=== PATIENT | female | born 1970 | race Caucasian/White ===

== ENCOUNTER 2020-09-21 10:44 | Outpatient (REF) | payer OTHER, SELFPAY ==
[2020-09-21 11:28] LABS: COVID-19 Test Negative (Negative)
== END 2020-09-21 10:45 | disposition home or self-care (01) ==
LOC: HO.LAB 10:44
PROVIDERS: PCP Internal Medicine; Visit Provider Internal Medicine
DX: Z20.828 Contact with and (suspected) exposure to other viral communicable diseases (principal)
CPT/HCPCS: 87635

== ENCOUNTER 2020-09-25 07:37 | Outpatient (REF) | payer OTHER, SELFPAY ==
[2020-09-25 08:00] LABS: COVID-19 Test Negative (Negative)
== END 2020-09-25 07:38 | disposition home or self-care (01) ==
LOC: HO.LAB 07:37
PROVIDERS: Visit Provider Internal Medicine
DX: Z20.828 Contact with and (suspected) exposure to other viral communicable diseases (principal)
CPT/HCPCS: 87635

== ENCOUNTER 2020-10-18 07:27 | Outpatient (REF) | payer OTHER, SELFPAY ==
[2020-10-18 08:14] LABS: COVID-19 Test Positive (Negative); IDNOW Serial# 55D5AD1C
== END 2020-10-18 07:28 | disposition home or self-care (01) ==
LOC: HO.EMPCOV 07:27
PROVIDERS: Visit Provider Internal Medicine
DX: Z20.828 Contact with and (suspected) exposure to other viral communicable diseases (principal)
CPT/HCPCS: 87635; C9803

== ENCOUNTER 2020-12-05 12:27 | Outpatient (REF) | payer OTHER, SELFPAY ==
--- NOTE | 2020-12-05 12:32 | XR_ITS ---
EXAMINATION: XR RIBS, RIGHT CLINICAL INFORMATION: Pleurodynia. COMPARISON: Rib radiographs dated 09/01/2018 TECHNIQUE: PA view of the chest as well as 3 views of the right ribs. FINDINGS: Lungs are clear. No consolidation, pneumothorax, or pleural effusion. The cardiomediastinal silhouette and pulmonary vasculature are normal. Osseous structures are unremarkable. Ribs are intact. No fractures are identified. XR/XR ribs RT min 3V w CXR1V IMPRESSION: No displaced fracture.
== END 2020-12-05 12:28 | disposition home or self-care (01) ==
LOC: HO.XRAY 12:27
PROVIDERS: PCP Internal Medicine; Visit Provider Family Medicine
DX: R07.81 Pleurodynia (principal)
CPT/HCPCS: 71101

== ENCOUNTER 2020-12-29 12:04 | Outpatient (REF) | payer OTHER, SELFPAY ==
--- NOTE | ~2020-12-29 | CT_ITS ---
EXAMINATION: CT ABDOMEN AND PELVIS WITH CONTRAST CLINICAL INFORMATION: Unspecified abdominal pain. COMPARISON: CT scan of the abdomen and pelvis February 2015. TECHNIQUE: Multidetector volumetric images were obtained from the superior aspect of the liver through the pubic symphysis following administration 85 mL of Omnipaque 350 intravenous contrast. Sagittal and coronal reformatted images were obtained on the technologist's workstation. Oral contrast: No This CT examination was performed using dose optimization techniques as appropriate, variously including the following: *Automated exposure control *Adjustment of mA and/or kV according to patient size (this includes techniques or standardized protocols for targeted exams where dose is matched to indication/reason for exam; i.e. extremities or head) *Use of iterative reconstruction technique DLP: 550 mGy-cm FINDINGS: LUNG BASES: The visualized lung bases are unremarkable. LIVER, GALLBLADDER, AND BILIARY TREE: Unchanged scattered low-density lesions throughout the liver some too small to clearly characterize with the largest ones clearly reflecting simple cysts. Smaller lesions less than 1 cm also likely reflect simple cysts and appear unchanged compared to prior. The gallbladder is unremarkable with no evidence of radiopaque gallstones, gallbladder wall thickening, or obvious pericholecystic inflammatory changes. PANCREAS: Unremarkable. SPLEEN: Unremarkable. ADRENAL GLANDS: Unremarkable. KIDNEYS AND URETERS: There are 2 tiny low-density lesions in the cortex of the lower pole of the left kidney too small to clearly characterize but likely reflect simple cysts measuring approximately 3 mm. No stones or solid masses. No urinary tract dilatation. BLADDER: Unremarkable. GASTROINTESTINAL TRACT: There is scattered diverticulosis throughout the descending and sigmoid colon. There is also wall thickening and pericolonic stranding in the proximal sigmoid colon not seen previously. The appearance is characteristic for diverticulitis. The segment of bowel measures approximately 5.6 cm. There is no pericolonic abscess. There is no free air in the abdomen. Appendix normal. Small bowel and stomach normal. ABDOMINAL WALL: No significant hernia is appreciated. LYMPH NODES: Normal. VASCULAR: Mild arterial calcification. PELVIC VISCERA: There is a 2.7 cm simple cyst in the left ovary not seen previously. Trace free fluid in the pelvis likely physiologic. OSSEOUS STRUCTURES: Mild arthrosis of the right hip manifested by small subchondral cysts in the acetabulum unchanged. CT/CT abdomen pelvis w con IMPRESSION: Findings characteristic for acute diverticulitis in the proximal sigmoid colon. Additional findings including stable multiple liver lesions unchanged compatible with simple cysts. Some too small to clearly characterize by CT but likely reflect cysts. Tiny low-density lesions in the left kidney likely small cysts. Simple cyst left ovary. Mild arthrosis of the right hip.
[2020-12-29 14:12] LABS: MANUAL DIFF FLAG NO
[2020-12-29 14:15] LABS: Basophils Percent Auto 0.3 % (0-2); Eosinophils Absolute Auto 0.1 X10*3/uL (0.0-0.4); Eosinophils Percent Auto 0.9 % (0-4); Hematocrit 38.7 % (37-47); Hemoglobin 12.9 g/dl (12.0-16.0); Imm Gran Abs Auto 0.03 X10*3/uL (0.00-0.03); Imm Gran Pct Auto 0.2 % (0.0-0.4); Lymphocytes Absolute Auto 2.4 X10*3/uL (1.2-4.9); Mean Corpuscular HGB Conc 33.3 g/dl (31.0-35.0); Mean Corpuscular Hemoglobin 29.9 pg (27.0-33.0); Mean Corpuscular Volume 89.6 fL (80-98); Mean Platelet Volume 10.8 fL (9.4-12.3); Monocytes Percent Auto 8.1 % (2-11); Neutrophils Absolute Auto 9.2 X10*3/uL (2.0-8.3); Neutrophils Percent Auto 71.5 % (45-73); Platelet Count 197 X10*3/uL (160-400); Red Blood Count 4.32 X10*6/uL (4.20-5.50); Red Cell Distribution Width 12.8 % (11.0-16.0); White Blood Count 12.8 X10*3/uL (4.8-10.8)
[2020-12-29 14:50] LABS: Alanine Aminotransferase 13 U/L (0-31); Albumin Level 4.1 g/dL (3.5-5.0); Alkaline Phosphatase 57 U/L (39-117); Anion Gap 13 (12-20); Aspartate Amino Transferase 14 U/L (5-31); Bilirubin Total 0.9 mg/dL (0.0-1.0); Blood Urea Nitrogen 10 mg/dL (9-16); Calcium 9.2 mg/dL (8.4-10.2); Carbon Dioxide 27 mmol/L (22-29); Chloride 101 mmol/L (96-108); Estimated Glomerular Filt Rate > 60; Glucose Random 88 mg/dL (60-115); Potassium 4.2 mmol/L (3.3-5.1); Sodium 137 mmol/L (135-145); Total Protein 6.9 g/dL (6.5-8.0)
[2020-12-29] MEDS: iohexoL 350 MG/ML 100 ML INFUS..BTL IV (16:53)
[2020-12-29] MEDS: Barium Sulfate Oral (Berry) 450 ML ORAL.SUSP 900 ML PO (16:54)
== END 2020-12-29 12:05 | disposition home or self-care (01) ==
LOC: HO.WFDLDS 12:04
PROVIDERS: Visit Provider Family Medicine
DX: R10.9 Unspecified abdominal pain (principal); R10.829 Rebound abdominal tenderness, unspecified site; N83.292 Other ovarian cyst, left side
CPT/HCPCS: 36415; 74177; 80053; 85025; Q9967

== ENCOUNTER 2020-12-29 18:48 | Emergency (ER) | payer OTHER, SELFPAY ==
[2020-12-29 19:09] VITALS: BP 102/65; PULSE 91; RESP 16; TEMP 37; O2SAT 97; BMI 25.2
== END 2020-12-30 09:39 | disposition left against medical advice (07) ==
PROVIDERS: Emergency Provider Emergency Medicine; PCP Internal Medicine
DX: R10.9 Unspecified abdominal pain (principal)
CPT/HCPCS: 36415; 74177; 80053; 85025; 99283; 99284; Q9967

== ENCOUNTER 2021-01-17 07:44 | Outpatient (REF) | payer OTHER, SELFPAY ==
[2021-01-17 08:05] LABS: COVID-19 Test Negative (Negative)
== END 2021-01-17 07:45 | disposition home or self-care (01) ==
LOC: HO.EMPCOV 07:44
PROVIDERS: Visit Provider Internal Medicine
DX: Z20.822 Contact with and (suspected) exposure to COVID-19 (principal)
CPT/HCPCS: 36415; 87635; C9803

== ENCOUNTER 2021-01-30 11:05 | Outpatient (REF) | payer OTHER, SELFPAY ==
[2021-01-30 11:21] LABS: COVID-19 Test Negative (Negative)
== END 2021-01-30 11:06 | disposition home or self-care (01) ==
LOC: HO.LAB 11:05
PROVIDERS: Visit Provider Internal Medicine
DX: Z11.52 Encounter for screening for COVID-19 (principal)
CPT/HCPCS: 36415; 87635; C9803

== ENCOUNTER 2021-05-03 14:06 | Outpatient (REF) | payer OTHER, SELFPAY ==
--- NOTE | ~2021-05-03 | CT_ITS ---
EXAMINATION: CT ABDOMEN AND PELVIS WITH CONTRAST CLINICAL INFORMATION: R10.9 - Unspecified abdominal pain. Prior history diverticulitis. COMPARISON: CT abdomen and pelvis with IV contrast 12/29/2020 TECHNIQUE: Multidetector volumetric images were obtained from the superior aspect of the liver through the pubic symphysis following administration 85 mL of Omnipaque 350 intravenous contrast. Sagittal and coronal reformatted images were obtained on the technologist's workstation. Oral contrast: No This CT examination was performed using dose optimization techniques as appropriate, variously including the following: *Automated exposure control *Adjustment of mA and/or kV according to patient size (this includes techniques or standardized protocols for targeted exams where dose is matched to indication/reason for exam; i.e. extremities or head) *Use of iterative reconstruction technique DLP: 354 mGy-cm FINDINGS: LUNG BASES: The visualized lung bases are unremarkable. LIVER, GALLBLADDER, AND BILIARY TREE: Liver is normal in size and smooth in contour. There are scattered cysts again seen similar in size and number to prior CT 12/29/2020, largest subcapsular segment 2 left lobe measuring 3.4 cm. There is no intrahepatic ductal dilatation. There is punctate calculus dependent gallbladder on the coronal and sagittal reformatted images, not previously demonstrated. There is no gallbladder wall thickening or pericholecystic inflammatory changes. Common duct is unremarkable. PANCREAS: Unremarkable. SPLEEN: Unremarkable. ADRENAL GLANDS: Unremarkable. KIDNEYS AND URETERS: The kidneys are normal in size, shape, and attenuation. No hydronephrosis, hydroureter, or calculi seen. No perinephric stranding. BLADDER: Unremarkable. GASTROINTESTINAL TRACT: There is subtle long segment wall thickening distal ileum approximately 15 cm in length with mild hyperenhancement of the wall. Semisolid contents are scattered in the lumen without proximal obstruction. No mesenteric stranding. The remainder of the small and large bowel are unremarkable. The appendix is normal. There is no ascites or fluid collection. ABDOMINAL WALL: No significant hernia is appreciated. LYMPH NODES: No retroperitoneal or pelvic lymphadenopathy. There is a 6 mm mesenteric node right lower quadrant within limits of normal. No inguinal lymphadenopathy. VASCULAR: Unremarkable. PELVIC VISCERA: Unremarkable. OSSEOUS STRUCTURES: Unremarkable. No sacroiliitis. CT/CT abdomen pelvis w con IMPRESSION: 1. Suspect mild ileitis, approximately 15 cm in length. No proximal obstruction. 2. Normal appendix. No diverticulitis. No ascites or fluid collection. 3. Scattered hepatic cysts again noted. 4. Probable punctate gallstone. No gallbladder wall thickening or ductal dilatation.
[2021-05-03 14:52] LABS: MANUAL DIFF FLAG NO
[2021-05-03 14:53] LABS: Glucose Urine UA NEG (NEG); Leukocyte Esterase Urine NEG (NEG); Nitrite Urine NEG (NEG); Specific Gravity - Urine 1.025 (1.005-1.025); Urine Blood 1+ (NEG); Urine Ketones >=80 MG/DL (NEG); Urine Protein NEG (NEG-TRACE)
[2021-05-03 14:55] LABS: Basophils Percent Auto 0.1 % (0-2); Eosinophils Percent Auto 0.1 % (0-4); Hematocrit 39.9 % (37-47); Hemoglobin 13.2 g/dl (12.0-16.0); Imm Gran Abs Auto 0.02 X10*3/uL (0.00-0.03); Imm Gran Pct Auto 0.2 % (0.0-0.4); Lymphocytes Absolute Auto 2.5 X10*3/uL (1.2-4.9); Lymphocytes Percent Auto 30.4 % (20-40); Mean Corpuscular HGB Conc 33.1 g/dl (31.0-35.0); Mean Corpuscular Hemoglobin 29.5 pg (27.0-33.0); Mean Corpuscular Volume 89.1 fL (80-98); Mean Platelet Volume 10.7 fL (9.4-12.3); Monocytes Absolute Auto 0.5 X10*3/uL (0.1-1.2); Monocytes Percent Auto 5.8 % (2-11); Neutrophils Absolute Auto 5.1 X10*3/uL (2.0-8.3); Neutrophils Percent Auto 63.4 % (45-73); Platelet Count 223 X10*3/uL (160-400); Red Blood Count 4.48 X10*6/uL (4.20-5.50); Red Cell Distribution Width 12.4 % (11.0-16.0); White Blood Count 8.1 X10*3/uL (4.8-10.8)
[2021-05-03 14:55] LABS: Appearance Urine CLEAR; Color Urine YELLOW
[2021-05-03 15:07] LABS: Squamous Epithelial Cell Urine 1+ /LPF; WBC Urine 0-2 /HPF (0-4)
[2021-05-03 15:08] LABS: Mucus Urine TRACE /LPF
[2021-05-03 15:27] LABS: Alanine Aminotransferase 21 U/L (0-31); Albumin Level 4.5 g/dL (3.5-5.0); Alkaline Phosphatase 56 U/L (39-117); Anion Gap 12 (12-20); Aspartate Amino Transferase 21 U/L (5-31); Bilirubin Total 0.9 mg/dL (0.0-1.0); Blood Urea Nitrogen 14 mg/dL (9-16); Calcium 9.9 mg/dL (8.4-10.2); Carbon Dioxide 25 mmol/L (22-29); Chloride 105 mmol/L (96-108); Estimated Glomerular Filt Rate > 60; Glucose Random 83 mg/dL (60-115); Lipase 12 U/L (8-78); Potassium 3.8 mmol/L (3.3-5.1); Sodium 138 mmol/L (135-145); Total Protein 7.3 g/dL (6.5-8.0)
[2021-05-03 15:39] LABS: Erythrocyte Sedimentation Rate 7 MM/HR (0-20)
== END 2021-05-03 14:07 | disposition home or self-care (01) ==
LOC: HO.CT 14:06
PROVIDERS: PCP Internal Medicine; Visit Provider Internal Medicine
DX: R10.84 Generalized abdominal pain (principal)
CPT/HCPCS: 36415; 74177; 80053; 81001; 83690; 85025; 85652

== ENCOUNTER → 2021-05-08 15:22 | Outpatient (BNVA) | payer OTHER, SELFPAY | PROVIDERS: PCP Internal Medicine; Visit Provider Internal Medicine Gastroenterology ==

== ENCOUNTER 2021-05-09 08:00 | Outpatient (REF) | payer OTHER, SELFPAY ==
[2021-05-09 10:07] LABS: MANUAL DIFF FLAG NO
[2021-05-09 10:15] LABS: Basophils Percent Auto 0.6 % (0-2); Eosinophils Absolute Auto 0.2 X10*3/uL (0.0-0.4); Hematocrit 38.7 % (37-47); Hemoglobin 12.6 g/dl (12.0-16.0); Imm Gran Abs Auto 0.01 X10*3/uL (0.00-0.03); Imm Gran Pct Auto 0.2 % (0.0-0.4); Lymphocytes Absolute Auto 2.2 X10*3/uL (1.2-4.9); Lymphocytes Percent Auto 43.5 % (20-40); Mean Corpuscular HGB Conc 32.6 g/dl (31.0-35.0); Mean Corpuscular Hemoglobin 29.4 pg (27.0-33.0); Mean Corpuscular Volume 90.2 fL (80-98); Monocytes Absolute Auto 0.5 X10*3/uL (0.1-1.2); Monocytes Percent Auto 8.9 % (2-11); Neutrophils Absolute Auto 2.2 X10*3/uL (2.0-8.3); Neutrophils Percent Auto 43.8 % (45-73); Platelet Count 208 X10*3/uL (160-400); Red Blood Count 4.29 X10*6/uL (4.20-5.50); Red Cell Distribution Width 12.7 % (11.0-16.0); White Blood Count 5.1 X10*3/uL (4.8-10.8)
[2021-05-09 10:54] LABS: C Reactive Protein 0.26 mg/dL (< or = 0.50)
[2021-05-09 10:57] LABS: Erythrocyte Sedimentation Rate 5 MM/HR (0-20)
[2021-05-09 12:12] LABS: Vitamin B12 347 pg/mL (200-900)
== END 2021-05-09 08:01 | disposition home or self-care (01) ==
LOC: HO.LAB 08:00
PROVIDERS: PCP Internal Medicine; Visit Provider Internal Medicine Gastroenterology
DX: R10.84 Generalized abdominal pain (principal); R93.5 Abnormal findings on diagnostic imaging of other abdominal regions, including retroperitoneum
CPT/HCPCS: 36415; 81479; 82397; 82607; 82746; 83520; 85025; 85652; 86140; 88346; 88350

== ENCOUNTER 2021-05-14 09:42 | Outpatient (REF) | payer OTHER, SELFPAY ==
[2021-05-18 22:23] LABS: Calprotectin, Fecal 148 mcg/g
== END 2021-05-14 09:43 | disposition home or self-care (01) ==
LOC: HO.LNP 09:42
PROVIDERS: Visit Provider Internal Medicine Gastroenterology
DX: R10.84 Generalized abdominal pain (principal)
CPT/HCPCS: 83993

== ENCOUNTER 2021-05-22 07:04 | Day surgery (SDC) | payer OTHER, SELFPAY ==
--- NOTE | 2021-05-21 10:41 | P.CONAN_ITS ---
Documented by User: Margaret Zuniga 05/21/21 10:42 HPI - Anesthesia Eval Consult details Narrative: 50yo F for Colonoscopy PMFSH Active Problems Active Problems: All Active Problems (Updated 05/15/21 @ 15:33 by Merari Harrison) Rib pain on right side (Acute) Abdominal pain (Acute) Rebound abdominal tenderness (Acute) Abnormal CT of the abdomen (Acute) Ileitis (Acute) Right flank pain (Acute) Diffuse abdominal pain (Acute) Past Medical History Medical History (Updated 05/15/21 @ 15:33 by Merari Harrison) Adopted Diffuse abdominal pain Hx of deep venous thrombosis Ileitis Kidney stone Right flank pain Family History Family History (Updated 05/06/21 @ 21:45 by Faheem Troy MD) Other Unknown family medical history Surgical History Surgical History (Updated 05/15/21 @ 15:33 by Merari Harrison) H/O colonoscopy H/O esophagogastroduodenoscopy History of cystoscopy History of laparoscopy (~2009) History of lithotripsy History of removal of calculus of renal pelvis through percutaneous nephrostomy (~2013) Social History Social History Household Members: Spouse Housing: House Alcohol intake: current Alcohol intake frequency: holidays/special occasions only Patient Tobacco Use Status: Former Tobacco user Quit Date: 1999 Years Smoked: 10 Use of substances other than those prescribed or required for medical reasons: No Are you DNR?: No Advance Directives: No Advance Directives Information Provided: Yes service: No Current occupational status: employed 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 Meds Allergies Allergy/AdvReac Type Severity Reaction Status Date / Time Sulfa (Sulfonamide Allergy Intermediate ITCHING, Verified 05/22/21 07:37 Antibiotics) pruritus [SULFA (SULFONAMIDE ANTIBIOTICS)] Home Medications Medication Instructions Recorded Confirmed Last Taken Type norethindrone (contraceptive) 0.35 0.35 mg PO DAILY 12/04/20 05/08/21 Unknown History mg tablet Exam Exam Date and Time: May 21, 2021 1041 Assessment and Plan Assessment Anesthesia Assessment: Chart Reviewed Documented by User: Amelia Anti 05/22/21 07:55 PMFSH Past Medical History Medical History (Updated 05/15/21 @ 15:33 by Merari Harrison) Adopted Diffuse abdominal pain Hx of deep venous thrombosis Ileitis Kidney stone Right flank pain Family History Family History (Updated 05/06/21 @ 21:45 by Faheem Troy MD) Other Unknown family medical history Surgical History Surgical History (Updated 05/15/21 @ 15:33 by Merari Harrison) H/O colonoscopy H/O esophagogastroduodenoscopy History of cystoscopy History of laparoscopy (~2009) History of lithotripsy History of removal of calculus of renal pelvis through percutaneous nephrostomy (~2013) Social History Social History Household Members: Spouse Housing: House Alcohol intake: current Alcohol intake frequency: holidays/special occasions only Patient Tobacco Use Status: Former Tobacco user Quit Date: 1999 Smoked: 10 Use of substances other than those prescribed or required for medical reasons: No Are you DNR?: No Advance Directives: No Advance Directives Information Provided: Yes service: No Current occupational status: employed 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 Meds Allergies Allergy/AdvReac Type Severity Reaction Status Date / Time Sulfa (Sulfonamide Allergy Intermediate ITCHING, Verified 05/22/21 07:37 Antibiotics) pruritus [SULFA (SULFONAMIDE ANTIBIOTICS)] Home Medications Medication Instructions Recorded Confirmed Last Taken Type norethindrone (contraceptive) 0.35 0.35 mg PO DAILY 12/04/20 05/08/21 Unknown History mg tablet Exam Airway Mallampati Class: I TM Dist: >3cm Neck ROM: Full Loose/Missing/Broken Teeth: Yes (Slightly loose from invisalign) Heart: RRR Lungs: CTA Assessment and Plan Assessment Anesthesia Assessment: Anesthesia Plan Discussed and Chart Reviewed Final Anesthetic Review NPO: Yes ASA Class: II Final Preanesthetic Review: Meds/Allgs Chart Reviewed, Consent Obtained/Reviewed and Anes Risks/Benef Reviewed Patient Risk: Low Procedure Risk: Low Anesthetic Plan Anesthetic Plan: MAC: Disposition: Standard PACU
[2021-05-22 07:16] VITALS: BMI 25.0
[2021-05-22 07:22] VITALS: BP 137/77; PULSE 80; RESP 16; TEMP 36.5; O2SAT 98
[2021-05-22 07:24] LABS: UPreg QC Valid YES; Urine Pregnancy NEGATIVE (NEGATIVE)
--- NOTE | 2021-05-22 07:32 | W.PM.OPN ---
Operative Note Operative Note Date of Service: 05/22/21 Narrative: Pre-op diagnosis: Abdominal pain, abnormal CT scan of the small intestine Post-op diagnosis: other ( ileitis, diverticulosis, hemorrhoids) Procedure: COLONOSCOPY TILL CECUM WITH BIOPSIES Consent: Indications for the procedure and potential complications of bleeding, perforation, reaction to medications and missed diagnosis were discussed with the patient and informed consent was obtained. Instrument: Olympus PCF H 190 L variable stiffness pediatric colonoscope Monitoring: Vital signs and clinical assessment, intermittent blood pressure monitoring, continuous EKG monitoring, Pulse oximetry and Carbon Dioxide monitoring were done throughout the procedure. Colon withdrawl time was 23 minutes. Procedure: The patient was placed in the left lateral decubitis position and pre-procedure medications were administered. After a digital rectal examination of the ano-rectum, the video colonoscope was inserted into the rectum and advanced through the colon to the cecum. The colonoscope was slowly withdrawn in a retrograde panoramic fashion and the colon mucosa was carefully examined including a retroflexed view of the rectum. Findings and interventions are described below. Procedure Difficulty: Without difficulty Findings: Terminal Ileum: Distal 15 cms was examined and showed edema, erythema with luminal narrowing and scattered 4-5 mm ulcers - biopsies were obtained Cecum: Normal Ascending Colon: Normal Transverse Colon: Normal Descending Colon: Moderate diverticulosis Sigmoid Colon: Moderate diverticulosis Rectum: Normal Ano-rectum: Small internal hemorrhoids Colon preparation: Good Impression and Post Procedure Diagnosis: Colonoscopy Findings: No polyps were detected Random biopsies were obtained pelvic TI, right and left colon to check for IBD Moderate diverticulosis seen in the left colon Small hemorrhoids on retroflexed exam. Plan: Await pathology results Patient has an appointment on 06/07/21 in the [facility] with Trudy Baltazar M.D.. Repeat Colonoscopy in 5 years if biopsies are normal. Above findings were reviewed with the patient and diverticulosis handouts were given in the discharge area Surgeon: Trudy Baltazar MD Anesthesia: MAC (Shabnam Cooper CRNA) Was an Envelope Stamping Machine Operator used for this Procedure?: Yes Envelope Stamping Machine Operator: Patrizia Faith Estimated blood loss (mL): 0 Pathology: other (A. TERMINAL ILEUM BX'S R/O CROHNS DISEASE B. RIGHT COLON BX'S R/O IBD C. LEFT COLON BX'S R/O IBD) Condition: stable Disposition: PACU
--- NOTE | 2021-05-22 07:32 | MHC.SHP ---
Pre-Procedural Eval Section A Date of Service: 05/22/21 The patient is an INPATIENT: No Changes since office visit: Yes Patient answered all questions; No Cold of Flu in the past 2 weeks, No New Medical Problems and No Changes in Medication The History & Physical has been completed within 30 days and I have reviewed it.: Yes Section B Chief Complaint: Generalized abdominal pain Allergies: Allergies Allergy/AdvReac Type Severity Reaction Status Date / Time Sulfa (Sulfonamide Allergy Intermediate ITCHING, Verified 05/08/21 15:32 Antibiotics) pruritus [SULFA (SULFONAMIDE ANTIBIOTICS)] Plan I have reviewed the history and physical and performed a pertinent physical examination on my patient. No changes have occurred unless specified.
[2021-05-22] MEDS: Lactated Ringers 1,000 ML 100 ML IVCONT (07:36)
[2021-05-22 08:41] VITALS: BP 105/63; PULSE 73; RESP 14; TEMP 36.3; O2SAT 100
[2021-05-22 08:56] VITALS: BP 108/71; PULSE 83; RESP 16; TEMP 36.3; O2SAT 99
== END 2021-05-22 09:46 | disposition home or self-care (01) ==
PROVIDERS: Nurse Practitioner; PCP Internal Medicine; Visit Provider Internal Medicine Gastroenterology
PROC: 0DJD8ZZ Inspection of Lower Intestinal Tract, Via Natural or Artificial Opening Endoscopic (ICD-10-PCS; CPT 45378; principal; 2021-05-22 08:10)
DX: R10.84 Generalized abdominal pain (principal); K57.30 Diverticulosis of large intestine without perforation or abscess without bleeding; K64.8 Other hemorrhoids; K52.9 Noninfective gastroenteritis and colitis, unspecified; Z79.899 Other long term (current) drug therapy; Z88.2 Allergy status to sulfonamides; Z86.718 Personal history of other venous thrombosis and embolism; Z87.442 Personal history of urinary calculi; Z87.891 Personal history of nicotine dependence
CPT/HCPCS: 45380; 81025; 88305

== ENCOUNTER → 2021-06-07 09:22 | Outpatient (BNVA) | payer OTHER, SELFPAY | PROVIDERS: PCP Internal Medicine; Visit Provider Internal Medicine Gastroenterology ==

== ENCOUNTER 2021-08-01 16:27 | Outpatient (REF) | payer OTHER, SELFPAY ==
[2021-08-01 17:11] LABS: MANUAL DIFF FLAG NO
[2021-08-01 17:18] LABS: Appearance Urine HAZY; Color Urine YELLOW; Glucose Urine UA NEG (NEG); Leukocyte Esterase Urine NEG (NEG); Nitrite Urine NEG (NEG); UACC Culture Trigger NO; Urine Blood 2+ (NEG); Urine Ketones NEG (NEG); Urine Protein NEG (NEG-TRACE)
[2021-08-01 17:20] LABS: Basophils Percent Auto 0.7 % (0-2); Eosinophils Absolute Auto 0.2 X10*3/uL (0.0-0.4); Eosinophils Percent Auto 3.2 % (0-4); Hematocrit 37.7 % (37-47); Hemoglobin 12.7 g/dl (12.0-16.0); Imm Gran Abs Auto 0.01 X10*3/uL (0.00-0.03); Imm Gran Pct Auto 0.2 % (0.0-0.4); Lymphocytes Absolute Auto 2.3 X10*3/uL (1.2-4.9); Lymphocytes Percent Auto 40.9 % (20-40); Mean Corpuscular HGB Conc 33.7 g/dl (31.0-35.0); Mean Corpuscular Hemoglobin 30.2 pg (27.0-33.0); Mean Corpuscular Volume 89.8 fL (80-98); Monocytes Absolute Auto 0.4 X10*3/uL (0.1-1.2); Monocytes Percent Auto 7.7 % (2-11); Neutrophils Absolute Auto 2.6 X10*3/uL (2.0-8.3); Neutrophils Percent Auto 47.3 % (45-73); Platelet Count 184 X10*3/uL (160-400); Red Cell Distribution Width 12.6 % (11.0-16.0); White Blood Count 5.6 X10*3/uL (4.8-10.8)
[2021-08-01 17:27] LABS: Bacteria Urine TRACE /LPF; Mucus Urine 2+ /LPF; Renal Epithelial Cells Urine TRACE /LPF; Squamous Epithelial Cell Urine 3+ /LPF; WBC Urine 0 /HPF (0-4)
[2021-08-01 17:43] LABS: Lipase 16 U/L (8-78)
[2021-08-01 18:35] LABS: Erythrocyte Sedimentation Rate 4 MM/HR (0-20)
== END 2021-08-01 16:28 | disposition home or self-care (01) ==
LOC: HO.LAB 16:27
PROVIDERS: PCP Internal Medicine; Visit Provider Internal Medicine Gastroenterology
DX: K57.92 Diverticulitis of intestine, part unspecified, without perforation or abscess without bleeding (principal); R10.84 Generalized abdominal pain
CPT/HCPCS: 36415; 81001; 83690; 85025; 85652; 86140

== ENCOUNTER → 2021-08-02 14:45 | Outpatient (BNVA) | payer OTHER, SELFPAY | PROVIDERS: PCP Internal Medicine; Visit Provider Internal Medicine Gastroenterology ==

== ENCOUNTER → 2021-09-19 11:22 | Outpatient (BNVA) | payer SELFPAY | PROVIDERS: PCP Internal Medicine; Visit Provider Physician Assistant | DX: Z02.79 Encounter for issue of other medical certificate (principal) ==

== ENCOUNTER 2021-10-23 08:02 | Outpatient (REF) | payer OTHER, SELFPAY ==
[2021-10-23 08:29] LABS: Binax Internal Control QC Valid; Binax Lot number: 1911; Binax Now Covid-19 Ag Negative (Negative)
== END 2021-10-23 08:03 | disposition home or self-care (01) ==
LOC: HO.LAB 08:02
PROVIDERS: PCP Internal Medicine; Visit Provider Internal Medicine
DX: Z20.822 Contact with and (suspected) exposure to COVID-19 (principal)
CPT/HCPCS: C9803

== ENCOUNTER → 2022-01-31 11:07 | Outpatient (BNVA) | payer OTHER, SELFPAY | PROVIDERS: Referring Provider Internal Medicine; Visit Provider Internal Medicine Gastroenterology ==

== ENCOUNTER 2022-02-01 08:11 | Outpatient (REF) | payer OTHER, SELFPAY ==
[2022-02-01 08:43] LABS: MANUAL DIFF FLAG NO
[2022-02-01 09:12] LABS: Basophils Absolute Auto 0.1 X10*3/uL (0.0-0.2); Basophils Percent Auto 0.9 % (0-2); Eosinophils Absolute Auto 0.2 X10*3/uL (0.0-0.4); Eosinophils Percent Auto 2.9 % (0-4); Hematocrit 40.1 % (37.0-47.0); Hemoglobin 12.9 g/dl (12.0-16.0); Imm Gran Abs Auto 0.01 X10*3/uL (0.00-0.03); Imm Gran Pct Auto 0.2 % (0.0-0.4); Lymphocytes Absolute Auto 2.6 X10*3/uL (1.2-4.9); Lymphocytes Percent Auto 44.7 % (20-40); Mean Corpuscular HGB Conc 32.2 g/dl (31.0-35.0); Mean Corpuscular Hemoglobin 29.3 pg (27.0-33.0); Mean Corpuscular Volume 90.9 fL (80.0-98.0); Mean Platelet Volume 10.7 fL (9.4-12.3); Monocytes Absolute Auto 0.5 X10*3/uL (0.1-1.2); Monocytes Percent Auto 7.9 % (2-11); Neutrophils Absolute Auto 2.5 x10*3/uL (2.0-8.3); Neutrophils Percent Auto 43.4 % (45-73); Platelet Count 199 X10*3/uL (160-400); Red Blood Count 4.41 X10*6/uL (4.20-5.50); Red Cell Distribution Width 12.7 % (11.0-16.0); White Blood Count 5.8 X10*3/uL (4.8-10.8)
[2022-02-01 09:36] LABS: Alanine Aminotransferase 16 U/L (0-31); Albumin Level 4.2 g/dL (3.5-5.0); Alkaline Phosphatase 44 U/L (39-117); Aspartate Amino Transferase 17 U/L (5-31); Bilirubin Direct 0.2 mg/dL (0.0-0.5); Bilirubin Total 0.6 mg/dL (0.0-1.0); Blood Urea Nitrogen 12 mg/dL (9-16); C Reactive Protein 0.23 mg/dL (< or = 0.50); Estimated Glomerular Filt Rate > 60; Total Protein 6.9 g/dL (6.5-8.0)
== END 2022-02-01 08:12 | disposition home or self-care (01) ==
LOC: HO.LAB 08:11
PROVIDERS: PCP Internal Medicine; Visit Provider Internal Medicine Gastroenterology
DX: K52.9 Noninfective gastroenteritis and colitis, unspecified (principal)
CPT/HCPCS: 36415; 80076; 82565; 84520; 85025; 86140

== ENCOUNTER 2022-07-24 06:23 | Outpatient (REF) | payer OTHER, SELFPAY ==
--- NOTE | ~2022-07-24 | CT_ITS ---
EXAMINATION: CT ABDOMEN AND PELVIS WITH CONTRAST CLINICAL INFORMATION: Abdominal pain. Follow-up question ileitis on prior CT COMPARISON: Previous CT of the abdomen and pelvis April 2021 TECHNIQUE: Multidetector volumetric images were obtained from the superior aspect of the liver through the pubic symphysis following administration 85 mL of Omnipaque 350 intravenous contrast. Sagittal and coronal reformatted images were obtained on the technologist's workstation. Oral contrast: Yes This CT examination was performed using dose optimization techniques as appropriate, variously including the following: *Automated exposure control *Adjustment of mA and/or kV according to patient size (this includes techniques or standardized protocols for targeted exams where dose is matched to indication/reason for exam; i.e. extremities or head) *Use of iterative reconstruction technique DLP: 327 mGy-cm FINDINGS: LUNG BASES: The visualized lung bases are unremarkable. LIVER, GALLBLADDER, AND BILIARY TREE: There are multiple liver cysts that are stable. The largest measures 4 x 5 cm in the lateral segment of the left lobe of the liver. The gallbladder is normal. There is no biliary duct dilatation. PANCREAS: Unremarkable. SPLEEN: Unremarkable. ADRENAL GLANDS: Unremarkable. KIDNEYS AND URETERS: The kidneys are normal in size, shape, and attenuation. There is fullness of the left renal pelvis questionable for mild UPJ obstruction. The right kidney is normal BLADDER: Unremarkable. GASTROINTESTINAL TRACT: There is diverticulosis of the colon. There is a stool in the distal colon questionable for mild constipation. The terminal ileum is slightly distended measuring up to 1.9 cm. This demonstrates slight irregular or tethered course and wall irregularity. No wall thickening or enhancement to suggest acute ileitis is seen. No stricture or evidence of obstruction is seen. The small and large bowel is otherwise normal. The appendix is normal. The stomach is normal. ABDOMINAL WALL: No significant hernia is appreciated. LYMPH NODES: There are small, small bowel mesentery lymph nodes. No enlarged lymph nodes are seen. No ascites. VASCULAR: Unremarkable. PELVIC VISCERA: Heterogeneous appearing uterus questionable for small fibroids. Adnexa appear unremarkable. OSSEOUS STRUCTURES: Unremarkable. CT/CT abdomen pelvis w IV con IMPRESSION: Probable old postinflammatory changes of the terminal ileum with slight dilatation, mild wall irregularity and irregular tethered course. No evidence of active ileitis. Stable multiple liver cysts. Fleischner guidelines were followed.
[2022-07-24] MEDS: iohexoL 350 MG/ML 75 ML INFUS..BTL 85 ML IV (08:21)
[2022-07-24] MEDS: Barium Sulfate Oral (Vanilla) 450 ML ORAL.SUSP 900 ML PO (08:21)
== END 2022-07-24 06:24 | disposition home or self-care (01) ==
LOC: HO.CT 06:23
PROVIDERS: Visit Provider Internal Medicine Gastroenterology
DX: R93.5 Abnormal findings on diagnostic imaging of other abdominal regions, including retroperitoneum (principal)
CPT/HCPCS: 74177; Q9967

== ENCOUNTER 2022-08-08 09:26 | Outpatient (REF) | payer OTHER, SELFPAY ==
--- NOTE | 2022-08-08 09:32 | ECG_ITS ---
Test Reason : K57.92, Z01.818 Blood Pressure : / mmHG Vent. Rate : 058 BPM Atrial Rate : 058 BPM P-R Int : 146 ms QRS Dur : 090 ms QT Int : 418 ms P-R-T Axes : 073 047 050 degrees QTc Int : 410 ms Sinus bradycardia Otherwise normal ECG No previous ECGs available Referred By: Faheem Troy Electronically Signed By:WHIT ACOSTA
[2022-08-08 10:01] LABS: MANUAL DIFF FLAG NO
[2022-08-08 10:18] LABS: Basophils Percent Auto 0.8 % (0-2); Eosinophils Absolute Auto 0.1 X10*3/uL (0.0-0.4); Eosinophils Percent Auto 1.7 % (0-4); Hematocrit 38.8 % (37.0-47.0); Hemoglobin 12.9 g/dl (12.0-16.0); Imm Gran Abs Auto 0.01 X10*3/uL (0.00-0.03); Imm Gran Pct Auto 0.2 % (0.0-0.4); Lymphocytes Absolute Auto 1.9 X10*3/uL (1.2-4.9); Lymphocytes Percent Auto 35.2 % (20-40); Mean Corpuscular HGB Conc 33.2 g/dl (31.0-35.0); Mean Corpuscular Hemoglobin 29.7 pg (27.0-33.0); Mean Corpuscular Volume 89.2 fL (80.0-98.0); Mean Platelet Volume 10.6 fL (9.4-12.3); Monocytes Absolute Auto 0.4 X10*3/uL (0.1-1.2); Monocytes Percent Auto 7.2 % (2-11); Neutrophils Absolute Auto 2.9 x10*3/uL (2.0-8.3); Neutrophils Percent Auto 54.9 % (45-73); Platelet Count 176 X10*3/uL (160-400); Red Blood Count 4.35 X10*6/uL (4.20-5.50); Red Cell Distribution Width 12.6 % (11.0-16.0); White Blood Count 5.3 X10*3/uL (4.8-10.8)
[2022-08-08 10:23] LABS: INTERNATIONAL NORM RATIO 0.9 (0.9-1.1); Prothrombin Time 10.7 SEC (10.0-13.1)
[2022-08-08 10:26] LABS: Partial Thromboplastin Time 29.4 SEC (26.0-36.4)
[2022-08-08 10:59] LABS: Alanine Aminotransferase 33 U/L (0-31); Albumin Level 4.3 g/dL (3.5-5.0); Alkaline Phosphatase 40 U/L (39-117); Anion Gap 15 (12-20); Aspartate Amino Transferase 24 U/L (5-31); Bilirubin Total 0.8 mg/dL (0.0-1.0); Blood Urea Nitrogen 13 mg/dL (9-16); C Reactive Protein 0.12 mg/dL (< or = 0.50); Calcium 9.4 mg/dL (8.4-10.2); Carbon Dioxide 23 mmol/L (22-29); Chloride 106 mmol/L (96-108); Estimated Glomerular Filt Rate > 60; Glucose Random 80 mg/dL (60-115); Lipase 27 U/L (8-78); Potassium 4.3 mmol/L (3.3-5.1); Sodium 140 mmol/L (135-145); Total Protein 6.9 g/dL (6.5-8.0)
[2022-08-08 11:29] LABS: Erythrocyte Sedimentation Rate 3 MM/HR (0-20)
[2022-08-11 18:37] LABS: Anti-Thrombin III Antigen 87 % (80-120)
== END 2022-08-08 09:27 | disposition home or self-care (01) ==
LOC: HO.LAB 09:26
PROVIDERS: PCP Internal Medicine; Visit Provider Internal Medicine
DX: Z01.818 Encounter for other preprocedural examination (principal); K57.92 Diverticulitis of intestine, part unspecified, without perforation or abscess without bleeding; C50.912 Malignant neoplasm of unspecified site of left female breast; M79.7 Fibromyalgia; R10.9 Unspecified abdominal pain; K52.9 Noninfective gastroenteritis and colitis, unspecified; Z86.718 Personal history of other venous thrombosis and embolism
CPT/HCPCS: 36415; 80053; 83690; 84443; 85025; 85301; 85610; 85652; 85730; 86140; 93005

== ENCOUNTER 2023-01-10 08:27 | Outpatient (AMB) | payer OTHER, SELFPAY ==
--- NOTE | 2023-01-10 08:49 | MHC.OFFVIS ---
Intake Intake Visit Reasons: 6 month follow up Intake Note: Patient follow up for abdominal pain and lab, fecal and CT results. Patient cc: constipation and denies any other GI issues. 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: No Allergies Sulfa (Sulfonamide Antibiotics) [SULFA (SULFONAMIDE ANTIBIOTICS)] Allergy (Intermediate, Verified 09/05/23 19:21) ITCHING, pruritus Medication List - Last Reconciled 01/10/23 by Trudy Baltazar MD calcium carbonate (Calcium 500) 500 mg PO DAILY cholecalciferol (vitamin D3) 50 mcg PO DAILY docusate sodium (Colace) 300 mg PO DAILY duloxetine 20 mg PO DAILY ibuprofen 800 mg PO TID PRN letrozole 2.5 mg PO DAILY leuprolide (3 month) (Lupron Depot) 22.5 mg IM [id number] mesalamine ER (Pentasa) 500 mg PO TID 30 days polyethylene glycol 3350 (Miralax) 17 grams PO DAILY HPI 6 month follow up HPI Details Telemedicine visit for this 52-year-old female for FU of diverticulitis and ileitis. 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 Had repeat surgery due to infection. She has been seen at the [facility] [place] [facility] advised screening for Ovarian and Pancreatic CA (Referred to Dr Peng at [facility] for pancreatic cancer screening) Pt has a hx of endometriosis, gallstones, kidney stones and questionable history of atrial flutter IMAGING STUDIES:? 07/24/[address] SCAN SHOWED: GASTROINTESTINAL TRACT: There is diverticulosis of the colon. There is a stool in the distal colon questionable for mild constipation. The terminal ileum is slightly distended measuring up to 1.9 cm. This demonstrates slight irregular or tethered course and wall irregularity. No wall thickening or enhancement to suggest acute ileitis is seen. No stricture or evidence of obstruction is seen. The small and large bowel is otherwise normal. The appendix is normal. The stomach is normal. 05/03/[address] scan showed 1. Suspect mild ileitis, approximately 15 cm in length. No proximal obstruction. 2. Normal appendix. No diverticulitis. No ascites or fluid collection. 3. Scattered hepatic cysts again noted. 4. Probable punctate gallstone. No gallbladder wall thickening or ductal dilatation. ENDOSCOPIC STUDIES:? 05/22/21 COLONOSCOPY SHOWED: Terminal Ileum: Distal 15 cms was examined and showed edema, erythema with luminal narrowing and scattered 4-5 mm ulcers - biopsies were obtained Impression and Post Procedure Diagnosis: No polyps were detected Random biopsies were obtained pelvic TI, right and left colon to check for IBD Moderate diverticulosis seen in the left colon Small hemorrhoids on retroflexed exam. Plan:? Repeat Colonoscopy in 5 years if biopsies are normal. Above findings were reviewed with the patient and? diverticulosis handouts were given in the discharge area BIOPSIES SHOWED: A.? Terminal ileum, biopsy:? Actively inflamed ileocolonic mucosa; no fully developed chronic injury seen. B.? Colon, right, biopsy:? Colonic mucosa within normal limits. C.? Colon, left, biopsy:? Colonic mucosa within normal limits. COMMENT:? The differential diagnosis for active inflammation in the terminal ileum in this case includes incipient inflammatory bowel disease, infection, drugs (e.g. NSAIDs) and other immune mediated processes.? No chronic inflammatory change is seen.? Please correlate with clinical history. TODAY'S VISIT: Always constipated due to multiple medications. Has a BM once every 3 days Taking colace 3 times a day and trying to use the Miralax Takes 3 days for Miralax to work. Has a weird feeling in her intestines - ? burning feeling. PAST VISITS: Abd CT results reviewed Denies recurrent abdominal pain. Has noted minor flare ups - starts with constipation, lower abdominal pain. Pain resolves once she is able to have a BM. Taking Pentasa to 2 capsules (1 gram) TID and increased to QID during episodes of abdominal pain with improvement.? Takes Miralax prn and advised to take it daily when she has constipation. I have my moment when I do not feel very good Had shooting pains in the lower abdomen - front lower area in the same spot? - resolves in 5 or 10 min. Comes on randomly without clear precipitating factors. Can come on even if she had'nt eaten anything. Unclear if abdominal pain is related to endometriosis. BM are normal since she has been taking the mesalamine three times a day. 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 On most days she notes LLQ pain which is usually always there - some days its worse Worse when she has occasional constipation. 2 months ago she had pea soup and was in terrible pain x 2 weeks Normally takes Pentasa twice a day. Increased Pentasa to 3 to 4 times a day and feels it helps Continuing to take the probiotics Avoiding nuts, popcorn and sesame seeds. Denies fever, chills or sweating Notes pain and gas if she does not eat for a long time. 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 Pain resolved after she took antibiotics in mid June. Had lower abdominal pain when she woke up on Thinks pain started after she had a vegetable stir huber with sesame seeds the night before. Pain is not as bad and feels a little better Has been eating a lot of yogurt. Took some Miralax yesterday since she did not have a BM yesterday. Notes some pain when she sits down - had pain while walking yesterday. Has good days and bad days. Notes bloating and stabbing pain once in a while when she is constipated Pain is random and unable to identifywhat triggers the pain. Eating salads almost every day and avoiding gluten since it aggravates the endometriosis. Takes Ibuprofen occasionally and has not taken it in a long time - over a month ago. Takes 1/2 800 mg tablet less than once a month. Episode of diverticulitis in Dec and resolved after a week with antibitoics. Noted intermittent stabbing pain since the past few weeks which resolved after a BM upper abdominal pain became worse and notes radiating to the back Pain is stabbing and constant and 8/10 in intensity No change in pain when she eats - once it felt worse after eating for a little Diagnosed with IBS with diarrhea a few yrs ago when she had post prandial diarrhea - slowly resolved Denies fever, chills heartburn, dysphagia, nausea, vomiting, change in appetite or weight. Denies recent change in bowel habits, constipation, diarrhea, black stools or rectal bleeding. Patient denies major cardiac or pulmonary problems, loud snoring or sleep apnea Denies problems with anesthesia in the past. Denies being on chronic anticoagulation. Denies mouth ulcers, skin rash or joint pains Past hx of a facial rash with itching - dominguez was negative for Lupus. Family history not known since she is?ad[facility]ed [facility] Medical History Arthralgia Vitamin D deficiency 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 of left breast, stage 1 (~05/2022) Hx of deep venous thrombosis Adopted Ileitis Right flank pain Diffuse abdominal pain Kidney stone Surgical History History of bilateral salpingo-oophorectomy (BSO) Hx of bilateral mastectomy (~08/19/22) History of cystoscopy History of lithotripsy H/O esophagogastroduodenoscopy H/O colonoscopy (~05/22/21) History of laparoscopy (~2009) History of removal of calculus of renal pelvis through percutaneous nephrostomy (~2013) Family History Other Unknown family medical history Social History Household Members: Spouse Housing: House Alcohol intake: current Alcohol intake frequency: holidays/special occasions only Patient Tobacco Use Status: Former Tobacco user Quit Date: 1999 Smoked: 10 e-Cigarette/Vaping Use: Never Used service: No Current occupational status: unemployed Current occupation: right hand dominant Cognitive needs: No Hearing needs: No Vision needs: Yes Review of Systems Const All systems reviewed & are unremarkable except as noted in HPI and below Assessment & Plan Assessment & Plan (1) Diverticulitis: Code(s): K57.92 - Diverticulitis of intestine, part unspecified, without perforation or abscess without bleeding (2) Abdominal pain: Code(s): R10.9 - Unspecified abdominal pain (3) Ileitis: Code(s): K52.9 - Noninfective gastroenteritis and colitis, unspecified (4) Diffuse abdominal pain: Code(s): R10.84 - Generalized abdominal pain (5) Drug induced constipation: Code(s): K59.03 - Drug induced constipation Plan 52 YF with worsening upper abdominal pain radiating to the back - improving slowly after she started taking antibiotics Abd CT scan showed ileitis - possibly related to bacterial gastroenteritis versus Crohn's disease Episode of diverticulitis in Dec, 2020 (confirmed on CT scan) and resolved with antibiotic treatment. Further evaluation with labs showed an elevated fecal calprotectin of 148 and IBD serologies were normal. Colonoscopy showed moderate left sided diverticulosis and edema, erythema with luminal narrowing and scattered 4-5 mm ulcers in the TI - biopsies were obtained TI bx (reviewed with pathology) revealed actively inflamed ileocolonic mucosa; no fully developed chronic injury seen. Left sided abdominal pain possibly due to painful diverticular disease versus kidney stones versus endometriosis. Pt was advised to increase Pentasa to 2 capsules (1 gram) TID with improvement in abdominal pain.? 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 She has been seen at the [facility] at [facility] and advised screening for Ovarian and Pancreatic CA (Referred to Dr Peng at [facility] for pancreatic cancer screening). 01/10/23 Always constipated due to multiple medications. Has a BM once every 3 days Taking colace 3 times a day and trying to use the Miralax Pt was advised to take Senna once daily for constipation Follow-up appointment in 6 months Orders: Orders Complete Blood Count Auto Diff 01/10/23 K52.9 - Noninfective gastroenteritis and colitis, unspecified C Reactive Protein 01/10/23 K52.9 - Noninfective gastroenteritis and colitis, unspecified Vitamin D 25-OH Total 01/10/23 K52.9 - Noninfective gastroenteritis and colitis, unspecified Comprehensive Met. Panel 01/10/23 K52.9 - Noninfective gastroenteritis and colitis, unspecified Medications: New sennosides (senna) 8.6 mg PO DAILY PRN 60 caps 2RF constipation 60 days K59.03 - Drug induced constipation Telehealth Telehealth Location of provider rendering services: practice address Location of patient: address on file Patient Identification confirmed using: Name, : Yes Telehealth method: voice only Patient verbally consented to treatment: Yes Patient verbally consented to billing insurance company: Yes Patient informed of any privacy concerns related to visit: Yes Minutes spent on Phone/Video with Pt.: 15 Coding Level of Care Code Tele Est Pt Level 3 (53407) Diagnoses Diverticulitis K57.92 Abdominal pain R10.9 Ileitis K52.9 Diffuse abdominal pain R10.84 Drug induced constipation K59.03 Time Spent (min) 18
== END 2023-01-10 10:51 | disposition home or self-care (01) ==
LOC: HO.HGI 08:27
PROVIDERS: PCP Internal Medicine; Visit Provider Internal Medicine Gastroenterology
DX: K57.92 Diverticulitis of intestine, part unspecified, without perforation or abscess without bleeding (principal); R10.9 Unspecified abdominal pain; K52.9 Noninfective gastroenteritis and colitis, unspecified; R10.84 Generalized abdominal pain; K59.03 Drug induced constipation
CPT/HCPCS: 99214

== ENCOUNTER → 2023-01-10 08:27 | Outpatient (BNVA) | payer OTHER, SELFPAY | PROVIDERS: PCP Internal Medicine; Visit Provider Internal Medicine Gastroenterology | DX: Z13.89 Encounter for screening for other disorder (principal) ==

== ENCOUNTER 2023-04-01 17:00 | Outpatient (RCR) | payer OTHER, SELFPAY | END 2023-05-29 14:04 | disposition home or self-care (01) | LOC: HO.PT 17:00 | PROVIDERS: PCP Internal Medicine; Visit Provider Internal Medicine Hematology | DX: M25.511 Pain in right shoulder (principal) | CPT/HCPCS: 97110; 97162; 97164 ==

== ENCOUNTER 2023-06-06 11:47 | Outpatient (AMB) | payer OTHER, SELFPAY ==
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
[2023-06-06 11:54] VITALS: BP 118/78; PULSE 68; O2SAT 98
== END 2023-06-06 12:18 | disposition home or self-care (01) ==
PROVIDERS: PCP Internal Medicine; Visit Provider Physician Assistant Medical
DX: R07.81 Pleurodynia (principal)
CPT/HCPCS: 99213

== ENCOUNTER 2023-06-06 12:28 | Outpatient (REF) | payer OTHER, SELFPAY ==
--- NOTE | ~2023-06-06 | XR_ITS ---
EXAMINATION: XR RIBS, RIGHT, WITH PA CHEST CLINICAL INFORMATION: Pleurodynia COMPARISON: 12/05/2020 TECHNIQUE: 3 views of the right ribs, and PA view of chest, were obtained. FINDINGS: Lungs are well-inflated and clear. Trachea is midline in position. No interstitial disease, consolidation or mass. No pleural effusion or pneumothorax. Cardiac silhouette and pulmonary vessels are normal in size. The mediastinum and kal have normal contour. Bilateral breast implants are noted. On one of the oblique views of the right chest, there appears to be a subtle nondisplaced fracture of the right anterolateral eighth rib (in the region of patient's pain). XR/XR ribs RT min 3V w CXR1V IMPRESSION: * No acute cardiopulmonary abnormality. * There appears to be a subtle nondisplaced fracture of the right anterolateral eighth rib.
== END 2023-06-06 12:29 | disposition home or self-care (01) ==
LOC: HO.XRAY 12:28
PROVIDERS: PCP Internal Medicine; Visit Provider Physician Assistant Medical
DX: R07.81 Pleurodynia (principal); R06.02 Shortness of breath
CPT/HCPCS: 71101

== ENCOUNTER 2023-06-17 08:33 | Outpatient (AMB) | payer OTHER, SELFPAY ==
[2023-06-17 08:35] VITALS: BP 112/78; PULSE 78; O2SAT 98; BMI 26.5
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
== END 2023-06-17 09:43 | disposition home or self-care (01) ==
PROVIDERS: PCP Internal Medicine; Visit Provider Internal Medicine
DX: S22.31XD Fracture of one rib, right side, subsequent encounter for fracture with routine healing (principal); V89.2XXA Person injured in unspecified motor-vehicle accident, traffic, initial encounter
CPT/HCPCS: 99213

== ENCOUNTER 2023-06-17 11:12 | Outpatient (REF) | payer OTHER, SELFPAY ==
--- NOTE | ~2023-06-17 | XR_ITS ---
EXAMINATION: XR RIBS, RIGHT, PA CHEST CLINICAL INFORMATION: Rib pain. COMPARISON: None available. TECHNIQUE: 3 views of the right ribs were obtained along with a PA view of the chest. A skin marker overlies the inferolateral right chest. FINDINGS: Lungs are clear. No consolidation, pneumothorax, or pleural effusion. The cardiomediastinal silhouette and pulmonary vasculature are normal. Acute, nondisplaced fractures of the posterolateral right seventh and eighth ribs are seen. No fractures are identified. XR/XR ribs RT min 3V w CXR1V IMPRESSION: 1. Acute, nondisplaced fractures of the posterolateral right seventh and eighth ribs. 2. No acute cardiopulmonary process.
== END 2023-06-17 11:13 | disposition home or self-care (01) ==
LOC: HO.XRAY 11:12
PROVIDERS: PCP Internal Medicine; Visit Provider Internal Medicine
DX: S22.31XA Fracture of one rib, right side, initial encounter for closed fracture (principal); R07.89 Other chest pain; V89.2XXA Person injured in unspecified motor-vehicle accident, traffic, initial encounter; Y93.9 Activity, unspecified; Y92.9 Unspecified place or not applicable; Y99.9 Unspecified external cause status
CPT/HCPCS: 71101

== ENCOUNTER 2023-07-02 09:00 | Outpatient (AMB) | payer OTHER, SELFPAY ==
[2023-07-02 09:01] VITALS: BP 118/78; PULSE 75; O2SAT 98; BMI 26.5
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
== END 2023-07-02 09:43 | disposition home or self-care (01) ==
PROVIDERS: PCP Internal Medicine; Visit Provider Internal Medicine
DX: S22.31XD Fracture of one rib, right side, subsequent encounter for fracture with routine healing (principal); V89.2XXD Person injured in unspecified motor-vehicle accident, traffic, subsequent encounter
CPT/HCPCS: 99213

== ENCOUNTER 2023-08-18 09:23 | Outpatient (AMB) | payer OTHER, SELFPAY ==
[2023-08-18 10:29] VITALS: BP 124/78; PULSE 74; TEMP 36.6; O2SAT 98; BMI 27.7
--- NOTE | 2023-08-18 10:29 | AM.OFFWIN_ITS ---
Intake Vital Signs 08/18/23 10:29 Height 5 ft 7 in Weight 80.286 kg BMI 27.7 BP 124/78 Blood Pressure Location Lt brachial Position Sitting Pulse 74 Pulse Source Pulse Oximeter Temp 97.8 F Temp Source Temporal Artery Scan Pulse Oximetry (%) 98 Intake Visit Reasons: EP hand Injury Intake Note: pt is here for c/o hand injury at work but not going through workers comp, hand was slammed in truck door Patient Tobacco Use Status: Former Tobacco user Quit Date: 1999 Allergies Sulfa (Sulfonamide Antibiotics) [SULFA (SULFONAMIDE ANTIBIOTICS)] Allergy (Intermediate, Verified 08/18/23 10:32) ITCHING, pruritus Do you need a note to return to daycare/school/sports/work: Yes HPI EP hand Injury HPI Details Patient presents with pain in her right 3rd 4th and 5th fingers after crushing them in a truck door this a.m. she is having pain swelling and bruising and difficulty with range of motion of said fingers. No history of other pain or injury. 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 Right flank pain Vitamin D deficiency Surgical History H/O colonoscopy (~05/22/21) H/O esophagogastroduodenoscopy History of bilateral salpingo-oophorectomy (BSO) History of cystoscopy History of laparoscopy (~2009) History of lithotripsy History of removal of calculus of renal pelvis through percutaneous nephrostomy (~2013) Hx of bilateral mastectomy (~08/19/22) Family History Other Unknown family medical history Social History Household Members: Spouse Housing: House Alcohol intake: current Alcohol intake frequency: holidays/special occasions only Patient Tobacco Use Status: Former Tobacco user Quit Date: 1999 Years Smoked: 10 e-Cigarette/Vaping Use: Never Used service: No Current occupational status: employed 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 Cognitive needs: No Hearing needs: No Vision needs: Yes Review of Systems Const Reports as per HPI and Reports no additional complaints Musc Reports no additional complaints and Reports as per HPI Skin/Breast Denies lesions Neuro Reports no additional complaints and Reports as per HPI Physical Exam Vital Signs: Last Vital Signs Temp 97.8 F 08/18/23 10:29 Pulse 74 08/18/23 10:29 BP 124/78 08/18/23 10:29 Pulse Ox 98 08/18/23 10:29 BMI result Body Mass Index 27.7 Const General: cooperative, comfortable and no acute distress Orientation/consciousness: patient oriented x3 Neuro General: patient oriented x3 Extrem Right upper extremity: normal capillary refill (Skin intact, no laceration) and Extremity exam: right hand (Tenderness and small amount of ecchymosis over the PIP of the 3rd and 4th d) Details: normal capillary refill, neuromotor exam abnormal (Unable to fully extend 5th digit at PIP and DIP), abnormal ROM of finger and ecchymosis (Developing on the pad of the 5th digit with exquisite tenderness to the DIP) Results Reviewed Results Reviewed: X-rays of the hand with attention to 3rd 4th and 5th fingers contemporaneously reviewed by me without evidence of fracture or dislocation. Assessment & Plan Assessment & Plan (1) Crushing injury of finger of right hand: Code(s): S67.10XA - Crushing injury of unspecified finger(s), initial encounter (2) Other injury of extensor muscle, fascia and tendon of other finger at wrist and hand level, initial encounter: Code(s): S66.398A - Other injury of extensor muscle, fascia and tendon of other finger at wrist and hand level, initial encounter Plan: Splinted 5th digit in a straight metallic questions splint. Advised passive range of motion. She can wean out of splint when she can actively extend 5th digit fully. I have placed an ortho consult to follow up to ensure full recovery. Rx for 800 mg ibuprofen t.i.d.. Rest ice elevate as much as possible. Orders: Referrals Orthopedics Referral S66.398A - Other injury of extensor muscle, fascia and tendon of other finger at wrist and hand level, initial encounter Medications: New ibuprofen 800 mg PO TID PRN 45 tabs 0RF pain Coding Level of Care Code Est Pt Level 4 (63914) Diagnoses Crushing injury of finger of right hand S67.10XA Other injury of extensor muscle, fascia and tendon of other finger at wrist and hand level, initial encounter S66.398A
== END 2023-08-18 11:17 | disposition home or self-care (01) ==
PROVIDERS: PCP Internal Medicine; Visit Provider Physician Assistant
DX: S67.10XA Crushing injury of unspecified finger(s), initial encounter (principal); S66.39 Other injury of extensor muscle, fascia and tendon of other and unspecified finger at wrist and hand level
CPT/HCPCS: 99214

== ENCOUNTER 2023-08-18 10:57 | Outpatient (REF) | payer OTHER, SELFPAY ==
--- NOTE | ~2023-08-18 | XR_ITS ---
EXAMINATION: XR HAND, RIGHT CLINICAL INFORMATION: Crush injury. COMPARISON: None available. TECHNIQUE: PA, lateral, and oblique views of the right hand. FINDINGS: No acute fractures or subluxation. Negative ulnar variance with moderate joint space narrowing and subcortical sclerosis of the radiocarpal articulation. No osseous erosions. No abnormal soft tissue calcifications. No unexpected radiopaque foreign bodies. XR/XR hand RT min 3V IMPRESSION: 1. No acute fractures or subluxation. 2. 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
== END 2023-08-18 10:58 | disposition home or self-care (01) ==
LOC: HO.HMGCX 10:57
PROVIDERS: PCP Internal Medicine; Visit Provider Physician Assistant
DX: S67.10XA Crushing injury of unspecified finger(s), initial encounter (principal)
CPT/HCPCS: 73130

== ENCOUNTER 2023-09-03 13:30 | Outpatient (AMB) | payer OTHER, SELFPAY ==
--- NOTE | 2023-09-03 13:47 | MHC.OFFVIS ---
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 Patient reports that she slammed her fingers in the truck door. She presented to [facility] walk in clinic that same day where xrays were taken. Currently having tenderness and constant pain in the tip of her SF. Denies numbness or tingling. 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 She was seen at walk-in clinic the same day where x-rays were performed. She states she has constant pain and tenderness in the tip of her small finger. Her pain is aggravated with typing. She denies any numbness or tingling. [facility] Medical History (Updated 09/03/23 @ 14:36 by Yolanda Weaver PA-C) Arthralgia Vitamin D deficiency 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 of left breast, stage 1 (~05/2022) Hx of deep venous thrombosis Adopted Ileitis Right flank pain Diffuse abdominal pain Kidney stone Surgical History (Updated 09/03/23 @ 13:54 by SALAZAR Cornell) History of bilateral salpingo-oophorectomy (BSO) Hx of bilateral mastectomy (~08/19/22) History of cystoscopy History of lithotripsy H/O esophagogastroduodenoscopy H/O colonoscopy (~05/22/21) History of laparoscopy (~2009) History of removal of calculus of renal pelvis through percutaneous nephrostomy (~2013) Family History Other Unknown family medical history Social History (Updated 09/03/23 @ 13:54 by SALAZAR Cornell) Household Members: Spouse Housing: House Alcohol intake: current Alcohol intake frequency: holidays/special occasions only Patient Tobacco Use Status: Former Tobacco user Quit Date: 1999 Smoked: 10 e-Cigarette/Vaping Use: Never Used service: No Current occupational status: unemployed Current occupation: right hand dominant Cognitive needs: No Hearing needs: No Vision needs: Yes Review of Systems Const All systems reviewed & are unremarkable except as noted in HPI and below Physical Exam Vital Signs: BMI result Body Mass Index 27.7 Const General: cooperative, healthy appearing, comfortable, no acute distress, well developed and alert Orientation/consciousness: patient oriented x3 HEENT Head: Yes normal to inspection, Yes normocephalic and Yes atraumatic Eyes General: appearance normal, both eyes and all related structures Resp Effort & Inspection: normal respiratory effort and able to speak in complete sentences Cardio Rate: regular rate Peripheral pulses: Peripheral pulses 2+ throughout GI Palpation (GI): Soft to palpation Skin Lesions: no lesions Rashes: no rashes Neuro General: patient oriented x3 Extrem Other: Right small finger: Skin is intact. There is no open wound or laceration. No redness or swelling. She has very mild tenderness to palpation at the distal aspect of her finger. She can fully extend and flex the digit. NVI. Results Reviewed Results Reviewed: xrays of the left hand obtained on 08/18/23 are negative for acute fractures Assessment & Plan Assessment & Plan (1) Finger pain, left: Code(s): M79.645 - Pain in left finger(s) Plan She will continue with conservative measures maintaining her ROM, increasing activity as tolerated and she will me back if symptoms persist or worsen, otherwise as needed. Patient Instructions: Scribed for Yolanda Weaver PA-C, by Carlo Mao medical staff assistant, on 09/03/2023 at 1:30 PM EST. IYolanda PA-C, have personally reviewed and agree with the information entered by the scribe. Coding Level of Care Code New Pt Level 3 (01875) Diagnoses Finger pain, left M79.645
[2023-09-03 13:55] VITALS: BMI 27.7
== END 2023-09-03 14:23 | disposition home or self-care (01) ==
PROVIDERS: PCP Internal Medicine; Visit Provider Physician Assistant
DX: M79.645 Pain in left finger(s) (principal)
CPT/HCPCS: 99203; 99213

== ENCOUNTER 2023-09-03 13:30 | Outpatient (REF) | payer OTHER, SELFPAY ==
--- NOTE | ~2023-09-03 | XR_ITS ---
EXAMINATION: XR RIBS, RIGHT CLINICAL INFORMATION: Rib fracture. COMPARISON: Prior radiographs, most recently 06/17/2023. TECHNIQUE: 3 views of the right ribs were obtained. FINDINGS: Lungs are clear. No consolidation, pneumothorax, or pleural effusion. The cardiomediastinal silhouette and pulmonary vasculature are normal. Healing fractures are redemonstrated of the anterolateral aspect of the right seventh and eighth ribs. These fractures show adjacent periosteal callus. No new fracture or dislocation is seen. Bilateral breast tissue group activities aide implants are noted. XR/XR ribs RT min 3V w CXR1V IMPRESSION: Healing fractures are redemonstrated of the right seventh and eighth ribs
== END 2023-09-03 13:31 | disposition home or self-care (01) ==
LOC: HO.XRAY 13:30
PROVIDERS: PCP Internal Medicine; Visit Provider Internal Medicine
DX: M79.644 Pain in right finger(s) (principal)
CPT/HCPCS: 71101

== ENCOUNTER → 2023-09-05 15:22 | Outpatient (BNVA) | payer SELFPAY | PROVIDERS: PCP Internal Medicine; Visit Provider Physician Assistant | DX: Z02.79 Encounter for issue of other medical certificate (principal) ==

== ENCOUNTER 2023-09-05 16:44 | Outpatient (AMB) | payer OTHER, SELFPAY ==
[2023-09-05 16:47] VITALS: BP 110/64; PULSE 72; O2SAT 98; BMI 27.7
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
== END 2023-09-05 17:21 | disposition home or self-care (01) ==
PROVIDERS: PCP Internal Medicine; Visit Provider Internal Medicine
DX: S22.31XD Fracture of one rib, right side, subsequent encounter for fracture with routine healing (principal); V89.2XXD Person injured in unspecified motor-vehicle accident, traffic, subsequent encounter
CPT/HCPCS: 99213

== ENCOUNTER 2023-09-11 12:00 | Outpatient (RCR) | payer OTHER, SELFPAY ==
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
--- NOTE | 2023-11-20 15:58 | MHC.PT.DC ---
[facility] [place] Office [place] Office [place] Office [address] Greg Ivan [address] [phone] F: [phone] F: [phone] F: [phone] F: [phone] Physical Therapy Discharge Report Diagnosis: Fracture of one rib, right side, subsequent encounter for fracture with routine healing Dorsalgia, unspecified Low back pain, unspecified Date of Surgery: Date of Evaluation: 08/12/23 Date of Discharge: 11/20/23 Treatments to Date: 7 Cancellations to Date: No Shows to Date: Discharge Status: Achieved Goals Improved Function Independent with [facility] Discharge Summary: Pt was seen for skilled PT from 08/12/23-09/11/23. Her last attended appointment was 09/11/23. She met her STGs and her LTGs. She was I with [facility]. She was discharged to [facility] on 09/11/23 Electronically signed by: Kelli Major, PT, DPT Please sign and return to therapist. Thank you for your referral.
== END 2023-11-20 15:58 | disposition home or self-care (01) ==
LOC: HO.PT 12:00
PROVIDERS: PCP Internal Medicine; Visit Provider Internal Medicine
DX: S22.31XD Fracture of one rib, right side, subsequent encounter for fracture with routine healing (principal); M54.50 Low back pain, unspecified
CPT/HCPCS: 97110; 97162; 97530

== ENCOUNTER 2023-10-01 12:33 | Outpatient (REF) | payer OTHER, SELFPAY ==
--- NOTE | ~2023-10-01 | US_ITS ---
EXAMINATION: US RETROPERITONEAL LIMITED (RENAL ONLY) CLINICAL INFORMATION: Hematuria, unspecified. Patient brought lab report from [facility] showing positive RBC in urine and advised to see PCP about this; reports no acute urinary symptoms-will send for renal ultrasound for evaluation. COMPARISON: CT abdomen and pelvis with contrast 07/24/2022. Renal ultrasound 02/07/2015 and 07/14/2014. TECHNIQUE: Real-time imaging of the kidneys. FINDINGS: RIGHT KIDNEY: 10.0 x 3.7 x 4.7 cm (SAG x AP x TRV). The kidney is normal in size, contour, and echogenicity. Renal cortical thickness is normal. No calculi or focal parenchymal lesions. No hydronephrosis. LEFT KIDNEY: 11.4 x 5.0 x 5.2 cm (SAG x AP x TRV). The kidney is normal in size, contour, and echogenicity. Renal cortical thickness is normal. No calculi or focal parenchymal lesions. No hydronephrosis. US/US renal BI IMPRESSION: Normal renal ultrasound.
== END 2023-10-01 12:34 | disposition home or self-care (01) ==
LOC: HO.US 12:33
PROVIDERS: PCP Internal Medicine; Visit Provider Internal Medicine
DX: R31.9 Hematuria, unspecified (principal)
CPT/HCPCS: 76775

== ENCOUNTER 2023-12-10 15:07 | Outpatient (AMB) | payer OTHER, SELFPAY ==
[2023-12-10 15:08] VITALS: BP 122/84; PULSE 74; O2SAT 99; BMI 28.2
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
== END 2023-12-10 16:18 | disposition home or self-care (01) ==
PROVIDERS: PCP Internal Medicine; Visit Provider Internal Medicine
DX: S22.31XD Fracture of one rib, right side, subsequent encounter for fracture with routine healing (principal); V89.2XXD Person injured in unspecified motor-vehicle accident, traffic, subsequent encounter
CPT/HCPCS: 99213

== ENCOUNTER 2024-09-16 14:38 | Outpatient (AMB) | payer OTHER, SELFPAY ==
--- NOTE | 2024-09-16 14:41 | MHC.OFFVIS ---
Intake Visit Reasons: IBS follow up Intake Note: Patient follow up for abdominal pain Patient cc: abdominal pain /bloating on and off, and acid reflex with burning sensation, she did not do the lab ordered from last visit. Behavioral Health Therapist Required: No Allergies Sulfa (Sulfonamide Antibiotics) [SULFA (SULFONAMIDE ANTIBIOTICS)] Allergy (Intermediate, Verified 12/10/23 15:29) ITCHING, pruritus Medication List - Last Reconciled 09/16/24 by Trudy Baltazar MD anastrozole 1 mg PO DAILY duloxetine 30 mg PO DAILY ibuprofen 800 mg PO TID PRN mesalamine 2.4 grams (2 x 1.2 gram) PO DAILY 90 days zoledronic acid 4 mg IV [id number] HPI HPI IBS follow up: Details: Telemedicine visit for this 53-year-old female for FU of diverticulitis and ileitis. 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 Had repeat surgery due to infection. She has been seen at the Genetic Clinic at [facility] and advised screening for Ovarian and Pancreatic CA (Referred to Dr Peng at [facility] for pancreatic cancer screening)Pt has a hx of endometriosis, gallstones, kidney stones and questionable history of atrial flutter TODAY'S VISIT: Patient cc: abdominal pain /bloating on and off, and acid reflex with burning sensation, she did not do the lab ordered from last visit. Complains of lower abdominal pain - on and off for the past few months Last episode was on 09/11/24 - lasted all day Feels like a cross between menstrual cramps and a pulled muscle No association with specific foods Can be at least 1-2 times a month and sometimes more frequent and lasts for a few hours Pain is different from past episodes of diverticulitis Pain improves when she sits down and can come back when she stands up and sometimes it does'nt come back Denies fever, nauseaor vominting, frequent sweating due to hot flahes Stopped taking calcium and vitamin D and constipation has resolved Has a BM daily and denies diarrhea Last Zomata infusion in Nov, 2024 PAST VISITS: Always constipated due to multiple medications. Has a BM once every 3 days Taking colace 3 times a day and trying to use the Miralax Takes 3 days for Miralax to work. Has a weird feeling in her intestines - ? burning feeling. Abd CT results reviewed Denies recurrent abdominal pain. Has noted minor flare ups - starts with constipation, lower abdominal pain. Pain resolves once she is able to have a BM. Taking Pentasa to 2 capsules (1 gram) TID and increased to QID during episodes of abdominal pain with improvement.? Takes Miralax prn and advised to take it daily when she has constipation. I have my moment when I do not feel very good Had shooting pains in the lower abdomen - front lower area in the same spot? - resolves in 5 or 10 min. Comes on randomly without clear precipitating factors. Can come on even if she had'nt eaten anything. Unclear if abdominal pain is related to endometriosis. BM are normal since she has been taking the mesalamine three times a day. 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 On most days she notes LLQ pain which is usually always there - some days its worse Worse when she has occasional constipation. 2 months ago she had pea soup and was in terrible pain x 2 weeksNormally takes Pentasa twice a day. Increased Pentasa to 3 to 4 times a day and feels it helps Continuing to take the probiotics Avoiding nuts, popcorn and sesame seeds. Denies fever, chills or sweating Notes pain and gas if she does not eat for a long time. 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 Pain resolved after she took antibiotics in mid June. Had lower abdominal pain when she woke up on Thinks pain started after she had a vegetable stir huber with sesame seeds the night before. Pain is not as bad and feels a little better Has been eating a lot of yogurt. Took some Miralax yesterday since she did not have a BM yesterday. Notes some pain when she sits down - had pain while walking yesterday. Has good days and bad days. Notes bloating and stabbing pain once in a while when she is constipated Pain is random and unable to identifywhat triggers the pain. Eating salads almost every day and avoiding gluten since it aggravates the endometriosis. Takes Ibuprofen occasionally and has not taken it in a long time - over a month ago. Takes 1/2 800 mg tablet less than once a month. Episode of diverticulitis in Dec and resolved after a week with antibitoics. Noted intermittent stabbing pain since the past few weeks which resolved after a BM upper abdominal pain became worse and notes radiating to the back Pain is stabbing and constant and 8/10 in intensity No change in pain when she eats - once it felt worse after eating for a little Diagnosed with IBS with diarrhea a few yrs ago when she had post prandial diarrhea - slowly resolved Denies fever, chills heartburn, dysphagia, nausea, vomiting, change in appetite or weight. Denies recent change in bowel habits, constipation, diarrhea, black stools or rectal bleeding. Patient denies major cardiac or pulmonary problems, loud snoring or sleep apnea Denies problems with anesthesia in the past. Denies being on chronic anticoagulation. Denies mouth ulcers, skin rash or joint pains Past hx of a facial rash with itching - dominguez was negative for Lupus. Family history not known since she is?adopted IMAGING STUDIES:? 07/24/[address] SCAN SHOWED: GASTROINTESTINAL TRACT: There is diverticulosis of the colon. There is a stool in the distal colon questionable for mild constipation. The terminal ileum is slightly distended measuring up to 1.9 cm. This demonstrates slight irregular or tethered course and wall irregularity. No wall thickening or enhancement to suggest acute ileitis is seen. No stricture or evidence of obstruction is seen. The small and large bowel is otherwise normal. The appendix is normal. The stomach is normal. 05/03/[address] scan showed 1. Suspect mild ileitis, approximately 15 cm in length. No proximalobstruction. 2. Normal appendix. No diverticulitis. No ascites or fluid collection. 3. Scattered hepatic cysts again noted. 4. Probable punctate gallstone. No gallbladder wall thickening orductal dilatation. ENDOSCOPIC STUDIES:? 05/22/21 COLONOSCOPY SHOWED: Terminal Ileum: Distal 15 cms was examined and showed edema, erythema with luminal narrowing and scattered 4-5 mm ulcers - biopsies were obtained Impression and Post Procedure Diagnosis: No polyps were detected Random biopsies were obtained pelvic TI, right and left colon to check for IBD Moderate diverticulosis seen in the left colon Small hemorrhoids on retroflexed exam. Plan:? Repeat Colonoscopy in 5 years if biopsies are normal. Above findings were reviewed with the patient and? diverticulosis handouts were given in the discharge area BIOPSIES SHOWED: A.? Terminal ileum, biopsy:? Actively inflamed ileocolonic mucosa; no fully developed chronic injury seen. B.? Colon, right, biopsy:? Colonic mucosa within normal limits. C.? Colon, left, biopsy:? Colonic mucosa within normal limits. COMMENT:? The differential diagnosis for active inflammation in the terminal ileum in this case includes incipient inflammatory bowel disease, infection, drugs (e.g. NSAIDs) and other immune mediated processes.? No chronic inflammatory change is seen.? Please correlate with clinical history. [facility] Medical History (Updated 09/16/24 @ 15:47 by Trudy Baltazar MD) Arthralgia Vitamin D deficiency 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 of left breast, stage 1 (~05/2022) Hx of deep venous thrombosis Adopted Ileitis Kidney stone Surgical History Hx of breast reconstruction (~11/05/23) History of bilateral salpingo-oophorectomy (BSO) Hx of bilateral mastectomy (~08/19/22) History of cystoscopy History of lithotripsy H/O esophagogastroduodenoscopy H/O colonoscopy (~05/22/21) History of laparoscopy (~2009) History of removal of calculus of renal pelvis through percutaneous nephrostomy (~2013) Family History Other Unknown family medical history Social History Household Members: Spouse Housing: House Alcohol intake: current Alcohol intake frequency: holidays/special occasions only Patient Tobacco Use Status: Former Tobacco user Years Smoked: 10 e-Cigarette/Vaping Use: Never Used service: No Current occupational status: unemployed Current occupation: right hand dominant Cognitive needs: No Hearing needs: No Vision needs: Yes Review of Systems Const All systems reviewed & are unremarkable except as noted in HPI and below Telehealth Telehealth Telehealth Platform: Telephone Location of provider rendering services: practice address Location of patient: address on file Patient Identification confirmed using: Name, : Yes Telehealth method: voice only Patient verbally consented to treatment: Yes Patient verbally consented to billing insurance company: Yes Patient informed of any privacy concerns related to visit: Yes Minutes spent on Phone/Video with Pt.: 20 Assessment & Plan Assessment & Plan (1) Abdominal pain: Code(s): R10.9 - Unspecified abdominal pain Category: Medical (2) Ileitis: Code(s): K52.9 - Noninfective gastroenteritis and colitis, unspecified Category: Medical (3) Diverticulitis: Code(s): K57.92 - Diverticulitis of intestine, part unspecified, without perforation or abscess without bleeding Category: Medical (4) Nausea: Code(s): R11.0 - Nausea Category: Medical (5) Drug induced constipation: Code(s): K59.03 - Drug induced constipation Category: Medical (6) Vitamin D deficiency: Code(s): E55.9 - Vitamin D deficiency, unspecified Category: Medical (7) Abdominal pain: Code(s): R10.9 - Unspecified abdominal pain Category: Medical Plan 53 YF with worsening upper abdominal pain radiating to the back - improving slowly after she started taking antibiotics Abd CT scan showed ileitis - possibly related to bacterial gastroenteritis versus Crohn's disease Episode of diverticulitis in Dec, 2020 (confirmed on CT scan) and resolved with antibiotic treatment. Further evaluation with labs showed an elevated fecal calprotectin of 148 and IBD serologies were normal. Colonoscopy showed moderate left sided diverticulosis and edema, erythema with luminal narrowing and scattered 4-5 mm ulcers in the TI - biopsies were obtained TI bx (reviewed with pathology) revealed actively inflamed ileocolonic mucosa; no fully developed chronic injury seen. Left sided abdominal pain possibly due to painful diverticular disease versus kidney stones versus endometriosis. Pt was advised to increase Pentasa to 2 capsules (1 gram) TID with improvement in abdominal pain.? 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 She has been seen at the Genetic Clinic at [facility] and advised screening for Ovarian and Pancreatic CA (Referred to Dr Peng at [facility] for pancreatic cancer screening). 01/10/23 Always constipated due to multiple medications. Has a BM once every 3 days Taking colace 3 times a day and trying to use the Miralax Pt was advised to take Senna once daily for constipation 09/16/24 Pt complains of intermittent lower abdominal pain Advised labs and CT scan Pt is on anastrozole and abd pain reported as a side effect in 7-9% of patients. Follow-up appointment in 4 - 5 months - scheduled 02/11/24 Orders: Orders Complete Blood Count Auto Diff Today R10.9 - Unspecified abdominal pain Comprehensive Met. Panel Today R10.9 - Unspecified abdominal pain C Reactive Protein Today R10.9 - Unspecified abdominal pain Lipase Today R10.9 - Unspecified abdominal pain Calprotectin, Fecal Today R10.9 - Unspecified abdominal pain CT abdomen pelvis w IV con Today K52.9 - Noninfective gastroenteritis and colitis, unspecified, R10.9 - Unspecified abdominal pain Coding Level of Care Code Tele Est Pt Level 4 (21075) Diagnoses Abdominal pain R10.9 Ileitis K52.9 Diverticulitis K57.92 Nausea R11.0 Drug induced constipation K59.03 Vitamin D deficiency E55.9 Time Spent (min) 20
== END 2024-09-16 15:49 | disposition home or self-care (01) ==
LOC: HO.HGI 14:38
PROVIDERS: PCP Internal Medicine; Visit Provider Internal Medicine Gastroenterology
DX: R10.9 Unspecified abdominal pain (principal); K52.9 Noninfective gastroenteritis and colitis, unspecified; K57.92 Diverticulitis of intestine, part unspecified, without perforation or abscess without bleeding; R11.0 Nausea; K59.03 Drug induced constipation; E55.9 Vitamin D deficiency, unspecified
CPT/HCPCS: 99214

== ENCOUNTER → 2024-09-16 14:38 | Outpatient (BNVA) | payer OTHER, SELFPAY | PROVIDERS: PCP Internal Medicine; Visit Provider Internal Medicine Gastroenterology ==

== ENCOUNTER 2024-10-05 12:40 | Outpatient (REF) | payer OTHER, SELFPAY ==
[2024-10-05 13:48] LABS: MANUAL DIFF FLAG NO
[2024-10-05 14:33] LABS: Basophils Percent Auto 0.8 % (0-2); Eosinophils Absolute Auto 0.1 X10*3/uL (0.0-0.4); Eosinophils Percent Auto 2.3 % (0-4); Hematocrit 38.3 % (37.0-47.0); Hemoglobin 12.5 g/dl (12.0-16.0); Imm Gran Abs Auto 0.01 X10*3/uL (0.00-0.03); Imm Gran Pct Auto 0.2 % (0.0-0.4); Lymphocytes Absolute Auto 1.8 X10*3/uL (1.2-4.9); Mean Corpuscular HGB Conc 32.6 g/dl (31.0-35.0); Mean Corpuscular Hemoglobin 28.3 pg (27.0-33.0); Mean Corpuscular Volume 86.7 fL (80.0-98.0); Mean Platelet Volume 10.4 fL (9.4-12.3); Monocytes Absolute Auto 0.4 X10*3/uL (0.1-1.2); Neutrophils Absolute Auto 2.7 x10*3/uL (2.0-8.3); Neutrophils Percent Auto 53.7 % (45-73); Platelet Count 202 X10*3/uL (160-400); Red Blood Count 4.42 X10*6/uL (4.20-5.50); Red Cell Distribution Width 12.6 % (11.0-16.0); White Blood Count 5.1 X10*3/uL (4.8-10.8)
[2024-10-05 15:20] LABS: Alanine Aminotransferase 37 U/L (0-31); Albumin Level 4.2 g/dL (3.5-5.0); Alkaline Phosphatase 64 U/L (39-117); Anion Gap 13 (12-20); Aspartate Amino Transferase 29 U/L (5-31); Bilirubin Total 0.4 mg/dL (0.0-1.0); Blood Urea Nitrogen 18 mg/dL (9-16); C Reactive Protein 0.36 mg/dL (< or = 0.50); Calcium 9.8 mg/dL (8.4-10.2); Carbon Dioxide 27 mmol/L (22-29); Chloride 105 mmol/L (96-108); Estimated Glomerular Filt Rate > 60; Glucose Random 84 mg/dL (60-115); Lipase 18 U/L (8-78); Potassium 3.8 mmol/L (3.3-5.1); Sodium 141 mmol/L (135-145); Total Protein 7.2 g/dL (6.5-8.0)
== END 2024-10-05 12:41 | disposition home or self-care (01) ==
LOC: HO.LAB 12:40
PROVIDERS: PCP Internal Medicine; Visit Provider Internal Medicine Gastroenterology
DX: R10.9 Unspecified abdominal pain (principal)
CPT/HCPCS: 36415; 80053; 83690; 85025; 86140

== ENCOUNTER 2025-02-08 14:29 | Outpatient (REF) | payer OTHER, SELFPAY ==
--- NOTE | ~2025-02-08 | MM_ITS ---
EXAMINATION: DXA BONE DENSITY AXIAL HISTORY: Estrogen deficiency TECHNIQUE: [employer] Dual energy absorptiometry (DEXA) of the lumbar spine, total left hip, and femoral neck was performed. COMPARISON: There are no prior studies for comparison. FINDINGS: The bone mineral density of the lumbar spine is 1.243 with a T-score of 0.5, and a Z-score of 0.4. The bone mineral density of the left total hip is 1.017 with a T-score of 0.1, and a Z-score of 0.1. The bone mineral density of the left femoral neck is 0.875 with a T-score of -1.2, and a Z-score of -0.8. FRACTURE RISK: The FRAX index suggests a risk of major osteoporotic fracture of 4.8%, and of hip fracture 0.3%. MM/XR DEXA axial skeleton IMPRESSION: Based on bone mineral density, and according to World Health Organization (WHO) criteria, the diagnosis is consistent with osteopenia. All bone density values are in grams per centimeter squared (g/cm2). Statistically, 68% of repeat scans fall within 1 SD (+/- 0.010 g/cm2 for AP spine L1-L4) and 1 SD (+/- 0.012 g/cm2 for femur total) FRAX is a trademark of the [employer]'s [place] for Metabolic Bone Disease, a World Health Organization (WHO) Collaborating Center. Electronically signed by: Ten Mora MD 02/08/2025 03:13 PM EDT
--- OUTSIDE RECORDS SUMMARY | 2025-02-08 17:15 | XMS_ITS | Clinical Summary ---
Author Organization [facility] Facility Address [address] [address] Care Team Providers Care Biometric Fingerprinting Technician Name Role Phone Faheem Troy MD Primary Care Provider [phone] Allergies Active Allergy Reactions Criticality Noted Date Comments Sulfa Antibiotics 09/20/2022 Medications MESALAMINE PO Take 1,000 mg by mouth 4 times a day Active ibuprofen (ADVIL,MOTRIN) 800 MG tablet Take 800 mg by mouth every 6 (six) hours if needed for mild pain Active clindamycin (CLEOCIN) 150 MG capsule Take 150 mg by mouth in the morning and 150 mg in the evening and 150 mg before bedtime. Active oxyCODONE (OXY-IR) 5 MG immediate release capsule Take 5 mg by mouth every 4 (four) hours if needed for moderate pain Active gabapentin (NEURONTIN) 100 MG capsule Take 100 mg by mouth in the morning and 100 mg in the evening and 100 mg before bedtime. Active Enoxaparin Sodium 40 MG/0.4ML solution prefilled syringe Inject as directed Active cephalexin (KEFLEX) 500 MG capsule Take 500 mg by mouth in the morning and 500 mg at noon and 500 mg in the evening and 500 mg before bedtime. Active Active Problems Problem Noted Date Diagnosed Date Cancer of left female breast 09/20/2022 Crohn's disease 09/20/2022 Personal history of kidney stones 09/20/2022 Social History Tobacco Use Types Packs/Day Years Used Date Smoking Tobacco: Never Assessed Comments Unknown Sex and Gender Information Value Date Recorded Sex Assigned at Not on file Legal Sex Female 3:04 PM EDT Gender Identity Not on file Sexual Orientation Not on file Plan of Treatment Health Maintenance Due Date Last Done Comments Breast Cancer Screening 1972 Pneumococcal Vaccine: Pediat rics (0 to 5 Years) and At-Risk Patients (6 to 64 Years) (1 of 2 - PCV) 1978 Hepatitis B Vaccine (1 of 3 - 19+ 3-dose series) 10/06 Colorectal Cancer Screening: Annual FOBT 2021 Colorectal Cancer Screening: Colonoscopy 2021 Colorectal Cancer Screening: Sigmoidoscopy 2021 Influenza Vaccine (#1) 2024 Insurance [facility] Care Teams Biometric Fingerprinting Technician Relationship Specialty Start Date End Date Faheem Troy MD [address] [place] [place] [address] [address] [place] [address] [id number] PCP - General Internal Medicine 09/19/22
== END 2025-02-08 14:30 | disposition home or self-care (01) ==
LOC: HO.MAMMO 14:29
PROVIDERS: PCP Internal Medicine; Visit Provider Internal Medicine Hematology
DX: Z13.820 Encounter for screening for osteoporosis (principal); Z79.811 Long term (current) use of aromatase inhibitors; Z85.3 Personal history of malignant neoplasm of breast; E28.39 Other primary ovarian failure
CPT/HCPCS: 77080

== ENCOUNTER → 2025-02-08 14:30 | Outpatient (BNV) | payer OTHER, SELFPAY | PROVIDERS: PCP Internal Medicine; Visit Provider Radiology Diagnostic Radiology | DX: E28.39 Other primary ovarian failure (principal) | CPT/HCPCS: 77080 ==

== ENCOUNTER 2025-05-29 13:38 | Emergency (ER) | payer OTHER, SELFPAY ==
--- NOTE | ~2025-05-29 | CT_ITS ---
CLINICAL HISTORY: LLQ abd pain, nausea, h o diverticulitis CT abdomen and pelvis with IV contrast. COMPARISON: CT abdomen and pelvis dated 07/24/22 at 08:09 EDT FINDINGS: Partially visualized bilateral breast implants. Multiple well-defined hypoattenuating lesions present within the liver measuring up to 5.0 cm in the left lobe consistent with hepatic cysts and stable from prior imaging. Normal gallbladder. Normal spleen. Normal pancreas. Normal adrenal glands. Symmetric renal enhancement. Multiple well-defined hypoattenuating lesions present within the kidneys measuring up to 0.6 cm, too small to further characterize but likely representing renal cysts. No hydronephrosis. There are inflammatory changes along the mid sigmoid colon in the vicinity of multiple diverticuli. No evidence of abscess or free intraperitoneal air. Mild to moderate colonic stool burden. No bowel obstruction. Mild edema within fat along the mesenteric root with several prominent internal lymph nodes suggestive of mesenteric panniculitis, similar to prior imaging. Normal abdominal aorta. Urinary bladder is unremarkable given degree of distention. No adnexal mass. Mild lower lumbar spondylosis. No acute fracture or suspicious bone lesion. IMPRESSION: 1. Mid sigmoid colon diverticulitis. No evidence of abscess or free intraperitoneal air. This document has been electronically signed by: Martell Díaz MD on 05/29/2025 16:53:55
[2025-05-29 13:40] VITALS: BP 106/70; PULSE 95; RESP 16; TEMP 36.6; O2SAT 95; BMI 25.8
--- NOTE | 2025-05-29 13:41 | ED.GENADULT ---
HPI - General Adult General Chief complaint: Abdominal Pain Stated complaint: abd pain Time Seen by Provider: 05/29/25 14:13 Source: patient Limitations: no limitations History of Present Illness HPI narrative: 54-year-old female who has a history of breast cancer, DVT, recurrent diverticulitis followed by Dr. Baltazar presents for evaluation of lower abdominal pain. According to the patient approximately 10 days ago she began to have worsening lower abdominal pain which was consistent with previous episodes of diverticulitis. She contacted Dr. Baltazar and the patient was prescribed a course of Augmentin. Patient states she completed the course however upon completing the medications she states that the pain returned. She reports that it is diffuse across her lower abdomen, sharp in nature and again consistent with previous episodes of diverticulitis. She does also report urinary frequency but no dysuria. No vaginal discharge. She is scheduled for an outpatient CAT scan on June 02. Related Data Home Medications ?Medication ?Instructions ?Recorded ?Confirmed duloxetine 30 mg capsule,delayed 30 mg PO DAILY 02/17/23 09/16/24 release zoledronic acid 4 mg/5 mL 4 mg IV [id number] 02/17/23 09/16/24 intravenous solution anastrozole 1 mg tablet 1 mg PO DAILY 09/16/24 09/16/24 Previous Rx's ?Medication ?Instructions ?Recorded ibuprofen 800 mg tablet 800 mg PO TID PRN pain #45 tabs 08/19/23 mesalamine 1.2 gram tablet,delayed 2.4 g (2 x 1.2 gram) PO DAILY #180 04/06/25 release tabs barium sulfate 2 % (w/v) oral [address] scan #900 mL 05/12/25 suspension (Readi-Cat 2) amoxicillin 500 mg-potassium 1 tab PO TID #21 tabs 05/16/25 clavulanate 125 mg tablet (Augmentin) ciprofloxacin HCl 500 mg tablet 500 mg PO BID 7 days #14 tabs 05/29/25 (Cipro) metronidazole 500 mg tablet 500 mg PO Q8H 7 days #21 tabs 05/29/25 Allergies Allergy/AdvReac Type Severity Reaction Status Date / Time Sulfa (Sulfonamide Allergy Intermediate ITCHING, Verified 05/29/25 13:43 Antibiotics) (SULFA pruritus (SULFONAMIDE ANTIBIOTICS)) Review of Systems Review of Systems: Yes all other systems are reviewed and are negative Respiratory: Respiratory: Denies cough Gastrointestinal: Gastrointestinal: Reports abdominal pain, Denies melena, Denies hematochezia, Denies constipation, Reports nausea and Denies vomiting [facility] Past Medical History Medical History Arthralgia Vitamin D deficiency 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 of left breast, stage 1 (~05/2022) Hx of deep venous thrombosis Adopted Ileitis Kidney stone Surgical History Hx of breast reconstruction (~11/05/23) History of bilateral salpingo-oophorectomy (BSO) Hx of bilateral mastectomy (~08/19/22) History of cystoscopy History of lithotripsy H/O esophagogastroduodenoscopy H/O colonoscopy (~05/22/21) History of laparoscopy (~2009) History of removal of calculus of renal pelvis through percutaneous nephrostomy (~2013) Family History Family History Other Unknown family medical history Social History Social History Household Members: Spouse Housing: House Alcohol intake: current Alcohol intake frequency: holidays/special occasions only Patient Tobacco Use Status: Former Tobacco user Years Smoked: 10 Smoked in Last 30 Days: No e-Cigarette/Vaping Use: Never Used Use of substances other than those prescribed or required for medical reasons: No Advance Directives: No Advance Directives Information Provided: Yes Do you have a plan to hurt others: No Plan Patient : No service: No Current occupational status: unemployed Current occupation: right hand dominant Cognitive needs: No Hearing needs: No Vision needs: Yes Physical Exam ED Vital Signs: Vital Signs - 24 hr 05/29/25 13:40 05/29/25 17:04 Temperature 98 F 98.0 F Pulse Rate 95 87 Respiratory Rate 16 16 Blood Pressure 106/70 120/75 Pulse Oximetry 95 Oxygen Delivery Method Room Air Room Air BMI result Body Mass Index 25.8 Const General: cooperative and alert Resp Auscultation: clear to auscultation bilaterally Cardio Rate: regular rate Rhythm: regular rhythm GI Other: Abdomen is soft. There was no peritoneal signs. Mild left lower quadrant And suprapubic tenderness. no CVAT. Course Course Course Narrative: This is a rapid medical exam performed by Tomas Kearns NP: Additional HPI, ROS, PE not included below will be deferred to primary provider. Patient is a 54-year-old female with history of diverticulitis presenting with complaint of abdominal pain. Dr. Serrano sent Augmentin, symptoms improved, but returned when abx finished. Denies fevers, hematochezia, melena. Plan: labs Reevaluation(s) Reevaluation #1: 5:[address] results returned, mild diverticulitis is now oriented. CT findings reviewed with the patient. She feels comfortable with discharge plan home. I feel that this is reasonable at this time given that the patient is hemodynamically stable, afebrile, no leukocytosis and mild findings on CT and that her pain has been well controlled and that she is not having any nausea or vomiting. We will add antibiotics Cipro and Flagyl which the patient has been on previously and as tolerated without any difficulty. She expresses understanding of all discharge instructions and has no further questions at this time. Patient is comfortable with Tylenol or ibuprofen that she has not home and does not wish to have any other pain medication. She has not had any nausea and denies any antiemetic. Medications Administered Discontinued Medications Generic Name Dose Route Start Last Admin Trade Name Freq PRN Reason Stop Dose Admin Sodium Chloride 1,000 mls @ 999 mls/hr 05/29/25 14:45 05/29/25 16:33 Ns IV 05/29/25 15:45 Infused .Q1H1M RICH Infusion Iohexol 85 ml 05/29/25 15:40 05/29/25 15:41 Iohexol 350 Mg/Ml 100 Ml Infus..Btl IV 05/29/25 15:41 85 ml ONCE ONE Administration Medical Decision Making Medical Decision Making [facility] Narrative: 54-year-old female with approximately 10 day history of abdominal pain, completed course of Augmentin for suspected diverticulitis. Patient without any recent imaging. She has had colonoscopy in the past. Check labs, UA for possible UTI, CT to further evaluate for diverticulitis with potential for abscess or other etiology such as colitis or constipation. Patient is hemodynamically stable. She did have nausea earlier today but that has since resolved. Differential Diagnosis Bowel obstruction Diverticulitis Colitis Constipation UTI Lab Data [facility] Lab Attestation statement: I reviewed the patient's lab results. 05/29/25 14:53 05/29/25 14:53 Labs: Lab Results 05/29/25 05/29/25 Range/Units 14:53 16:00 WBC 8.6 (4.8-10.8) X10*3/uL RBC 4.35 (4.20-5.50) X10*6/uL Hgb 12.5 (12.0-16.0) g/dl Hct 37.0 (37.0-47.0) % MCV 85.1 (80.0-98.0) fL MCH 28.7 (27.0-33.0) pg MCHC 33.8 (31.0-35.0) g/dl RDW 13.2 (11.0-16.0) % Plt Count 187 (160-400) X10*3/uL MPV 10.4 (9.4-12.3) fL Immature Gran % (Auto) 0.1 (0.0-0.4) % Neut % (Auto) 72.3 (45-73) % Lymph % (Auto) 18.9 L (20-40) % [place] % (Auto) 7.9 (2-11) % Eos % (Auto) 0.6 (0-4) % Baso % (Auto) 0.2 (0-2) % Lymph # (Auto) 1.6 (1.2-4.9) X10*3/uL [place] # (Auto) 0.7 (0.1-1.2) X10*3/uL Eos # (Auto) 0.1 (0.0-0.4) X10*3/uL Baso # (Auto) 0.0 (0.0-0.2) X10*3/uL Abs Immat Gran (auto) 0.01 (0.00-0.03) X10*3/uL Absolute Neuts (auto) 6.2 (2.0-8.3) x10*3/uL Absolute Nucleated RBC 0.000 (0.0-0.012) X10*3/uL Nucleated RBC % (auto) 0.0 (0.0-0.2) /100WBC Sodium 139 (135-145) mmol/L Potassium 4.0 (3.3-5.1) mmol/L Chloride 104 (96-108) mmol/L Carbon Dioxide 26 (22-29) mmol/L Anion Gap 13 (12-20) BUN 14 (9-16) mg/dL Creatinine 0.72 (0.5-1.4) mg/dL Estim Creat Clear Calc 96.5 Estimated GFR > 60 Random Glucose 94 (60-115) mg/dL Calcium 9.5 (8.4-10.2) mg/dL Total Bilirubin 0.6 (0.0-1.0) mg/dL AST 23 (5-31) U/L ALT 23 (0-31) U/L Alkaline Phosphatase 63 (39-117) U/L Total Protein 6.8 (6.5-8.0) g/dL Albumin 4.2 (3.5-5.0) g/dL Lipase 16 (8-78) U/L Urine Color Yellow Urine Appearance Clear Urine pH 6.5 (5.0-9.0) Ur Specific [employer] <= 1.005 (1.005-1.025) Urine Protein Negative (Neg-Trace) mg/dL Urine Glucose (UA) Negative (Negative) mg/dL Urine Ketones Trace (Negative) mg/dL Urine Blood Trace H (Negative) Urine Nitrite Negative (Negative) Ur Leukocyte Esterase Negative (Negative) Urine RBC 3-5 H (0-2) /HPF Urine WBC 0-5 (0-5) /HPF Ur Squamous Epith Cells 0-2 (0-2) /HPF Urine Bacteria None Seen (None Seen) Hyaline Casts 0-2 (0-2) /LPF Discharge Plan Discharge Clinical Impression: Diverticulitis Patient Disposition: Home, Self-Care Instructions: Diverticulitis (DC) Additional Instructions: Clear liquids. [place] diet. Gradually advanced. Cipro and Flagyl as directed. Finish all antibiotics. Do not drink alcohol while taking this medication as it will make you severely ill. Follow up with your GI doctor, Dr. Baltazar. Call to schedule to schedule follow up appointment. Follow-up with your primary care provider. Call this week to schedule a follow-up appointment. Return to the emergency department if you have any worsening of symptoms, or any concerns. Get well soon! Prescriptions: New ciprofloxacin HCl [Cipro] 500 mg tablet 500 mg PO BID 7 Days Qty: 14 0RF metronidazole 500 mg tablet 500 mg PO Q8H 7 Days Qty: 21 0RF No Action ibuprofen 800 mg tablet 800 mg PO TID PRN (Reason: pain) Qty: 45 0RF mesalamine 1.2 gram tablet,delayed release (DR/EC) 2.4 g PO DAILY Qty: 180 0RF Readi-Cat 2 2 % (w/v) suspension 450 ml PO ONCE Qty: 900 0RF Rx Instructions: take bottle #[address] scan. Take bottle #2 30-[address] scan amoxicillin-pot clavulanate [Augmentin] 500-125 mg tablet 1 tab PO TID Qty: 21 0RF duloxetine 30 mg capsule,delayed release(DR/EC) 30 mg PO DAILY zoledronic acid 4 mg/5 mL solution 4 mg IV [id number] Rx Instructions: administer over at least 15 mins anastrozole 1 mg tablet 1 mg PO DAILY Referrals: Trudy Baltazar MD [Physician, Gastroenterology] Referral Note: f/u diverticulitis Clinical Impression: Diverticulitis Print Language: Mauritanian
[2025-05-29 14:58] LABS: MANUAL DIFF FLAG NO
[2025-05-29 15:08] LABS: Hematocrit 37.0 % (37.0-47.0); Hemoglobin 12.5 g/dl (12.0-16.0); Imm Gran Abs Auto 0.01 X10*3/uL (0.00-0.03); Imm Gran Pct Auto 0.1 % (0.0-0.4); Lymphocytes Absolute Auto 1.6 X10*3/uL (1.2-4.9); Mean Corpuscular HGB Conc 33.8 g/dl (31.0-35.0); Mean Corpuscular Hemoglobin 28.7 pg (27.0-33.0); Mean Corpuscular Volume 85.1 fL (80.0-98.0); NRBC Abs Auto 0.000 X10*3/uL (0.0-0.012); NRBC Pct Auto 0.0 /100WBC (0.0-0.2); Platelet Count 187 X10*3/uL (160-400); Red Blood Count 4.35 X10*6/uL (4.20-5.50); White Blood Count 8.6 X10*3/uL (4.8-10.8)
[2025-05-29 15:15] LABS: Lipase 16 U/L (8-78)
[2025-05-29 15:20] LABS: Alanine Aminotransferase 23 U/L (0-31); Albumin Level 4.2 g/dL (3.5-5.0); Alkaline Phosphatase 63 U/L (39-117); Anion Gap 13 (12-20); Aspartate Amino Transferase 23 U/L (5-31); Blood Urea Nitrogen 14 mg/dL (9-16); Calcium 9.5 mg/dL (8.4-10.2); Carbon Dioxide 26 mmol/L (22-29); Chloride 104 mmol/L (96-108); Creatinine Clr Calc Pharmacy 96.5; Estimated Glomerular Filt Rate > 60; Potassium 4.0 mmol/L (3.3-5.1); Sodium 139 mmol/L (135-145); Total Protein 6.8 g/dL (6.5-8.0)
[2025-05-29] MEDS: iohexoL 350 MG/ML 100 ML INFUS..BTL 85 ML IV (15:41)
[2025-05-29 16:06] LABS: Appearance Urine Clear; Glucose Urine UA Negative (Negative); PH 6.5 (5.0-9.0); Specific Gravity - Urine <= 1.005 (1.005-1.025); UMIC TRIGGER UACC YES
[2025-05-29 17:04] VITALS: BP 120/75; PULSE 87; RESP 16; TEMP 36.7
[2025-05-29 17:34] VITALS: BP 120/75; PULSE 87; RESP 16; TEMP 36.7
== END 2025-05-29 17:35 | disposition home or self-care (01) ==
PROVIDERS: Physician Assistant; Registered Nurse Emergency; Emergency Provider Emergency Medicine; PCP Internal Medicine
DX: K57.32 Diverticulitis of large intestine without perforation or abscess without bleeding (principal); R11.2 Nausea with vomiting, unspecified; Z79.899 Other long term (current) drug therapy; Z87.891 Personal history of nicotine dependence
CPT/HCPCS: 36415; 74177; 80053; 81001; 83690; 85025; 96360; 96361; 99284; 99285; Q9967

== ENCOUNTER → 2025-05-29 14:32 | Outpatient (BNV) | payer OTHER, SELFPAY | PROVIDERS: Emergency Provider Emergency Medicine; PCP Internal Medicine; Visit Provider Radiology Diagnostic Radiology | DX: K57.32 Diverticulitis of large intestine without perforation or abscess without bleeding (principal) | CPT/HCPCS: 74177 ==

== ENCOUNTER 2025-06-10 07:21 | Outpatient (AMB) | payer OTHER, SELFPAY ==
--- OUTSIDE RECORDS SUMMARY | 2025-06-10 07:23 | XMS_ITS | Encounter Summary ---
Author Organization [facility] Address [address] [address] Phone Care Team Providers Care Fish And Wildlife Technician Name Role Phone Faheem Troy MD Primary Care Provider Un available Self-Referred, Patient Unavailable Unavailab Jaqui Thomas MD Unavailable Angela Engle MD Unavailable [phone] Rufus Herrera MD Unavailable Micaela aLdd RN Unavailable [email or web address] Encounter Details Date Type Department Care Team (Late st Contact Info) Description 02/10/2025 Procedure Pass [facility] Endoscopy Department [address] [place] [id number] Social History Tobacco Use Types Packs/Day Years Used Date Smoking Tobacco: Former Cigarettes 0 11/24/1992 - 11/24/2002 Smokeless Tobacco: Never Comments:Social smoker 1 PAC K PER WEEK FOR 5 YEARS; QUIT 15 YEARS AGO Alcohol Use Standard Drinks/Week Comments Yes 0 (1 standard drink = 0.6 oz pur e alcohol) Education Answer Date Recorded Are you interested in more education? Not on jethro e 03/22/2023 Are you concerned about learning? Not on file 03/22/2023 No 03/22/2023 No 03/22/2023 Digital Access Answer Date Recorded No 04/22/2023 No 04/22/2023 Reliable internet access at home? Not on file 04/22/2023 Device with a working camera? Not on file Intimate Partner Violence Answer Date R ecorded Are you denied basic needs s uch as food, clothing, or medical care? No 02/10/2025 In the past 12 months have y ou been in a relationship with a person who hurts, threatens, or tries to control you? No 02/10/2025 Are you denied basic needs s uch as food, clothing, or medical care? No 02/10/2025 In the past 12 months have y ou been in a relationship with a person who hurts, threatens, or tries to control you? No 02/10/2025 Comments No Sex and Gender Information Value Date Recorded Sex Assigned at Female 09/24/2022 5:39 PM EDT Legal Sex Female 5:08 PM EDT Gender Identity Female 09/24/2022 5:39 PM EDT Sexual Orientation Straight 09/24/2022 5: 39 PM EDT documented as of this encounter Plan of Treatment Upcoming Encounters Date Type Department Care Team (Late st Contact Info) Description 08/09/2025 9:50 AM EDT Blood Draw Laboratory Services, [facility] at [address] [address] Angela Engle MD [address] [place] [phone] [email or web address] 08/09/2025 11:00 AM EDT Office Visit [facility], [facility], [facility] at [address] [address] Angela Engle MD [address] [place] [phone] [email or web address] 08/09/2025 12:00 PM EDT Infusion Infusion Therapy Services South, [facility] at [address] [address] Angela Engle MD [address] [place] [phone] [email or web address] documented as of this encounter Visit Diagnoses Not on filedocumented in this encounter Care Teams Fish And Wildlife Technician Relationship Specialty Start Date End Date Faheem Troy MD PCP - General Internal Medicine 09/24/22 Self-Referred, Patient 09/24/22 [place] [phone] [email or web address] LMR Provider 09/09/17 Angela Engle MD [address] [place] [phone] [email or web address] Medical Oncology 10/03/22 Rufus Herrera MD [address] [place] [address] [place] [address] Hematology and Oncology 10/06/22 Micaela Ladd RN [address] [place] [phone] [email or web address] Primary Infusion Nurse 10/22/22 documented as of this encounter Additional Source Comments The information contained in this document represents components of the legal health record. It is not the complete legal health record.[facility]
--- OUTSIDE RECORDS SUMMARY | 2025-06-10 07:23 | XMS_ITS | Clinical Summary ---
Author Organization [facility] Facility Address [address] [address] Care Team Providers Care Wire Border Assembler Name Role Phone Faheem Troy MD Primary Care Provider [phone] Allergies Active Allergy Reactions Criticality Noted Date [...] Last Done Comments Breast Cancer Screening 1972 Hepatitis B Vaccine (1 of 3 - 19+ 3-dose series) 10/06 Pneumococcal Vaccine: 50+ Years (1 of 2 - PCV) 991 Colorectal Cancer Screening: Annual FOBT 2021 Colorectal Cancer Screening: Colonoscopy 2021 Colorectal Cancer Screening: Sigmoidoscopy 2021 Influenza Vaccine (#1) 2025 Insurance [facility] Care Teams Wire Border Assembler Relationship Specialty Start Date End Date Faheem Troy MD [address] [place] [id number] PCP - General Internal Medicine 09/19/22
--- NOTE | 2025-06-10 07:31 | MHC.OFFVIS ---
Vital Signs 06/10/25 07:34 Height 5 ft 7 in Weight 188 lb BMI 29.4 BP 97/64 Blood Pressure Location Lt brachial Position Sitting Pulse 72 Pulse Oximetry (%) 98 Oxygen Delivery Method Room Air Intake Visit Reasons: Diverticulitis/CT scan results. Intake Note: Patient follow up for Diverticulitis/CT scan results. Patient cc: lower abdominal pain on and off for more than a year, occasional GERD, 3 or 4 weeks she was with diarrhea, denies any other GI issues. Allergies Sulfa (Sulfonamide Antibiotics) (SULFA (SULFONAMIDE ANTIBIOTICS)) Allergy (Intermediate, Verified 06/10/25 07:30) ITCHING, pruritus Medication List - Last Reconciled 06/10/25 by Trudy Baltazar MD anastrozole 1 mg PO DAILY duloxetine 30 mg PO DAILY ibuprofen 800 mg PO TID PRN mesalamine 2.4 grams (2 x 1.2 gram) PO DAILY zoledronic acid 4 mg IV [id number] HPI HPI Diverticulitis/CT scan results.: Details: GI clinic visit for this 54-year-old female with a hx of endometriosis, gallstones, kidney stones and questionable history of atrial flutter here for FU of diverticulitis and ileitis. 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 Had repeat surgery due to infection. She has been seen at the Genetic Clinic at [facility] and advised screening for Ovarian and Pancreatic CA (Referred to Dr Peng at [facility] for pancreatic cancer screening) TODAY'S VISIT: Patient cc: lower abdominal pain on and off for more than a year, occasional GERD, 3 or 4 weeks she was with diarrhea, 05/29/25 Pt was seen at [facility] with abd pain: 10 days ago she began to have worsening lower abdominal pain which was consistent with previous episodes of diverticulitis. She contacted Dr. Baltazar and the patient was prescribed a course of Augmentin. Patient states she completed the course however upon completing the medications she states that the pain returned. She reports that it is diffuse across her lower abdomen, sharp in nature and again consistent with previous episodes of diverticulitis. She does also report urinary frequency but no dysuria Abd CT scan showed: Mid sigmoid colon diverticulitis. No evidence of abscess or free intraperitoneal air. Pt was prescribed Cipro and Flagyl for another 7 days Complains of RLQ pain off and on for a year - unable to identify any precipitating or relieving factors. Can have pain when she wakes up and pain can stay all day and resolve spontaneously. Can go a month or two without pain. Can vary between mild to severe. Always hot due to hot flashes - denies nausea, vomting, fever or chills Pain can go away if she sits or lays down. No change in pain with BM or passage of gas. Sees DR Peng at [facility] and had an EUS on 02/10/2025 at - normal per patient (Has an MRI alternating with EUS every year at [facility]) PAST VISITS: Complains of lower abdominal pain - on and off for the past few months Last episode was on 09/11/24 - lasted all day Feels like a cross between menstrual cramps and a pulled muscle No association with specific foods Can be at least 1-2 times a month and sometimes more frequent and lasts for a few hours Pain is different from past episodes of diverticulitis Pain improves when she sits down and can come back when she stands up and sometimes it does'nt come back Denies fever, nauseaor vominting, frequent sweating due to hot flahes Stopped taking calcium and vitamin D and constipation has resolved Has a BM daily and denies diarrhea Last Zomata infusion in Nov, 2024 PAST VISITS: Always constipated due to multiple medications. Has a BM once every 3 days Taking colace 3 times a day and trying to use the Miralax Takes 3 days for Miralax to work. Has a weird feeling in her intestines - ? burning feeling. Abd CT results reviewed Denies recurrent abdominal pain. Has noted minor flare ups - starts with constipation, lower abdominal pain. Pain resolves once she is able to have a BM. Taking Pentasa to 2 capsules (1 gram) TID and increased to QID during episodes of abdominal pain with improvement.? Takes Miralax prn and advised to take it daily when she has constipation. I have my moment when I do not feel very good Had shooting pains in the lower abdomen - front lower area in the same spot? - resolves in 5 or 10 min. Comes on randomly without clear precipitating factors. Can come on even if she had'nt eaten anything. Unclear if abdominal pain is related to endometriosis. BM are normal since she has been taking the mesalamine three times a day. 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 On most days she notes LLQ pain which is usually always there - some days its worse Worse when she has occasional constipation. 2 months ago she had pea soup and was in terrible pain x 2 weeksNormally takes Pentasa twice a day. Increased Pentasa to 3 to 4 times a day and feels it helps Continuing to take the probiotics Avoiding nuts, popcorn and sesame seeds. Denies fever, chills or sweating Notes pain and gas if she does not eat for a long time. Pt finished her training and is applying for a new job driving a [employer]. Pain resolved after she took antibiotics in mid June. Had lower abdominal pain when she woke up on Thinks pain started after she had a vegetable stir huber with sesame seeds the night before. Pain is not as bad and feels a little better Has been eating a lot of yogurt. Took some Miralax yesterday since she did not have a BM yesterday. Notes some pain when she sits down - had pain while walking yesterday. Has good days and bad days. Notes bloating and stabbing pain once in a while when she is constipated Pain is random and unable to identifywhat triggers the pain. Eating salads almost every day and avoiding gluten since it aggravates the endometriosis. Takes Ibuprofen occasionally and has not taken it in a long time - over a month ago. Takes 1/2 800 mg tablet less than once a month. Episode of diverticulitis in Dec and resolved after a week with antibitoics. Noted intermittent stabbing pain since the past few weeks which resolved after a BM upper abdominal pain became worse and notes radiating to the back Pain is stabbing and constant and 8/10 in intensity No change in pain when she eats - once it felt worse after eating for a little Diagnosed with IBS with diarrhea a few yrs ago when she had post prandial diarrhea - slowly resolved Denies fever, chills heartburn, dysphagia, nausea, vomiting, change in appetite or weight. Denies recent change in bowel habits, constipation, diarrhea, black stools or rectal bleeding. Patient denies major cardiac or pulmonary problems, loud snoring or sleep apnea Denies problems with anesthesia in the past. Denies being on chronic anticoagulation. Denies mouth ulcers, skin rash or joint pains Past hx of a facial rash with itching - dominguez was negative for Lupus. Family history not known since she is?adopted IMAGING STUDIES:? 07/24/[address] SCAN SHOWED: GASTROINTESTINAL TRACT: There is diverticulosis of the colon. There is a stool in the distal colon questionable for mild constipation. The terminal ileum is slightly distended measuring up to 1.9 cm. This demonstrates slight irregular or tethered course and wall irregularity. No wall thickening or enhancement to suggest acute ileitis is seen. No stricture or evidence of obstruction is seen. The small and large bowel is otherwise normal. The appendix is normal. The stomach is normal. 05/03/[address] scan showed 1. Suspect mild ileitis, approximately 15 cm in length. No proximalobstruction. 2. Normal appendix. No diverticulitis. No ascites or fluid collection. 3. Scattered hepatic cysts again noted. 4. Probable punctate gallstone. No gallbladder wall thickening orductal dilatation. ENDOSCOPIC STUDIES:? 05/22/21 COLONOSCOPY SHOWED: Terminal Ileum: Distal 15 cms was examined and showed edema, erythema with luminal narrowing and scattered 4-5 mm ulcers - biopsies were obtained Impression and Post Procedure Diagnosis: No polyps were detected Random biopsies were obtained pelvic TI, right and left colon to check for IBD Moderate diverticulosis seen in the left colon Small hemorrhoids on retroflexed exam. Plan:? Repeat Colonoscopy in 5 years if biopsies are normal. Above findings were reviewed with the patient and? diverticulosis handouts were given in the discharge area BIOPSIES SHOWED: A.? Terminal ileum, biopsy:? Actively inflamed ileocolonic mucosa; no fully developed chronic injury seen. B.? Colon, right, biopsy:? Colonic mucosa within normal limits. C.? Colon, left, biopsy:? Colonic mucosa within normal limits. COMMENT:? The differential diagnosis for active inflammation in the terminal ileum in this case includes incipient inflammatory bowel disease, infection, drugs (e.g. NSAIDs) and other immune mediated processes.? No chronic inflammatory change is seen.? Please correlate with clinical [facility] Medical History Arthralgia Vitamin D deficiency 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 of left breast, stage 1 (~05/2022) Hx of deep venous thrombosis Adopted Ileitis Kidney stone Surgical History Hx of breast reconstruction (~11/05/23) History of bilateral salpingo-oophorectomy (BSO) Hx of bilateral mastectomy (~08/19/22) History of cystoscopy History of lithotripsy H/O esophagogastroduodenoscopy H/O colonoscopy (~05/22/21) History of laparoscopy (~2009) History of removal of calculus of renal pelvis through percutaneous nephrostomy (~2013) Family History Other Unknown family medical history Social History Household Members: Spouse Housing: House Alcohol intake: current Alcohol intake frequency: holidays/special occasions only Patient Tobacco Use Status: Former Tobacco user Years Smoked: 10 e-Cigarette/Vaping Use: Never Used service: No Current occupational status: unemployed Current occupation: right hand dominant Cognitive needs: No Hearing needs: No Vision needs: Yes Review of Systems Const Denies fever(s), Denies headache(s), Reports weight gain (of 50 lbs) and Denies weight loss Eyes Denies eye discharge and Denies irritation ENT Reports Normal hearing present, Denies dysphagia, Denies dizziness and Denies headache(s) Card Denies chest pain, Denies leg edema and Denies dyspnea on exertion Resp Denies cough, Denies dyspnea on exertion and Denies wheezing GI Reports abdominal pain, Denies change in bowel habits, Reports constipation, Denies dysphagia, Denies heartburn and Reports diarrhea Denies difficulty voiding and Denies dysuria Musc Denies back pain, Reports arthralgias and Reports other (arthritis) Skin/Breast Denies pruritus, Denies rash and Denies jaundice Neuro Reports Normal hearing present, Denies Abnormal speech present, Denies dizziness, Denies headache(s) and Denies seizure-like activity Psych Denies anxiety, Denies depression and Denies panic attacks Endo Denies cold intolerance, Denies flushing and Denies heat intolerance Liam/Lymph Denies easy bleeding and Denies easy bruising Aller/Immun Denies wheezing Physical Exam Vital Signs: Last Vital Signs Pulse 72 06/10/25 07:34 BP 97/64 06/10/25 07:34 Pulse Ox 98 06/10/25 07:34 Oxygen Delivery Method Room Air 06/10/25 07:34 BMI result Body Mass Index 29.4 Const General: healthy appearing and no acute distress Nutritional Appearance: overweight Orientation/consciousness: patient oriented x3 Limitations: no limitations HEENT Head: Yes normal to inspection Ears: hearing grossly normal bilaterally Eyes Sclerae: sclerae normal Pupils: Equal, round and reactive pupils present Neck Neck: Yes normal visual inspection Chest Chest palpation & inspection: normal inspection of the chest Resp Effort & Inspection: normal respiratory effort Auscultation: clear to auscultation bilaterally Cardio Palpation: normal PMI Rate: regular rate Rhythm: regular rhythm Heart sounds: S1 normal heart sound present, S2 normal heart sound present and no murmurs GI Palpation (GI): Soft to palpation, nontender and No hepatosplenomegaly present Auscultation: normal bowel sounds Rectal Exam - Female: deferred Skin General skin exam: no rashes or lesions noted Neuro General: patient oriented x3, gait normal and moves all extremities Cranial nerves: Yes Equal, round and reactive pupils present and Yes Normal hearing present Speech: No Abnormal speech present Psych Appearance: grossly normal Mental Status: mental status grossly normal Assessment & Plan Assessment & Plan (1) Ileitis: Code(s): K52.9 - Noninfective gastroenteritis and colitis, unspecified Category: Medical (2) Diverticulitis: Code(s): K57.92 - Diverticulitis of intestine, part unspecified, without perforation or abscess without bleeding Category: Medical Plan 54 YF with worsening upper abdominal pain radiating to the back - improving slowly after she started taking antibiotics Abd CT scan showed ileitis - possibly related to bacterial gastroenteritis versus Crohn's disease Episode of diverticulitis in Dec, 2020 (confirmed on CT scan) and resolved with antibiotic treatment. Further evaluation with labs showed an elevated fecal calprotectin of 148 and IBD serologies were normal. Colonoscopy showed moderate left sided diverticulosis and edema, erythema with luminal narrowing and scattered 4-5 mm ulcers in the TI - biopsies were obtained TI bx (reviewed with pathology) revealed actively inflamed ileocolonic mucosa; no fully developed chronic injury seen. Left sided abdominal pain possibly due to painful diverticular disease versus kidney stones versus endometriosis. Pt was advised to increase Pentasa to 2 capsules (1 gram) TID with improvement in abdominal pain.? 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 She has been seen at the Genetic Clinic at [facility] and advised screening for Ovarian and Pancreatic CA (Referred to Dr Peng at [facility] for pancreatic cancer screening). 01/10/23 Always constipated due to multiple medications. Has a BM once every 3 days Taking colace 3 times a day and trying to use the Miralax Pt was advised to take Senna once daily for constipation 09/16/24 Pt complains of intermittent lower abdominal pain Advised labs and CT scan Pt is on anastrozole and abd pain reported as a side effect in 7-9% of patients. 06/10/25 Pt advised to check a stool calprotectin - if still elevated, may need to switch to Humira Follow-up appointment in 2 months Orders: Orders Calprotectin, Fecal Today K52.9 - Noninfective gastroenteritis and colitis, unspecified Coding Level of Care Code Est Pt Level 4 (86948) Diagnoses Ileitis K52.9 Diverticulitis K57.92 Time Spent (min) 20
[2025-06-10 07:34] VITALS: BP 97/64; PULSE 72; O2SAT 98; BMI 29.4
== END 2025-06-10 08:13 | disposition home or self-care (01) ==
LOC: HO.HGI 07:21
PROVIDERS: PCP Internal Medicine; Visit Provider Internal Medicine Gastroenterology
DX: K52.9 Noninfective gastroenteritis and colitis, unspecified (principal); K57.92 Diverticulitis of intestine, part unspecified, without perforation or abscess without bleeding
CPT/HCPCS: 99214

== ENCOUNTER 2025-06-17 17:24 | Outpatient (REF) | payer OTHER, SELFPAY ==
[2025-06-24 01:59] LABS: Calprotectin, Fecal 80 mcg/g
== END 2025-06-17 17:25 | disposition home or self-care (01) ==
LOC: HO.LNP 17:24
PROVIDERS: Visit Provider Internal Medicine Gastroenterology
DX: K52.9 Noninfective gastroenteritis and colitis, unspecified (principal)
CPT/HCPCS: 83993

== ENCOUNTER 2025-07-20 09:14 | Outpatient (REF) | payer OTHER, SELFPAY ==
--- NOTE | ~2025-07-20 | MR_ITS ---
EXAMINATION: MR ABDOMEN WITHOUT THEN WITH IV CONTRAST, MR PELVIS WITHOUT THEN WITH IV CONTRAST HISTORY: K52.9 - Noninfective gastroenteritis and colitis, unspecified COMPARISON: Correlation is made with a CT of the abdomen and pelvis dated 05/29/2025. TECHNIQUE: Axial in and out of phase T1-weighted gradient echo, axial diffusion weighted, and axial and coronal HASTE T2 with fat saturation images were obtained through the abdomen. T2 images were continued through the pelvis. Subsequently, fat suppressed axial and coronal T1-weighted images were obtained through the abdomen and pelvis after the intravenous administration of 8.5 mL Gadavist. FINDINGS: Liver: There is no loss of signal intensity in the liver on opposed phase imaging to suggest steatosis. Again seen are multiple hepatic cysts, the largest of which is in the left lobe measuring 4.9 cm in diameter. There is no enhancing liver mass. The hepatic and portal veins are patent. There is no intrahepatic biliary dilatation. Gallbladder/biliary tree: No gallstones are identified. The common bile duct is normal in caliber. No intraluminal filling defects are identified to suggest choledocholithiasis. Spleen: The spleen is unremarkable. Pancreas: The pancreas is unremarkable. There is no enhancing pancreatic mass. The pancreatic duct is normal in caliber. Adrenals: The adrenal glands are unremarkable. Kidneys: The right kidney is unremarkable. A subcentimeter left renal cysts. There is no hydronephrosis. Lymph nodes: There is inflammatory change of the root of the mesentery with associated small lymph nodes as seen on CT. Fluid: There is no ascites in the upper abdomen. Visualized bowel: There are small bowel loops in the left midabdomen which demonstrate wall thickening and mucosal hyperenhancement, suggestive of active inflammatory bowel disease. The terminal ileum is unremarkable. Peristalsis appears normal. No colonic abnormality is seen. Visualized bones: The visualized bones demonstrate normal marrow signal intensity. MR/MR abdomen wo/w con IMPRESSION: 1. Small bowel loops in the left midabdomen which demonstrate wall thickening and mucosal hyperenhancement, suggestive of active inflammatory bowel disease. 2. Inflammatory change of the root of the mesentery with associated small lymph nodes as noted on CT. Electronically signed by: Ten Mora MD 07/20/2025 12:20 PM EDT
--- OUTSIDE RECORDS SUMMARY | 2025-07-20 09:57 | XMS_ITS ---
Author Organization [facility] Address [address] [place] [address] Phone Care Team Providers Care Baker Operator Automatic Name Role Phone Faheem Troy MD Primary Care Provider [phone] Self-Referred, Patient Unavailable Unavailab Jaqui Thomas MD Unavailable [phone] Angela Engle MD Unavailable [phone] Rufus Herrera MD Unavailable [phone] Micaela Ladd RN Unavailable Jennifer [email or web address] Active Problems Problem Noted Date Diagnosed Date Endometriosis 10/19/2024 Malignant neoplasm of female breast 10/22/2022 PALB2-related breast cancer 10/22/2022 Malignant neoplasm of lower- outer quadrant of left breast of female, estrogen receptor positive 10/02/2022 Cancer Staging:Clinical: Unsigned Crohn's disease 09/20/2022 Current Treatment and Therapy Plans ZOLEDRONIC ACID (ZOMETA)* Plan Start Date:10/22/2022 Plan Provider:Cydney Crespo CNP Linked Problems Malignant neoplasm of lower- outer quadrant of left breast of female, estrogen receptor positiveMalignant neoplasm of female breast, unspecified estrogen receptor status, unspecified laterality, unspecified site of breast Treatment Medications No medications scheduled. Past Treatment and Therapy Plans Oncology Therapy Plan Supplemental Plan Name Start Date Discontinue Date Treatment Medications Discontinue Reason Plan Provider LEUPROLIDE ACETATE 1 MONTH (LUPRON DEPOT 1 MONTH) 02/06/2023 01/03/2024 No medications scheduled. a. Therapy Complete Angela Engle MD LEUPROLIDE ACETATE 3 MONTH (LUPRON DEPOT 3 MONTH) 11/13/2022 01/15/2023 leuprolide (LUPRON) e. Reapplying Amended Protocol / Plan Cydney Crespo CNP LEUPROLIDE ACETATE 1 MONTH (LUPRON DEPOT 1 MONTH) 10/22/2022 10/25/2022 No medications scheduled. e. Reapplying Amended Protocol / Plan Cydney Crespo CNP
--- OUTSIDE RECORDS SUMMARY | 2025-07-20 09:57 | XMS_ITS | Encounter Summary ---
Author Organization [facility] Address [address] [address] Phone Care Team Providers Care Mercury Recoverer Name Role Phone Faheem Troy MD Primary Care Provider [phone] Self-Referred, Patient Unavailable Unavailab Jaqui Thomas MD Unavailable [phone] Angela Engle MD Unavailable [phone] Rufus Herrera MD Unavailable [phone] Micaela Ladd RN Unavailable Jennifer @[email or web address] Encounter Details Date Type Department Care Team (Late st Contact Info) Description [facility]2023 [facility] [place] [facility] [place] [address] [facility] [address] [place] [address] Social History Tobacco Use Types Packs/Day Years Used Date Smoking Tobacco: Former Cigarettes 0 11/24/1992 - 11/24/2002 Comments:Social smoker 1 PAC K PER WEEK [...] with a working camera? Not on file Comments No Sex and Gender Information Value [...] 9:50 AM EDT Blood Draw Laboratory Services, [facility] at [address] [address] Angela Engle MD [address] [place] [id number] [email or web address] 08/09/2025 11:00 AM EDT Office Visit [facility] for Breast Oncology, Amelia Aguirre [place] [facility], [facility] at [address] [address] Angela Engle MD [address] [place] [phone] [email or web address] 08/09/2025 12:00 PM EDT Infusion Infusion Therapy Services [facility], [facility] at [address] [address] Angela Engle MD [address] [place] [phone] Caio@[email or web address] Lata Tolliver, [address] [place] [phone] [email or web address] documented as of this encounter Visit Diagnoses Not on filedocumented in this encounter Care Teams Mercury Recoverer Relationship Specialty Start Date End Date Faheem Troy MD [address] [place] [address] [place] [address] PCP - General Internal Medicine 09/24/22 Self-Referred, Patient 09/24/22 [place] [address] [email or web address] Historical LMR Provider 09/09/17 Angela Engle MD [address] [place] [phone] [email or web address] Medical Oncology 10/03/22 Rufus Herrera MD [address] [place] [address] [place] [address] Hematology and Oncology 10/06/22 Micaela Ladd RN [address] [place] [phone] [email or web address] Primary Infusion Nurse 10/22/22 documented as of this encounter Additional Source Comments The information contained in this document represents components of the legal health record. It is not the complete legal health record.[facility]
--- OUTSIDE RECORDS SUMMARY | 2025-07-20 09:57 | XMS_ITS | Clinical Summary ---
Author Organization [facility] Address [address] [address] Care Team Providers Care Instructor Industrial Design Name Role Phone Faheem Troy MD Primary Care Provider [phone] Allergies Active Allergy Reactions Criticality Noted Date [...] Sigmoidoscopy 2021 Influenza Vaccine (#1) 2025 Insurance [facility] Care Teams Instructor Industrial Design Relationship Specialty Start Date End Date Faheem Troy MD [address] [place] [id number] PCP - General Internal Medicine 09/19/22
--- OUTSIDE RECORDS SUMMARY | 2025-07-20 09:57 | XMS_ITS | Encounter Summary ---
Author Organization [facility] Address [address] [address] Phone Care Team Providers Care Supervisor Food Checkers And Cashiers Name Role Phone Faheem Troy MD Primary Care Provider [phone] Self-Referred, Patient Unavailable Unavailab Jaqui Thomas MD Unavailable Angela Engle MD Unavailable [phone] Rufus Herrera MD Unavailable [phone] Micaela Ladd RN Unavailable Jennifer @[email or web address] Encounter Details Date Type Department Care Team (Late st Contact Info) Description 02/10/2025 Procedure Pass [facility] Endoscopy Department [address] [place] [address] Social History Tobacco Use Types Packs/Day Years [...] 9:50 AM EDT Blood Draw Laboratory Services, [facility] at [address] [address] Angela Engle MD [address] [place] [phone] [email or web address] 08/09/2025 11:00 AM EDT Office Visit [facility], [facility], [facility] at [address] [address] Angela Engle MD [address] [place] [phone] Caio@[email or web address] 08/09/2025 12:00 PM EDT Infusion Infusion Therapy Services South, [facility] at [address] [address] Angela Engle MD [address] [place] [phone] Caio@[email or web address] Lata Tolliver RN [address] [place] [address] Cynthia@[email or web address] documented as of this encounter Visit Diagnoses Not on filedocumented in this encounter Care Teams Supervisor Food Checkers And Cashiers Relationship Specialty Start Date End Date Faheem Troy MD [address] [place] [address] [place] [address] PCP - General Internal Medicine 09/24/22 Self-Referred, Patient 09/24/22 [place] [address] [email or web address] Historical LMR Provider 09/09/17 Angela Engle MD [address] [place] [phone] [email or web address] Medical Oncology 10/03/22 Rufus Herrera MD [address] [place] [address] [place] [address] Hematology and Oncology 10/06/22 Micaela Ladd RN [address] [place] [address] [email or web address] Primary Infusion Nurse 10/22/22 documented as of this encounter Additional Source Comments The information contained in this document represents components of the legal health record. It is not the complete legal health record.[facility]
--- OUTSIDE RECORDS SUMMARY | 2025-07-20 09:57 | XMS_ITS | Encounter Summary ---
Author Organization [facility] Address [address] [address] Phone Care Team Providers Care Polish Compounder Name Role Phone Faheem Troy MD Primary Care Provider [phone] Self-Referred, Patient Unavailable Unavailab Jaqui Thomas MD Unavailable [phone] Angela Engle MD Unavailable [phone] Rufus Herrera MD Unavailable [phone] Micaela Ladd RN Unavailable Jennifer @[email or web address] Encounter Details Date Type Department Care Team (Late st Contact Info) Description 02/21/2023 Procedure Pass [facility] Periop [address] [place] [address] Social History Tobacco Use Types Packs/Day Years Used Date Smoking Tobacco: Former Cigarettes 0 11/24/1992 - 11/24/2002 Comments:Social smoker 1 PAC K PER WEEK FOR 5 YEARS; QUIT 15 YEARS AGO Alcohol Use Standard Drinks/Week Comments Yes 0 (1 standard drink = 0.6 oz pur e alcohol) Comments No Sex and Gender Information Value [...] 9:50 AM EDT Blood Draw Laboratory Services, [facility] [place] at [address] [address] Angela Engle MD [address] [place] [address] Caio@[email or web address] 08/09/2025 11:00 AM EDT Office Visit Center for Breast Oncology, Amelia Aguirre [place] [facility], [facility] at [address] [address] Angela Engle MD [address] [place] [address] Caio@[email or web address] 08/09/2025 12:00 PM EDT Infusion Infusion Therapy Services [facility] at [address] [address] Angela Engle MD [address] [place] [address] Caio@[email or web address] Lata Tolliver RN [address] [place] [address] [email or web address] .[facility] documented as of this encounter Visit Diagnoses Not on filedocumented in this encounter Care Teams Polish Compounder Relationship Specialty Start Date End Date Faheem Troy MD [address] [place] [address] [place] [address] PCP - General Internal Medicine 09/24/22 Self-Referred, Patient 09/24/22 Jaqui Aleman MD [address]JE REYES [address] [email or web address] Historical LMR Provider 09/09/17 Angela Engle MD [address] [place] [address] Caio@[email or web address] Medical Oncology 10/03/22 Rufus Herrera MD [address] [place] [address] [place] [address] Hematology and Oncology 10/06/22 Micaela Ladd, RN [address] [place] [address] [email or web address] Primary Infusion Nurse 10/22/22 documented as of this encounter Additional Source Comments The information contained in this document represents components of the legal health record. It is not the complete legal health record.[facility]
--- OUTSIDE RECORDS SUMMARY | 2025-07-20 09:57 | XMS_ITS | Clinical Summary ---
Author Organization [facility] Address [address] [address] Phone Care Team Providers Care Armature Connector Name Role Phone Faheem Troy MD Primary Care Provider [phone] Self-Referred, Patient Unavailable Unavailab Jaqui Thomas MD Unavailable [phone] Angela Engle MD Unavailable [phone] Rufus Herrera MD Unavailable [phone] Micaela Ladd RN Unavailable Jennifer @[email or web address] Allergies Active Allergy Reactions Criticality Noted Date Comments Sulfa (Sulfonamide Antibiotics) Itching,Unknown 08/14/2012 Medications mesalamine (PENTASA) 500 MG CR capsule Take 1,000 mg by mouth. Active omeprazole (PRILOSEC OTC) 20 MG tablet Take 1 tablet (20 mg total) by mouth daily as needed. 06/01/2024 Active anastrozole (ARIMIDEX) 1 mg tablet TAKE 1 TABLET DAILY 90 tablet 3 12/14/2024 Active magnesium glycinate 200 mg magnesium capsule Take 200 mg by mouth. 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 Malignant neoplasm of lower- outer quadrant of left breast of female, estrogen receptor positive 10/02/2022 Cancer Staging:Clinical: Unsigned Crohn's disease 09/20/2022 Encounters Date Type Department Care Team Description 06/13/2025 Orders Only Center for Breast Oncology, [facility], [facility] [place] [facility] [place] 300 [facility] [address] [place] [address] Maria Alejandra Nichole, PharmD from Last 3 Months Social History Tobacco Use Types Packs/Day Years Used Date Smoking Tobacco: Former Cigarettes 0 11/24/1992 - 11/24/2002 Smokeless Tobacco: Never Tobacco Cessation:Counseling Given: Not Answered Comments:Social smoker 1 PACK PER WEEK FOR 5 YEARS; QUIT 15 [...] Orientation Straight 09/24/2022 5: 39 PM EDT Last Filed Vital Signs Vital Sign Reading Time Taken Comments Blood Pressure 157/76 02/10/2025 6:25 PM EDT Pulse 78 02/10/2025 6:25 PM EDT Temperature 37 C (98.6 F) 02/10/2025 3:35 PM EDT Respiratory Rate 18 02/10/2025 6:25 PM EDT Oxygen Saturation 98% 02/10/2025 6:25 PM EDT Inhaled Oxygen Concentration - - Weight 87.8 kg (193 lb 9 oz) 02/01/2025 9:15 AM EDT Height 166 cm (5' 5.35 ) 02/01/2025 9:15 AM EDT Body Mass Index 31.86 02/01/2025 9:15 AM EDT Plan of Treatment Upcoming Encounters Date Type Department Care Team (Late st Contact Info) Description 08/09/2025 9:50 AM EDT Blood Draw Laboratory Services, [facility] at [address] [address] Angela Engle MD [address] [place] [address] Caio@[email or web address] 08/09/2025 11:00 AM EDT Office Visit Center for Breast Oncology, Amelia Aguirre [place] [facility], [facility] at [address] [address] Angela Engle MD [address] [place] [address] Caio@[facility] 08/09/2025 12:00 PM EDT Infusion Infusion Therapy Services South, [facility] at [address] [address] Angela Engle MD [address] [place] [address] Caio@[facility] Lata Tolliver RN [address] [place] [address] [email or web address] .[facility] Health Maintenance Due Date Last Done Comments LIPID PANEL 1972 DEPRESSION SCREENING 1984 HEPATITIS C SCREENING 1990 HIV ONE-TIME SCREENING (18-6 5 YEARS) 1990 PNEUMOCOCCAL VACCINES (50+ y ears) (1 of 2 - PCV) 1991 ZOSTER VACCINES (1 of 2) 1991 PAP SMEAR 1993 MAMMOGRAM 2012 Adult Td,Tdap Booster 06/02/2014 06/02/2004 COLOGUARD 2017 COLONOSCOPY 2017 COLORECTAL CANCER SCREENING 2017 FIT TEST 2017 FOBT 2017 SIGMOIDOSCOPY 2017 VIRTUAL COLONOSCOPY 2017 COVID-19 VACCINE (1 - 2023-2 5 season) 2024 SMOKING Hx and SMOKELESS TOB ACCO SCREENING 02/10/2026 02/10/2025 SCREENING FOR DIABETES 02/02/2028 02/01/2025 HEPATITIS A VACCINES Aged Out No long er eligible based on patient's age to complete this topic HIB VACCINES Aged Out No longer eligi ble based on patient's age to complete this topic MENINGOCOCCAL VACCINES (ACWY) Aged Out No longer eligible based on patient's age to complete this topic MENINGOCOCCAL VACCINES (B) Aged Out N o longer eligible based on patient's age to complete this topic Medical Devices Implanted Type Area Litigation Services Manager Device Identifier Shelf Expiration Date Model / Serial / Lot Breast Breast Insurance [facility] PPO [employer]IL[employer]IM PPO [employer] PPO [employer] PPO [employer] PPO [employer]ER [employer] PPO [employer]ER [employer]IL[employer]IM PPO [employer] PPO [facility] PPO Care Teams Armature Connector Relationship Specialty Start Date End Date Faheem Troy MD [address] [place] [address] [place] [address] PCP - General Internal Medicine 09/24/22 Self-Referred, Patient 09/24/22 [place] [address] [email or web address] Historical LMR Provider 09/09/17 Angela Engle MD [address] [place] [address] [email or web address] Medical Oncology 10/03/22 Rufus Herrera MD [address] [place] [address] [place] [address] Hematology and Oncology 10/06/22 Micaela Ladd RN [address] [place] [phone] [email or web address] Primary Infusion Nurse 10/22/22 Additional Source Comments The information contained in this document represents components of the legal health record. It is not the complete legal health record.[facility]
== END 2025-07-20 09:15 | disposition home or self-care (01) ==
LOC: HO.MRI 09:14
PROVIDERS: PCP Internal Medicine; Visit Provider Internal Medicine Gastroenterology
DX: K52.9 Noninfective gastroenteritis and colitis, unspecified (principal)
CPT/HCPCS: 72197; 74183; A9585

== ENCOUNTER → 2025-07-20 09:31 | Outpatient (BNV) | payer OTHER, SELFPAY | PROVIDERS: PCP Internal Medicine; Visit Provider Radiology Diagnostic Radiology | DX: K52.9 Noninfective gastroenteritis and colitis, unspecified (principal) | CPT/HCPCS: 72197; 74183 ==

== ENCOUNTER 2025-08-19 11:32 | Outpatient (REF) | payer OTHER, SELFPAY ==
[2025-08-22 05:00] LABS: HBS Num1 0.15 mIU/mL (0-7.99); HBc Num1 0.12 S/CO (0.00-0.79); HBsAGNum1 0.29 S/CO (0.00-0.99); HIV Num 1 0.05 S/CO (0.00-0.99); Hepatitis B Surface Antigen Negative (Negative); ~HepC Num1 0.11 S/CO (0.00-0.79); ~Hepatitis B Surface Antibody NONREACTIVE (Nonreactive); ~Hepatitis C Antibody Nonreactive (Nonreactive)
[2025-08-22 08:49] LABS: TS Negative Control Passed; TS Panel A 0; TS Panel B 1; TS Positive Control Passed; TSpotTB Negative (Negative)
[2025-08-26 05:42] LABS: ~Hepatitis A Antibody IgG 0.47 S/CO (0.00-0.99)
== END 2025-08-19 11:33 | disposition home or self-care (01) ==
LOC: HO.HMGCLDS 11:32
PROVIDERS: PCP Internal Medicine; Visit Provider Internal Medicine Gastroenterology
DX: J06.9 Acute upper respiratory infection, unspecified (principal); K50.90 Crohn's disease, unspecified, without complications; Z11.1 Encounter for screening for respiratory tuberculosis; Z11.4 Encounter for screening for human immunodeficiency virus [HIV]; Z87.891 Personal history of nicotine dependence
CPT/HCPCS: 36415; 86481; 86704; 86706; 86708; 86803; 87340; 87389

== ENCOUNTER 2025-08-19 11:32 | Outpatient (AMB) | payer OTHER, SELFPAY ==
--- NOTE | 2025-08-19 11:37 | MHC.OFFWIV ---
Intake Vital Signs 08/19/25 11:38 Weight 186 lb BP 122/78 Blood Pressure Location Lt brachial Position Sitting Respiration 16 Pulse 84 Pulse Source Pulse Oximeter Temp 98.1 F Temp Source Oral Pulse Oximetry (%) 96 Oxygen Delivery Method Room Air Intake Visit Reasons: ep cough for two weeks Patient Tobacco Use Status: Former Tobacco user Licensed Clinical Psychologist Required: No Accompanied by: Self / Same As Patient Allergies Sulfa (Sulfonamide Antibiotics) (SULFA (SULFONAMIDE ANTIBIOTICS)) Allergy (Intermediate, Verified 08/19/25 11:41) ITCHING, pruritus HPI HPI Comments History of Present Illness Details History - The patient is a 54-year-old female presenting with a persistent cough and congestion lasting for two weeks. - The cough is dry and persistent, with no productive sputum. - Associated symptoms include chest tightness and loss of voice, which began after a night at work. - Denies fever, wheezing, ear pain, sinus pain, and fatigue. - DayQuil was initially effective but is no longer providing relief. - No history of asthma, COPD, or smoking. 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 - is also sick, on his 3rd week, his full viral panel was negative. Physical Exam General: Cooperative, healthy appearing, comfortable and no acute distress Orientation/consciousness: Patient oriented x3 Limitations: No limitations Head: Normal to inspection Ears: Hearing grossly normal bilaterally, external ears normal and TM's normal bilaterally Nose: Normal external nose present, Normal nares present and No nasal discharge present Face and sinus: Normal facial exam and Yes sinuses nontender Mouth: Normal oral and palatal mucosa present and moist mucous membranes Throat: Yes tonsils normal, Yes uvula midline. Posterior oropharynx erythema, no exudates Eyes: Appearance normal, both eyes and all related structures Neck: Normal visual inspection, full ROM Respiratory: Clear to auscultation bilaterally. Normal respiratory effort, able to speak in complete sentences, not actively coughing, no respiratory distress, not tachypneic, no tripod positioning and no use of accessory muscles Cardiovascular: Regular rate and rhythm. Normal S1 and S2 Skin: No rashes or lesions noted Neuro: Patient oriented x3 Extremities: Normal to inspection and Yes no clubbing, cyanosis or edema Review of Systems - Respiratory: Reports persistent dry cough and chest tightness. Denies wheezing. - General: Denies fever and fatigue. - ENT: Reports loss of voice. Denies ear pain and sinus pain. All systems reviewed and are unremarkable except as noted in HPI [facility] Medical History Arthralgia Vitamin D deficiency 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 of left breast, stage 1 (~05/2022) Hx of deep venous thrombosis Adopted Ileitis Kidney stone Surgical History Hx of breast reconstruction (~11/05/23) History of bilateral salpingo-oophorectomy (BSO) Hx of bilateral mastectomy (~08/19/22) History of cystoscopy History of lithotripsy H/O esophagogastroduodenoscopy H/O colonoscopy (~05/22/21) History of laparoscopy (~2009) History of removal of calculus of renal pelvis through percutaneous nephrostomy (~2013) Family History Other Unknown family medical history Social History Household Members: Spouse Housing: House Alcohol intake: current Alcohol intake frequency: holidays/special occasions only Patient Tobacco Use Status: Former Tobacco user Years Smoked: 10 e-Cigarette/Vaping Use: Never Used service: No Current occupational status: unemployed Current occupation: right hand dominant Cognitive needs: No Hearing needs: No Vision needs: Yes Physical Exam Vital Signs: Last Vital Signs Temp 98.1 F 08/19/25 11:38 Pulse 84 08/19/25 11:38 Resp 16 08/19/25 11:38 BP 122/78 08/19/25 11:38 Pulse Ox 96 08/19/25 11:38 Oxygen Delivery Method Room Air 08/19/25 11:38 Assessment & Plan Assessment & Plan (1) URI, acute: Code(s): J06.9 - Acute upper respiratory infection, unspecified Plan: Plan Patient was informed and verbally consented to the use of an ambient scribe for clinic note documentation during this visit. - VSS, pt well appearing and PE unremarkable. - is also sick with similar symptoms, his viral panel was negative. Likely a bacterial infection. - Prescribed a Z-Boy (azithromycin) to address potential bacterial infection. - Provided Tessalon Perles for cough suppression, to be taken at bedtime or every eight hours if needed. - Advised the use of honey and lemon ruben tea for throat soothing. - Recommended continuation of DayQuil for symptomatic relief. Medications: New azithromycin For 250 mg dose pack: take 500 mg today (day 1), then 250 mg for 4 days (days 2-5) PO 6 tabs 0RF benzonatate 200 mg PO BEDTIME PRN 20 caps 0RF cough Coding Level of Care Code Est Pt Level 3 (57662) Diagnoses URI, acute J06.9
[2025-08-19 11:38] VITALS: BP 122/78; PULSE 84; RESP 16; TEMP 36.7; O2SAT 96
--- OUTSIDE RECORDS SUMMARY | 2025-08-19 13:27 | XMS_ITS | Encounter Summary ---
Author Organization [facility] Address [address] [address] Phone Care Team Providers Care Assistant Associate Professor Name Role Phone Faheem Troy MD Primary Care Provider [phone] Self-Referred, Patient Unavailable Unavailab Jaqui Thomas MD Unavailable [phone] Angela Engle MD Unavailable [phone] Rufus Herrera MD Unavailable [phone] Micaela Ladd RN Unavailable Jennifer @[facility] Encounter Details Date Type Department Care Team (Late st Contact Info) Description 02/10/2025 Procedure Pass [facility] Endoscopy Department [address] [place] [address] Social History Tobacco Use Types Packs/Day Years [...] Care Team (Late st Contact Info) Description 02/07/2026 10:30 AM EDT Telemedicine Center for Breast Oncology, Amelia Aguirre [place] [facility], [facility] [place] [facility] [place] [address] [address] Ria Tee NP [address] [place] [address] [email or web address] .[facility] Angela Engle MD [address] [place] [address] [email or web address] documented as of this encounter Visit Diagnoses Not on filedocumented in this encounter Care Teams Assistant Associate Professor Relationship Specialty Start Date End Date Faheem Troy MD [address] [place] [address] [place] [address] PCP - General Internal Medicine 09/24/22 Self-Referred, Patient 09/24/22 [place] [address] [email or web address] Historical LMR Provider 09/09/17 Angela Engle MD [address] [place] [address] Caio@[email or web address] Medical Oncology 10/03/22 Rufus Herrera MD [address] [place] [address] [place] [address] [email or web address] Hematology and Oncology 10/06/22 Micaela Ladd RN [address] [place] [address] [email or web address] Primary Infusion Nurse 10/22/22 documented as of this encounter Additional Source Comments The information contained in this document represents components of the legal health record. It is not the complete legal health record.[facility]
--- OUTSIDE RECORDS SUMMARY | 2025-08-19 13:27 | XMS_ITS | Encounter Summary ---
Author Organization [facility] Address [address] [address] Phone Care Team Providers Care Land Commissioner Name Role Phone Faheem Troy MD Primary Care Provider [phone] Self-Referred, Patient Unavailable Unavailab Jaqui Thomas MD Unavailable [phone] Angela Engle MD Unavailable [phone] Rufus Herrera MD Unavailable [phone] Micaela Ladd RN Unavailable Jennifer @[email or web address] Encounter Details Date Type Department Care Team (Late st Contact Info) Description 11/26/2023 [facility] [place] [facility] [place] [place] 300 [facility] 4th [place] [address] Social History Tobacco Use Types Packs/Day Years [...] Telemedicine Center for Breast Oncology, Amelia Aguirre [place] [facility], [facility] [place] [facility] [place] 300 [facility] 4th [place] [address] Ria Tee NP [address] [place] [address] [email or web address] .[facility] Angela Engle MD [address] [place] [address] [email or web address] documented as of this encounter Visit Diagnoses Not on filedocumented in this encounter Care Teams Land Commissioner Relationship Specialty Start Date End Date Faheem Troy MD [address] [place] [address] [place] [address] PCP - General Internal Medicine 09/24/22 Self-Referred, Patient 09/24/22 [place] [address] [email or web address] Historical LMR Provider 09/09/17 Angela Engle MD [address] [place] [address] [email or web address] Medical Oncology 10/03/22 Rufus Herrera MD [facility] [place] [address] [email or web address] Hematology and Oncology 10/06/22 Micaela Ladd RN [address] [place] [address] [email or web address] Primary Infusion Nurse 10/22/22 documented as of this encounter Additional Source Comments The information contained in this document represents components of the legal health record. It is not the complete legal health record.[facility]
--- OUTSIDE RECORDS SUMMARY | 2025-08-19 13:27 | XMS_ITS | Clinical Summary ---
Author Organization [facility] Facility Address [address] [address] Care Team Providers Care Physical Chemistry Teacher Name Role Phone Faheem Troy MD Primary Care Provider [phone] Allergies Active Allergy Reactions Criticality Noted Date [...] Sigmoidoscopy 2021 Influenza Vaccine (#1) 2025 Insurance [facility] Care Teams Physical Chemistry Teacher Relationship Specialty Start Date End Date Faheem Troy MD [address] [place] [address] PCP - General Internal Medicine 09/19/22
--- OUTSIDE RECORDS SUMMARY | 2025-08-19 13:27 | XMS_ITS | Encounter Summary ---
Author Organization [facility] Address [address] [address] Phone Care Team Providers Care Delinquent Account Clerk Name Role Phone Faheem Troy MD Primary Care Provider [phone] Self-Referred, Patient Unavailable Unavailab Jaqui Thomas MD Unavailable [phone] Angela Engle MD Unavailable [phone] Rufus Herrera MD Unavailable [phone] Micaela Ladd RN Unavailable Jennifer @[email or web address] Encounter Details Date Type Department Care Team (Late st Contact Info) Description 02/21/2023 Procedure Pass [facility] Periop [address] [place] [address] Social History Tobacco Use Types Packs/Day Years [...] EDT Telemedicine Center for Breast Oncology, [facility] [place] [facility], [facility] [place] [facility] [place] [address] [address] Ria Tee [employer] LAMINATING OPERATOR [address] [place] [address] [email or web address] .[facility] Angela Engle MD [address] [place] [address] [email or web address] documented as of this encounter Visit Diagnoses Not on filedocumented in this encounter Care Teams Delinquent Account Clerk Relationship Specialty Start Date End Date Faheem Troy MD [address] [place] [address] [place] [address] PCP - General Internal Medicine 09/24/22 Self-Referred, Patient 09/24/22 [place] [address] [email or web address] Historical LMR Provider 09/09/17 Angela Engle MD [address] [place] [phone] [email or web address] Medical Oncology 10/03/22 Rufus Herrera MD [facility] [place] [address] [email or web address] Hematology and Oncology 10/06/22 Micaela Ladd RN 300 [place] [address] [email or web address] Primary Infusion Nurse 10/22/22 documented as of this encounter Additional Source Comments The information contained in this document represents components of the legal health record. It is not the complete legal health record.[facility]
--- OUTSIDE RECORDS SUMMARY | 2025-08-19 13:28 | XMS_ITS | Clinical Summary ---
Author Organization [facility] Address [address] [address] Phone Care Team Providers Care Community Center Coordinator Name Role Phone Faheem Troy MD Primary Care Provider [phone] Self-Referred, Patient Unavailable Unavailab Jaqui Thomas MD Unavailable [phone] Angela Engle MD Unavailable [phone] Rufus Herrera MD Unavailable [phone] Micaela Ladd RN Unavailable Jennifer [email or web address] Allergies Active Allergy Reactions Criticality Noted Date Comments Sulfa (Sulfonamide Antibiotics) Itching,Unknown 08/14/2012 Medications mesalamine (PENTASA) 500 MG CR capsule Take 1,000 mg by mouth. Active omeprazole (PRILOSEC OTC) 20 MG tablet Take 1 tablet (20 mg total) by mouth daily as needed. 4 Active magnesium glycinate 200 mg magnesium capsule Take 200 mg by mouth daily with breakfast. Active anastrozole (ARIMIDEX) 1 mg tablet Take 1 tablet (1 mg total) by mouth daily. 90 tablet 3 5 Active DULoxetine (CYMBALTA) 30 MG capsule Take 1 capsule (30 mg total) by mouth daily. 90 capsule 2 5 Active cholecalciferol 25 MCG (1,000 unit) tablet Take 2 tablets (2,000 Units total) by mouth daily. Patient thinks dose is about 2000 U daily 5 Active calcium citrate (CALCITRATE) 950 mg (200 mg elemental) tablet Take 1 tablet (950 mg total) by mouth daily. 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 Malignant neoplasm of lower- outer quadrant of left breast of female, estrogen receptor positive 10/02/2022 Cancer Staging:Clinical: Unsigned Crohn's disease 09/20/2022 Encounters Date Type Department Care Team Description 08/09/2025 12:00 PM EDT Infusion Infusion Therapy Services [facility] at [address] [address] Angela Engle MD Glynn-Burke, Kellie, LB Malignant neoplasm of lower-outer quadrant of left breast of female, estrogen receptor positive (Primary Dx); Malignant neoplasm of female breast, unspecified estrogen receptor status, unspecified laterality, unspecified site of breast 08/09/2025 11:00 AM EDT Office Visit [facility], [facility], [facility] at [address] [address] Angela Engle MD Malignant neoplasm of lower-outer quadrant of left breast of female, estrogen receptor positive (Primary Dx); PALB2-related breast cancer in female; Osteopenia of neck of left femur; Arthralgia, unspecified joint; Aromatase inhibitor use 06/13/2025 Orders Only [facility], [facility] at [address] [address] Maria Alejandra Nichole, VanceD from Last 3 Months Social History Tobacco [...] Sign Reading Time Taken Comments Blood Pressure 132/91 08/09/2025 10:51 AM EDT Pulse 72 08/09/2025 10:51 AM EDT Temperature 36.9 C (98.4 F) 08/09/2025 10:51 AM EDT Respiratory Rate 18 08/09/2025 10:51 AM EDT Oxygen Saturation 99% 08/09/2025 10:51 AM EDT Inhaled Oxygen Concentration - - Weight 85.7 kg (188 lb 15 oz) 08/09/2025 10:51 A M EDT Height 166 cm (5' 5.35 ) 08/09/2025 10:51 AM EDT Body Mass Index 31.1 08/09/2025 10:51 AM EDT Plan of Treatment Upcoming Encounters Date Type Department Care Team (Late st Contact Info) Description 02/07/2026 10:30 AM EDT Telemedicine [facility], [facility] [place] [address] [facility] 4th [place] [address] Ria Tee NP [address] [place] [phone] [email or web address] Angela Engle MD [address] [place] [address] [email or web address] Health Maintenance Due Date Last Done Comments [...] FOBT 2017 SIGMOIDOSCOPY 2017 VIRTUAL COLONOSCOPY 2017 INFLUENZA VACCINE (#1) 2025 COVID-19 VACCINE ( - 2023-2 5 season) 2025 SMOKING Hx and SMOKELESS TOB ACCO SCREENING 02/10/2026 02/10/2025 SCREENING FOR DIABETES 08/09/2028 08/09/2025 HEPATITIS A VACCINES Aged Out No long [...] this topic Medical Devices Implanted Type Area Itinerant Teacher Assistant Device Identifier Shelf Expiration Date Model / Serial / Lot Breast Breast Procedures Procedure Name Priority Date/Time Associated Diagnosis Comments 25-OH VITAMIN D Routine 08/09/2025 10:39 AM EDT Disorder of bone, unspecified PHOSPHORUS Routine 08/09/2025 10:39 AM EDT Malignant neoplasm of lower-outer quadrant of left breast of female, estrogen receptor positive Disorder of bone, unspecified MAGNESIUM Routine 08/09/2025 10:39 AM EDT Malignant neoplasm of lower-outer quadrant of left breast of female, estrogen receptor positive Disorder of bone, unspecified COMPREHENSIVE METABOLIC PANEL Routine 08/09/2025 10:39 AM EDT Malignant neoplasm of lower-outer quadrant of left breast of female, estrogen receptor positive Disorder of bone, unspecified HC BLOOD COUNT COMPLETE AUTO&AUTO DIFRNTL WBC Routine 08/09/2025 10:39 AM EDT Malignant neoplasm of lower-outer quadrant of left breast of female, estrogen receptor positive Disorder of bone, unspecified from Last 3 Months Results * (ABNORMAL) Comprehensive metabolic panel (08/09/2025 10:39 AM EDT) SODIUM 140 136 - 145 mmol/L [facility] POTASSIUM 4.2 3.4 - 5.1 mmol/L [facility] CHLORIDE 102 98 - 107 mmol/L [facility] CO2 28 22 - 31 mmol/L [facility] BUN 19 6 - 23 mg/dL [facility] CREATININE 0.81 0.50 - 1.20 mg/dL [facility] GLUCOSE 91 70 - 100 mg/dL [facility] ALBUMIN 4.3 3.5 - 5.2 g/dL [facility] TOTAL PROTEIN 7.2 6.4 - 8.3 g/dL [facility] CALCIUM 9.7 8.8 - 10.7 mg/dL [facility] ALKALINE PHOSPHATASE 85 35 - 104 U/L [facility] TOTAL BILIRUBIN 0.3 0.2 - 1.2 mg/dL [facility] AST 26 <33 U/L [facility] ALT 35(H) <34 U/L [facility] GLOBULIN 2.9 2.3 - 4.2 g/dL [facility] EGFR 87 >59 mL/min/1.7 3m2 [facility] Comment:Estimated glomerular filtration rate calculated using the CKD-EPI refit equation. ANION GAP 10 7 - 17 mmol/L [facility] Blood 08/09/2025 10:3 9 AM EDT 08/09/2025 10:43 AM EDT Ria Tee NP LAB BLOOD ORDERABLES Final Result Performing Organization Address City/[facility]/ZIP Co de Phone Number [facility] [address] [place] [address], [facility] * 25-OH vitamin D (08/09/2025 10:39 AM EDT) Pathologist [facility] 25 OH VIT D (TOTAL) 45 20 - 50 ng/mL [facility] Comment: <10 ng/mL Severe deficiency 10-19 ng/mL Mild to moderate deficiency 20-50 ng/ml Optimum levels 51-80 ng/mL Increased risk of hypercalciuria >80 ng/mL Toxicity possible Blood 08/09/2025 10:3 9 AM EDT 08/09/2025 10:43 AM EDT Ria Tee NP LAB BLOOD ORDERABLES Final Result [facility] [address] [place] [address] * (ABNORMAL) CBC and differential (08/09/2025 10:39 AM EDT) Pathologist [facility] WBC 4.47 4.00 - 10.00 K/uL [facility] RBC 4.63 3.90 - 6.00 M/uL [facility] HGB 12.9 11.5 - 16.4 g/dL [facility] HCT 40.1 36.0 - 48.0 % [facility] PLT 208 150 - 450 K/uL [facility] MCV 86.6 80.0 - 100.0 fL [facility] MCH 27.9 27.0 - 32.0 pg [facility] MCHC 32.2 32.0 - 36.0 g/dL [facility] RDW 13.4 11.5 - 14.5 % [facility] MPV 10.4 8.4 - 12.0 fL [facility] NRBC 0.00 0.00 /100 WBCs [facility] ABSOLUTE NRBC 0.00 0 K/uL [facility] DIFF METHOD Auto [facility] NEUTS 47.7(L) 48.0 - 76.0 % [facility] LYMPHS 40.0 18.0 - 41.0 % [facility] MONOS 8.1 4.0 - 11.0 % [facility] EOS 3.1 0.0 - 5.0 % [facility] BASOS 0.9 0.00 - 1.50 % [facility] % IMMATURE GRANS 0.2 0.00 - 1.00 % [facility] ABSOLUTE NEUTS 2.13 1.92 - 7.60 K/uL [facility] ABSOLUTE LYMPHS 1.79 0.72 - 4.10 K/uL [facility] ABSOLUTE MONOS 0.36 0.16 - 1.10 K/uL [facility] ABSOLUTE EOS 0.14 0.00 - 0.50 K/uL [facility] ABSOLUTE BASOS 0.04 0.00 - 0.15 K/uL [facility] ABS IMMATURE GRANS 0.01 0.00 - 0.10 K/uL [facility] Blood 08/09/2025 10:3 9 AM EDT 08/09/2025 10:43 AM EDT us Ria Tee SHEET METAL WORK FURNACE INSTALLER LAB BLOOD ORDERABLES Final Result Performing Organization Address [facility] de Phone Number [address] * Phosphorus (08/09/2025 10:39 AM EDT) PHOSPHORUS 3.7 2.5 - 4.5 mg/dL [facility] Blood 08/09/2025 10:3 9 AM EDT 08/09/2025 10:43 AM EDT us Ria Tee SHEET METAL WORK FURNACE INSTALLER LAB BLOOD ORDERABLES Final Result Performing Organization Address [facility] Co de Phone Number [address] * Magnesium (08/09/2025 10:39 AM EDT) MAGNESIUM 2.3 1.7 - 2.6 mg/dL [facility] Blood 08/09/2025 10:3 9 AM EDT 08/09/2025 10:43 AM EDT Ria Tee SHEET METAL WORK FURNACE INSTALLER LAB BLOOD ORDERABLES Final Result Performing Organization Address [facility] de Phone Number [address] from Last [address] [place] [address] [place] [address] [facility] [address] [facility]PO [facility] PPO [employer] [facility] [facility]PO [facility] PPO [facility] PPO Care Teams Community Center Coordinator Relationship Specialty Start Date End Date Faheem Troy MD [address] [place] [address] PCP - General Internal Medicine 09/24/22 Self-Referred, Patient 09/24/22 Jaqui Aleman MD ERICJORJE [id number] [email or web address] Historical LMR Provider 09/09/17 Angela Engle MD [address] [place] [phone] [email or web address] Medical Oncology 10/03/22 Rufus Herrera MD [address] [place] [address] [place] [address] [email or web address] Hematology and Oncology 10/06/22 Micaela Ladd RN [address] [place] [phone] [email or web address] Primary Infusion Nurse 10/22/22 Additional Source Comments The information contained in this document represents components of the legal health record. It is not the complete legal health record.[facility]
--- OUTSIDE RECORDS SUMMARY | 2025-08-19 13:28 | XMS_ITS ---
Author Organization [facility] Address [address] [place] [address] Phone Care Team Providers Care Certified Paralegal Name Role Phone Faheem Troy MD Primary Care Provider [phone] Self-Referred, Patient Unavailable Unavailab Jaqui Thomas MD Unavailable [phone] Angela Engle MD Unavailable [phone] Rufus Herrera MD Unavailable [phone] Micaela Ladd RN Unavailable Jennifer [email or web address] Active Problems Problem Noted Date Diagnosed Date [...]
== END 2025-08-19 12:02 | disposition home or self-care (01) ==
PROVIDERS: PCP Internal Medicine; Visit Provider Physician Assistant
DX: J06.9 Acute upper respiratory infection, unspecified (principal)

== ENCOUNTER 2025-08-23 12:16 | Outpatient (REF) | payer OTHER, SELFPAY ==
[2025-08-24 09:51] LABS: Chlamydia pneumoniae PCR Not Detected (Not Detect.); Coronavirus 229E PCR Not Detected (Not Detect.); Coronavirus HKU1 PCR Not Detected (Not Detect.); Coronavirus NL63 PCR Not Detected (Not Detect.); Coronavirus OC43 PCR Not Detected (Not Detect.); RSV PCR Not Detected (Not Detect.); Rhino/Enterovirus PCR Not Detected (Not Detect.)
[2025-08-24 10:08] LABS: Influenza A H1 PCR Not Detected (Not Detect.); Influenza A H1-2009 PCR Not Detected (Not Detect.); Influenza A H3 PCR Not Detected (Not Detect.); SARS-CoV-2 PCR Not Detected (Not Detect.)
== END 2025-08-23 12:17 | disposition home or self-care (01) ==
LOC: HO.LNP 12:16
PROVIDERS: PCP Internal Medicine; Visit Provider Physician Assistant Medical
DX: J02.9 Acute pharyngitis, unspecified (principal); R05.1 Acute cough; Z87.891 Personal history of nicotine dependence
CPT/HCPCS: 87070; 87633; 87880

== ENCOUNTER 2025-08-23 12:16 | Outpatient (AMB) | payer OTHER, SELFPAY ==
[2025-08-23 12:49] VITALS: BP 106/80; PULSE 75; TEMP 37.1; O2SAT 98; BMI 29.4
--- NOTE | 2025-08-23 12:49 | AM.OFFWIN_ITS ---
Intake Vital Signs 08/23/25 12:49 Height 5 ft 7 in Weight 188 lb BMI 29.4 BP 106/80 Blood Pressure Location Rt brachial Position Sitting Pulse 75 Pulse Source Pulse Oximeter Temp 98.7 F Temp Source Oral Pulse Oximetry (%) 98 Oxygen Delivery Method Room Air Intake Visit Reasons: EP Sore throat (Car [phone]) Patient Tobacco Use Status: Former Tobacco user Allergies Sulfa (Sulfonamide Antibiotics) (SULFA (SULFONAMIDE ANTIBIOTICS)) Allergy (Intermediate, Verified 08/23/25 12:51) ITCHING, pruritus Do you need a note to return to daycare/school/sports/work: Yes HPI HPI Comments History of Present Illness Details History of Present Illness - The patient is a 54-year-old female pr esenting with sore throat and a cough. - Symptoms began after exposure to her h usband, who has been ill for four weeks. - Initial symptoms included chest conges tion and loss of voice, followed by persistent cough. - Intermittent sore throat temporarily i mproved with azithromycin (Z-Boy) that she was given on 08/19 but recurred. - She finished her z-boy today and the s ore throat has returned. - Gkll-pgm-vwjsrzl medications such as D ayQuil and Linda-Lawndale Plus provided limited relief. - No fever, shortness of breath, or back pain reported. - History of Crohn's disease causing chr onic diarrhea. - She has a partner with the same sympto ms as her. - She is not a smoker. - She has no recent travel. Physical Exam General: Cooperative, healthy appearing, comfortable, no acute distress and well developed Orientation: Patient oriented x3 Limitations: No limitations Head: Normal to inspection Ears: Hearing grossly normal bilaterally. TM's normal, not bulging. Nose: Normal external nose present Face and sinus: Normal facial exam. No sinus tenderness. Throat: Uvula is midline. Oropharynx and tonsils erythematous with some exudates noted. Neck: Normal visual inspection and Yes full ROM. No lymphadenopathy noted. Respiratory: Normal respiratory effort and able to speak in complete sentences. Clear to auscultation bilaterally, no wheezing Cardiovascular: Regular rate and rhythm. Normal S1 and S2 GI: Normal to inspection. Soft to palpation and nontender Skin: No rashes or lesions noted Patient was informed and verbally consented to the use of an ambient scribe for clinic note documentation during this visit. [facility] Medical History Arthralgia Vitamin D deficiency 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 of left breast, stage 1 (~05/2022) Hx of deep venous thrombosis Adopted Ileitis Kidney stone Surgical History Hx of breast reconstruction (~11/05/23) History of bilateral salpingo-oophorectomy (BSO) Hx of bilateral mastectomy (~08/19/22) History of cystoscopy History of lithotripsy H/O esophagogastroduodenoscopy H/O colonoscopy (~05/22/21) History of laparoscopy (~2009) History of removal of calculus of renal pelvis through percutaneous nephrostomy (~2013) Family History Other Unknown family medical history Social History Household Members: Spouse Housing: House Alcohol intake: current Alcohol intake frequency: holidays/special occasions only Patient Tobacco Use Status: Former Tobacco user Years Smoked: 10 e-Cigarette/Vaping Use: Never Used service: No Current occupational status: unemployed Current occupation: right hand dominant Cognitive needs: No Hearing needs: No Vision needs: Yes Review of Systems Const All systems reviewed & are unremarkable except as noted in HPI and below Physical Exam Vital Signs: Last Vital Signs Temp 98.7 F 08/23/25 12:49 Pulse 75 08/23/25 12:49 BP 106/80 08/23/25 12:49 Pulse Ox 98 08/23/25 12:49 Oxygen Delivery Method Room Air 08/23/25 12:49 BMI result Body Mass Index 29.4 Results AMB Rapid Strep AMB Rapid Strep Negative Last Edit by Edita Faulkner MA on 08/23/25 14:07 Assessment & Plan Assessment & Plan (1) Sore throat: Code(s): J02.9 - Acute pharyngitis, unspecified (2) Cough: Code(s): R05.9 - Cough, unspecified Qualifiers: Cough type: acute Qualified Code(s): R05.1 - Acute cough Plan Most likely URI vs viral illness vs strep pharyngitis Rapid was negative in the office plan - Initiate treatment with Augmentin to cover potential bacterial causes such as sinusitis or streptococcal pharyngitis. - Conduct a full respiratory panel and throat culture to identify viral or bacterial pathogens. - will call her with the results and treat accordingly - tylenol or motrin as needed - follow up with PCP Orders: Orders AMB Rapid Strep Screen Today J02.9 - Acute pharyngitis, unspecified Resp Pathogen Panel - [facility] Today J06.9 - Acute upper respiratory infection, unspecified Throat Culture Today J02.9 - Acute pharyngitis, unspecified Medications: New amoxicillin-pot clavulanate 875-125 mg 1 tab PO Q12H 14 tabs 0RF Coding Level of Care Code Est Pt Level 3 (01176) Diagnoses Sore throat J02.9 Acute cough R05.1 Cough type: acute
--- OUTSIDE RECORDS SUMMARY | 2025-08-23 13:19 | XMS_ITS | Encounter Summary ---
Author Organization [facility] Address [address] [address] Phone Care Team Providers Care Manager Utilization Management Name Role Phone Faheem Troy MD Primary Care Provider [phone] Self-Referred, Patient Unavailable Unavailab Jaqui Thomas MD Unavailable [phone] Angela Engle MD Unavailable [phone] Rufus Herrera MD Unavailable [phone] Micaela Ladd RN Unavailable Jennifer @[email or web address] Encounter Details Date Type Department Care Team (Late st Contact Info) Description 02/21/2023 Procedure Pass [facility] Periop [address] [place] [address] Social History Tobacco Use Types Packs/Day Years [...] Telemedicine Center for Breast Oncology, [facility] [place] [facility] [place] [address] [address] Ria Tee PERSONAL FINANCIAL COUNSELOR [address] [place] [phone] [email or web address] .[facility] Angela Engle MD [address] [place] [address] [email or web address] documented as of this encounter Visit Diagnoses Not on filedocumented in this encounter Care Teams Manager Utilization Management Relationship Specialty Start Date End Date Faheem Troy MD [address] [place] [address] [place] [address] PCP - General Internal Medicine 09/24/22 Self-Referred, Patient 09/24/22 [place] [address] [email or web address] Historical LMR Provider 09/09/17 Angela Engle MD [address] [place] [address] [email or web address] Medical Oncology 10/03/22 Rufus Herrera MD [facility] [place] [address] [email or web address] Hematology and Oncology 10/06/22 Micaela Ladd RN [address] [place] [address] [email or web address] Primary Infusion Nurse 10/22/22 documented as of this encounter Additional Source Comments The information contained in this document represents components of the legal health record. It is not the complete legal health record.[facility]
--- OUTSIDE RECORDS SUMMARY | 2025-08-23 13:19 | XMS_ITS | Encounter Summary ---
Author Organization [facility] Address [address] [address] Phone Care Team Providers Care Avionics Mechanic Name Role Phone Faheem Troy MD Primary Care Provider [phone] Self-Referred, Patient Unavailable Unavailab Jaqui Thomas MD Unavailable [phone] Angela Engle MD Unavailable [phone] Rufus Herrera MD Unavailable [phone] Micaela Ladd RN Unavailable Jennifer @[email or web address] Encounter Details Date Type Department Care Team (Late st Contact Info) Description 02/10/2025 Procedure Pass [facility] Endoscopy Department [address] [place] [address] Social History Tobacco Use Types Packs/Day Years [...] Telemedicine Center for Breast On[facility], [facility] [place] [facility], [facility] [place] [facility] [place] [address] [address] Ria Tee NP [address] [place] [phone] [email or web address] .[facility] Angela Engle MD [address] [place] [phone] [email or web address] documented as of this encounter Visit Diagnoses Not on filedocumented in this encounter Care Teams Avionics Mechanic Relationship Specialty Start Date End Date Faheem Troy MD [address] [place] [address] [place] [address] PCP - General Internal Medicine 09/24/22 Self-Referred, Patient 09/24/22 [place] [address] [email or web address] Historical LMR Provider 09/09/17 Angela Engle MD [address] [place] [phone] [email or web address] Medical Oncology 10/03/22 Rufus Herrera MD [address] [place] [address] [place] [address] [email or web address] Hematology and Oncology 10/06/22 Micaela Ladd RN [address] [place] [phone] [email or web address] Primary Infusion Nurse 10/22/22 documented as of this encounter Additional Source Comments The information contained in this document represents components of the legal health record. It is not the complete legal health record.[facility]
--- OUTSIDE RECORDS SUMMARY | 2025-08-23 13:20 | XMS_ITS ---
Author Organization [facility] Address [address] [place] [address] Phone Care Team Providers Care Vmware Administrator Name Role Phone Faheem Troy MD Primary Care Provider [phone] Self-Referred, Patient Unavailable Unavailab Jaqui Thomas MD Unavailable [phone] Angela Engle MD Unavailable [phone] Rufus Herrera MD Unavailable [phone] Micaela Ladd RN Unavailable Jennifer @[email or web address] Active Problems Problem Noted Date Diagnosed Date [...] 01/03/2024 No medications scheduled. a. Therapy Complete Angeal Engle MD LEUPROLIDE ACETATE 3 MONTH (LUPRON DEPOT 3 MONTH) 11/13/2022 01/15/2023 leuprolide (LUPRON) e. Reapplying Amended Protocol / Plan Cydney Crespo CNP LEUPROLIDE ACETATE 1 MONTH (LUPRON DEPOT 1 MONTH) 10/22/2022 10/25/2022 No medications scheduled. e. Reapplying Amended Protocol / Plan Cydney Crespo CNP
--- OUTSIDE RECORDS SUMMARY | 2025-08-23 13:20 | XMS_ITS | Clinical Summary ---
Author Organization [facility] Address [address] [address] Phone Care Team Providers Care Pyrometer Mechanic Name Role Phone Faheem Troy MD Primary Care Provider [phone] Self-Referred, Patient Unavailable Unavailab Jaqui Thomas MD Unavailable [phone] Angela Engle MD Unavailable [phone] Rufus Herrera MD Unavailable [phone] Micaela Ladd RN Unavailable Jennifer [email or web address] Allergies Active Allergy Reactions Criticality Noted Date [...] 12:00 PM EDT Infusion Infusion Therapy Services [facility] at [address] [address] Angela Engle MD Glynn-Burke, Kellie, LB Malignant neoplasm of lower-outer quadrant of left breast of female, estrogen receptor positive (Primary Dx); Malignant neoplasm of female breast, unspecified estrogen receptor status, unspecified laterality, unspecified site of breast 08/09/2025 11:00 AM EDT Office Visit [facility], [facility], [facility] at [address] [address] Angela Engle MD Malignant neoplasm of lower-outer quadrant of left breast of female, estrogen receptor positive (Primary Dx); 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 .Count includes the [facility] Angela Engle MD [address] [place] [id number] [email or web address] Health Maintenance Due Date Last Done Comments [...] this topic Medical Devices Implanted Type Area Branch Service Leader Device Identifier Shelf Expiration Date Model / [...] EDT) SODIUM 140 136 - 145 mmol/L [facility] POTASSIUM 4.2 3.4 - 5.1 mmol/L [facility] CHLORIDE 102 98 - 107 mmol/L [facility] CO2 28 22 - 31 mmol/L [facility] BUN 19 6 - 23 mg/dL [facility] CREATININE 0.81 0.50 - 1.20 mg/dL [facility] GLUCOSE 91 70 - 100 mg/dL [facility] ALBUMIN 4.3 3.5 - 5.2 g/dL [facility] TOTAL PROTEIN 7.2 6.4 - 8.3 g/dL [facility] CALCIUM 9.7 8.8 - 10.7 mg/dL [facility] ALKALINE PHOSPHATASE 85 35 - 104 U/L [facility] TOTAL BILIRUBIN 0.3 0.2 - 1.2 mg/dL [facility] AST 26 <33 U/L [facility] ALT 35(H) <34 U/L [facility] GLOBULIN 2.9 2.3 - 4.2 g/dL [facility] EGFR 87 >59 mL/min/1.7 3m2 [facility] Comment:Estimated glomerular filtration rate calculated using the CKD-EPI refit equation. ANION GAP 10 7 - 17 mmol/L [facility] Blood 08/09/2025 10:3 9 AM EDT 08/09/2025 10:43 AM EDT Ria Tee NP LAB BLOOD ORDERABLES Final Result Performing Organization Address City/[facility]/ZIP Co de Phone Number [facility] [address] [place] [address], [facility] * 25-OH vitamin D (08/09/2025 10:39 AM EDT) Pathologist [facility] [place] 25 [place] VIT D (TOTAL) 45 20 - 50 ng/mL [facility] Comment: <10 ng/mL Severe deficiency 10-19 ng/mL Mild to moderate deficiency 20-50 ng/ml Optimum levels 51-80 ng/mL Increased risk of hypercalciuria >80 ng/mL Toxicity possible Blood 08/09/2025 10:3 9 AM EDT 08/09/2025 10:43 AM EDT Ria Tee NP LAB BLOOD ORDERABLES Final Result [facility] [address] [place] [address] * (ABNORMAL) CBC and differential (08/09/2025 10:39 AM EDT) Pathologist [facility] [place] WBC 4.47 4.00 - 10.00 K/uL [facility] RBC 4.63 3.90 - 6.00 M/uL [facility] HGB 12.9 11.5 - 16.4 g/dL [facility] HCT 40.1 36.0 - 48.0 % [facility] PLT 208 150 - 450 K/uL [facility] MCV 86.6 80.0 - 100.0 fL [facility] MCH 27.9 27.0 - 32.0 pg [facility] MCHC 32.2 32.0 - 36.0 g/dL [facility] RDW 13.4 11.5 - 14.5 % [facility] MPV 10.4 8.4 - 12.0 fL [facility] NRBC 0.00 0.00 /100 WBCs [facility] ABSOLUTE NRBC 0.00 0 K/uL [facility] DIFF METHOD Auto [facility] NEUTS 47.7(L) 48.0 - 76.0 % [facility] LYMPHS 40.0 18.0 - 41.0 % [facility] MONOS 8.1 4.0 - 11.0 % [facility] EOS 3.1 0.0 - 5.0 % [facility] BASOS 0.9 0.00 - 1.50 % [facility] % IMMATURE GRANS 0.2 0.00 - 1.00 % [facility] ABSOLUTE NEUTS 2.13 1.92 - 7.60 K/uL [facility] ABSOLUTE LYMPHS 1.79 0.72 - 4.10 K/uL [facility] ABSOLUTE MONOS 0.36 0.16 - 1.10 K/uL [facility] ABSOLUTE EOS 0.14 0.00 - 0.50 K/uL [facility] ABSOLUTE BASOS 0.04 0.00 - 0.15 K/uL [facility] ABS IMMATURE GRANS 0.01 0.00 - 0.10 K/uL [facility] Blood 08/09/2025 10:3 9 AM EDT 08/09/2025 10:43 AM EDT us Ria Tee EDUCATIONAL TECHNICIAN LAB BLOOD ORDERABLES Final Result Performing Organization Address [facility] de Phone Number [address] * Phosphorus (08/09/2025 10:39 AM EDT) PHOSPHORUS 3.7 2.5 - 4.5 mg/dL [facility] Blood 08/09/2025 10:3 9 AM EDT 08/09/2025 10:43 AM EDT us Ria Tee EDUCATIONAL TECHNICIAN LAB BLOOD ORDERABLES Final Result Performing Organization Address [facility] Co de Phone Number [address] * Magnesium (08/09/2025 10:39 AM EDT) MAGNESIUM 2.3 1.7 - 2.6 mg/dL [facility] Blood 08/09/2025 10:3 9 AM EDT 08/09/2025 10:43 AM EDT Ria Tee EDUCATIONAL TECHNICIAN LAB BLOOD ORDERABLES Final Result Performing Organization Address [facility] de Phone Number [address] from Last [address] [place] [address] [address] [address] PPO [employer]PO [employer] PPO [employer]PO [employer] PPO Care Teams Pyrometer Mechanic Relationship Specialty Start Date End Date Faheem Troy MD [address] [place] [address] PCP - General Internal Medicine 09/24/22 Self-Referred, Patient 09/24/22 Jaqui Aleman MD ERICJORJE [id number] [email or web address] rg Historical LMR Provider 09/09/17 Angela Engle MD [address] [place] [phone] [email or web address] 10/03/22 Rufus Herrera MD [address] [place] [address] [place] [address] [email or web address] Hematology and Oncology 10/06/22 Micaela Ladd RN [address] [place] [id number] [email or web address] Primary Infusion Nurse 10/22/22 Additional Source Comments The information contained in this document represents components of the legal health record. It is not the complete legal health record.[facility]
--- OUTSIDE RECORDS SUMMARY | 2025-08-23 13:20 | XMS_ITS | Clinical Summary ---
Author Organization [facility] Facility Address [address] [address] Care Team Providers Care Specialty Finishing Utility Person Name Role Phone Faheem Troy MD Primary Care Provider [phone] Allergies Active Allergy Reactions Criticality Noted Date [...] Sigmoidoscopy 2021 Influenza Vaccine (#1) 2025 Insurance [facility] Care Teams Specialty Finishing Utility Person Relationship Specialty Start Date End Date Faheem Troy MD [address] [place] [id number] PCP - General Internal Medicine 09/19/22
--- OUTSIDE RECORDS SUMMARY | 2025-08-23 13:20 | XMS_ITS | Encounter Summary ---
Author Organization [facility] Address [address] [address] Phone Care Team Providers Care Compliance Review Specialist Name Role Phone Faheem Troy MD Primary Care Provider [phone] Self-Referred, Patient Unavailable Unavailab Jaqui Thomas MD Unavailable Angela Engle MD Unavailable [phone] Rufus Herrera MD Unavailable [phone] Micaela Ladd RN Unavailable Jennifer @[email or web address] Encounter Details Date Type Department Care Team (Late st Contact Info) Description 11/26/2023 [facility] [place] [address] [facility] 4th [place] [address] Social History Tobacco Use Types Packs/Day Years [...] Telemedicine Center for Breast [facility]cology, [facility] [place] [facility], [facility] [place] [address] [facility] 4th [place] [address] Ria Tee NP [address] [place] [phone] [email or web address] Angela Engle MD [address] [place] [phone] [email or web address] documented as of this encounter Visit Diagnoses Not on filedocumented in this encounter Care Teams Compliance Review Specialist Relationship Specialty Start Date End Date Faheem Troy MD [address] [place] [address] [place] [address] PCP - General Internal Medicine 09/24/22 Self-Referred, Patient 09/24/22 [place] [address] [email or web address] Historical LMR Provider 09/09/17 Angela Engle MD [address] [place] [phone] [email or web address] Medical Oncology 10/03/22 Rufus Herrera MD [facility] [place] [address] [email or web address] Hematology and Oncology 10/06/22 Micaela Ladd RN [address] [place] [phone] [email or web address] Primary Infusion Nurse 10/22/22 documented as of this encounter Additional Source Comments The information contained in this document represents components of the legal health record. It is not the complete legal health record.[facility]
== END 2025-08-23 13:13 | disposition home or self-care (01) ==
PROVIDERS: PCP Internal Medicine; Visit Provider Physician Assistant Medical
DX: J02.9 Acute pharyngitis, unspecified (principal); R05.1 Acute cough

== ENCOUNTER → 2025-09-02 13:26 | Outpatient (BNVA) | payer SELFPAY | PROVIDERS: PCP Internal Medicine; Visit Provider Physician Assistant | DX: Z02.79 Encounter for issue of other medical certificate (principal) ==

== ENCOUNTER 2025-11-11 07:29 | Outpatient (AMB) | payer OTHER, SELFPAY ==
--- NOTE | 2025-11-11 07:30 | MHC.OFFVIS ---
Intake Visit Reasons: follow up Intake Note: Patient telehealth follow up for Abnormal CT of the abdomen and lab results Patient denies any GI issues. Maintenance Fitter Required: No Accompanied by: Self / Same As Patient Allergies Sulfa (Sulfonamide Antibiotics) (SULFA (SULFONAMIDE ANTIBIOTICS)) Allergy (Intermediate, Verified 08/23/25 12:51) ITCHING, pruritus Medication List - Last Reconciled 11/11/25 by Trudy Baltazar MD adalimumab-adaz Inject 4 (40mg) pens on day 1 for a total of 160mg or split over two consecutive doses and 2 (40mg) pens on day 15. Maintenance dose will follow 28 days adalimumab-adaz 40 mg (0.4 mL) subcut Q14D amoxicillin-pot clavulanate 875-125 mg 1 tab PO Q12H anastrozole 1 mg PO DAILY benzonatate 200 mg PO BEDTIME PRN dicyclomine 10 mg PO TID PRN 90 days duloxetine 30 mg PO DAILY ibuprofen 800 mg PO TID PRN mesalamine 2.4 grams (2 x 1.2 gram) PO DAILY 90 days HPI HPI follow up: Details: Telemedicine visit for this 55-year-old female with a hx of endometriosis, gallstones, kidney stones and questionable history of atrial flutter here for FU of diverticulitis and ileitis. 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 Had repeat surgery due to infection. She has been seen at the Genetic Clinic at [facility] and advised screening for Ovarian and Pancreatic CA (Referred to Dr Peng at [facility] for pancreatic cancer screening) TODAY'S VISIT: Pt is in [place] till February. Pain comes and goes - 1-2 episodes in a month. Can have pain daily for a week and then no pain for a month. Had an episode of abdominal pain after she took her dog for walk BMs are regular and normal. PAST VISITS: Patient reports lower abdominal pain on and off for more than a year, occasional GERD, 3 or 4 weeks she was with diarrhea, Continues to have intermittent significant abd pain - constant abd pain Mon, Tues and Wed and still has mild pain 05/29/25 Pt was seen at [facility] with abd pain: 10 days ago she began to have worsening lower abdominal pain which was consistent with previous episodes of diverticulitis. She contacted Dr. Baltazar and the patient was prescribed a course of Augmentin. Patient states she completed the course however upon completing the medications she states that the pain returned. She reports that it is diffuse across her lower abdomen, sharp in nature and again consistent with previous episodes of diverticulitis. She does also report urinary frequency but no dysuria Abd CT scan showed: Mid sigmoid colon diverticulitis. No evidence of abscess or free intraperitoneal air. Pt was prescribed Cipro and Flagyl for another 7 days Complains of RLQ pain off and on for a year - unable to identify any precipitating or relieving factors. Can have pain when she wakes up and pain can stay all day and resolve spontaneously. Can go a month or two without pain. Can vary between mild to severe. Always hot due to hot flashes - denies nausea, vomting, fever or chills Pain can go away if she sits or lays down. No change in pain with BM or passage of gas. Sees DR Peng at [facility] and had an EUS on 02/10/2025 at - normal per patient (Has an MRI alternating with EUS every year at [facility]) Complains of lower abdominal pain - on and off for the past few months Last episode was on 09/11/24 - lasted all day Feels like a cross between menstrual cramps and a pulled muscle No association with specific foods Can be at least 1-2 times a month and sometimes more frequent and lasts for a few hours Pain is different from past episodes of diverticulitis Pain improves when she sits down and can come back when she stands up and sometimes it does'nt come back Denies fever, nauseaor vominting, frequent sweating due to hot flahes Stopped taking calcium and vitamin D and constipation has resolved Has a BM daily and denies diarrhea Last Zomata infusion in Nov, 2024 PAST VISITS: Always constipated due to multiple medications. Has a BM once every 3 days Taking colace 3 times a day and trying to use the Miralax Takes 3 days for Miralax to work. Has a weird feeling in her intestines - ? burning feeling. Abd CT results reviewed Denies recurrent abdominal pain. Has noted minor flare ups - starts with constipation, lower abdominal pain. Pain resolves once she is able to have a BM. Taking Pentasa to 2 capsules (1 gram) TID and increased to QID during episodes of abdominal pain with improvement.? Takes Miralax prn and advised to take it daily when she has constipation. I have my moment when I do not feel very good Had shooting pains in the lower abdomen - front lower area in the same spot? - resolves in 5 or 10 min. Comes on randomly without clear precipitating factors. Can come on even if she had'nt eaten anything. Unclear if abdominal pain is related to endometriosis. BM are normal since she has been taking the mesalamine three times a day. Pt worked in the [employer] pool at 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 On most days she notes LLQ pain which is usually always there - some days its worse Worse when she has occasional constipation. 2 months ago she had pea soup and was in terrible pain x 2 weeksNormally takes Pentasa twice a day. Increased Pentasa to 3 to 4 times a day and feels it helps Continuing to take the probiotics Avoiding nuts, popcorn and sesame seeds. Denies fever, chills or sweating Notes pain and gas if she does not eat for a long time. Pt finished her training and is applying for a new job driving a [employer]. Pain resolved after she took antibiotics in mid June. Had lower abdominal pain when she woke up on Thinks pain started after she had a vegetable stir huber with sesame seeds the night before. Pain is not as bad and feels a little better Has been eating a lot of yogurt. Took some Miralax yesterday since she did not have a BM yesterday. Notes some pain when she sits down - had pain while walking yesterday. Has good days and bad days. Notes bloating and stabbing pain once in a while when she is constipated Pain is random and unable to identifywhat triggers the pain. Eating salads almost every day and avoiding gluten since it aggravates the endometriosis. Takes Ibuprofen occasionally and has not taken it in a long time - over a month ago. Takes 1/2 800 mg tablet less than once a month. Episode of diverticulitis in Dec and resolved after a week with antibitoics. Noted intermittent stabbing pain since the past few weeks which resolved after a BM upper abdominal pain became worse and notes radiating to the back Pain is stabbing and constant and 8/10 in intensity No change in pain when she eats - once it felt worse after eating for a little Diagnosed with IBS with diarrhea a few yrs ago when she had post prandial diarrhea - slowly resolved Denies fever, chills heartburn, dysphagia, nausea, vomiting, change in appetite or weight. Denies recent change in bowel habits, constipation, diarrhea, black stools or rectal bleeding. Patient denies major cardiac or pulmonary problems, loud snoring or sleep apnea Denies problems with anesthesia in the past. Denies being on chronic anticoagulation. Denies mouth ulcers, skin rash or joint pains Past hx of a facial rash with itching - dominguez was negative for Lupus. Family history not known since she is?adopted IMAGING STUDIES:? 07/24/[address] SCAN SHOWED: GASTROINTESTINAL TRACT: There is diverticulosis of the colon. There is a stool in the distal colon questionable for mild constipation. The terminal ileum is slightly distended measuring up to 1.9 cm. This demonstrates slight irregular or tethered course and wall irregularity. No wall thickening or enhancement to suggest acute ileitis is seen. No stricture or evidence of obstruction is seen. The small and large bowel is otherwise normal. The appendix is normal. The stomach is normal. 05/03/[address] scan showed 1. Suspect mild ileitis, approximately 15 cm in length. No proximalobstruction. 2. Normal appendix. No diverticulitis. No ascites or fluid collection. 3. Scattered hepatic cysts again noted. 4. Probable punctate gallstone. No gallbladder wall thickening orductal dilatation. ENDOSCOPIC STUDIES:? 05/22/21 COLONOSCOPY SHOWED: Terminal Ileum: Distal 15 cms was examined and showed edema, erythema with luminal narrowing and scattered 4-5 mm ulcers - biopsies were obtained Impression and Post Procedure Diagnosis: No polyps were detected Random biopsies were obtained pelvic TI, right and left colon to check for IBD Moderate diverticulosis seen in the left colon Small hemorrhoids on retroflexed exam. Plan:? Repeat Colonoscopy in 5 years if biopsies are normal. Above findings were reviewed with the patient and? diverticulosis handouts were given in the discharge area BIOPSIES SHOWED: A.? Terminal ileum, biopsy:? Actively inflamed ileocolonic mucosa; no fully developed chronic injury seen. B.? Colon, right, biopsy:? Colonic mucosa within normal limits. C.? Colon, left, biopsy:? Colonic mucosa within normal limits. COMMENT:? The differential diagnosis for active inflammation in the terminal ileum in this case includes incipient inflammatory bowel disease, infection, drugs (e.g. NSAIDs) and other immune mediated processes.? No chronic inflammatory change is seen.? Please correlate with clinical history [facility] Medical History Arthralgia Vitamin D deficiency 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 of left breast, stage 1 (~05/2022) Hx of deep venous thrombosis Adopted Ileitis Kidney stone Surgical History Hx of breast reconstruction (~11/05/23) History of bilateral salpingo-oophorectomy (BSO) Hx of bilateral mastectomy (~08/19/22) History of cystoscopy History of lithotripsy H/O esophagogastroduodenoscopy H/O colonoscopy (~05/22/21) History of laparoscopy (~2009) History of removal of calculus of renal pelvis through percutaneous nephrostomy (~2013) Family History Other Unknown family medical history Social History Household Members: Spouse Housing: House Alcohol intake: current Alcohol intake frequency: holidays/special occasions only Patient Tobacco Use Status: Former Tobacco user Years Smoked: 10 e-Cigarette/Vaping Use: Never Used service: No Current occupational status: unemployed Current occupation: right hand dominant Cognitive needs: No Hearing needs: No Vision needs: Yes Review of Systems Const All systems reviewed & are unremarkable except as noted in HPI and below Telehealth Telehealth Telehealth Platform: Telephone Location of provider rendering services: practice address Location of patient: address on file Patient Identification confirmed using: Name, : Yes Telehealth method: voice only Patient verbally consented to treatment: Yes Patient verbally consented to billing insurance company: Yes Patient informed of any privacy concerns related to visit: Yes Minutes spent on Phone/Video with Pt.: 15 Assessment & Plan Assessment & Plan (1) Crohn's disease: Code(s): K50.90 - Crohn's disease, unspecified, without complications Category: Medical (2) Drug induced constipation: Code(s): K59.03 - Drug induced constipation Category: Medical (3) Diverticulitis: Code(s): K57.92 - Diverticulitis of intestine, part unspecified, without perforation or abscess without bleeding Category: Medical (4) Abnormal CT of the abdomen: Code(s): R93.5 - Abnormal findings on diagnostic imaging of other abdominal regions, including retroperitoneum Category: Medical Plan 55 YF with worsening upper abdominal pain radiating to the back - improving slowly after she started taking antibiotics Abd CT scan showed ileitis - possibly related to bacterial gastroenteritis versus Crohn's disease Episode of diverticulitis in Dec, 2020 (confirmed on CT scan) and resolved with antibiotic treatment. Further evaluation with labs showed an elevated fecal calprotectin of 148 and IBD serologies were normal. Colonoscopy showed moderate left sided diverticulosis and edema, erythema with luminal narrowing and scattered 4-5 mm ulcers in the TI - biopsies were obtained TI bx (reviewed with pathology) revealed actively inflamed ileocolonic mucosa; no fully developed chronic injury seen. Left sided abdominal pain possibly due to painful diverticular disease versus kidney stones versus endometriosis. Pt was advised to increase Pentasa to 2 capsules (1 gram) TID with improvement in abdominal pain.? 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 She has been seen at the Genetic Clinic at [facility] and advised screening for Ovarian and Pancreatic CA (Referred to Dr Peng at [facility] for pancreatic cancer screening). 01/10/23 Always constipated due to multiple medications. Has a BM once every 3 days Taking colace 3 times a day and trying to use the Miralax Pt was advised to take Senna once daily for constipation 09/16/24 Pt complains of intermittent lower abdominal pain Advised labs and CT scan Pt is on anastrozole and abd pain reported as a side effect in 7-9% of patients. 06/10/25 Pt advised to check a stool calprotectin - borderline elevated at 80 07/20/25 ABD MRI SHOWED: Liver: There is no loss of signal intensity in the liver on opposed phase imaging to suggest steatosis. Again seen are multiple hepatic cysts, the largest of which is in the left lobe measuring 4.9 cm in diameter. There is no enhancing liver mass. The hepatic and portal veins are patent. There is no intrahepatic biliary dilatation. Visualized bowel: There are small bowel loops in the left midabdomen which demonstrate wall thickening and mucosal hyperenhancement, suggestive of active inflammatory bowel disease. The terminal ileum is unremarkable. Peristalsis appears normal. No colonic abnormality is seen. IMPRESSION: 1. Small bowel loops in the left midabdomen which demonstrate wall thickening and mucosal hyperenhancement, suggestive of active inflammatory bowel disease. 2. Inflammatory change of the root of the mesentery with associated small lymph nodes as noted on CT. 11/11/25 Pt is in [place] till February. Pain comes and goes - 1-2 episodes in a month. Can have pain daily for a week and then no pain for a month. Waiting for approval for Humira biosimilar. FU TV in 3 months Prior to therapy start: ? Evaluate for presence of malignancy (especially skin cancer), congestive heart failure, neurologic disease or symptoms, lymphadenopathy, and, for the presence of current or latent infection, ensure age-appropriate vaccinations are up to date and in general no live vaccines are administered within 4 weeks of starting therapy (AAD [Menter 2019]; EuroGuiDerm [Nast 2023]). Refer to institutional protocols for vaccination and monitoring requirements prior to initiating therapy. ? Labs:?CBC with differential, complete metabolic panel, test, C-reactive protein, serologic testing for hepatitis B virus (hepatitis B surface antigen, hepatitis B surface antibody, hepatitis B core antibody), hepatitis C virus antibody, HIV; test for tuberculosis (TB) infection (latent TB) (eg, Quantiferon Gold); consider two-step TB test in immunocompromised patients or interferon gamma release assay for TB in patients who have had Bacillus Calmette-Gu?rin vaccine; chest radiograph if testing for TB infection is positive (AAD [Menter 2019]; ACG [Marcos 2018]; EuroGuiDerm [Nast 2023]; Christophe 2013). During therapy: ? Evaluate for presence of malignancy (especially skin cancer), lymphadenopathy, infections/infection risks, congestive heart failure, or neurological symptoms; hypersensitivity reaction, lupus-like syndrome, injection-site reactions (ACG [Marcos 2018]; EuroGuiDerm [Nast 2023]). Monitor for improvement in symptoms. ? Labs: CBC, LFTs at 4 and 12 weeks, then every 3 to 6 months or as clinically appropriate (EuroGuiDerm [Nast 2023]); annual testing/chest radiograph for patients at high-risk patients (eg, contact with individuals with TB disease [active TB]); hepatitis B carriers should be periodically evaluated for signs/symptoms of active hepatitis B infection (AAD [Menter 2019]; EuroGuiDerm [Nast 2023]; Christophe 2013). Consider anti-drug antibody and/or therapeutic drug monitoring in the setting of nonresponse or loss of response to tumor necrosis factor inhibitor therapy. After therapy: ? Periodically evaluate patients who are hepatitis B carriers for signs/symptoms of active hepatitis B infection (AAD [Menter 2019]). Follow-up appointment in 2 months Coding Level of Care Code Tele Est Pt Level 3 (70260) Diagnoses Crohn's disease K50.90 Drug induced constipation K59.[address] of the abdomen R93.5 Time Spent (min) 15
--- OUTSIDE RECORDS SUMMARY | 2025-11-11 07:30 | XMS_ITS | Encounter Summary ---
Author Organization [facility] Address [address] [address] Phone Care Team Providers Care Machine Long Goods Helper Name Role Phone Faheem Troy MD Primary Care Provider [phone] Self-Referred, Patient Unavailable Unavailab Jaqui Thomas MD Unavailable [phone] Angela Engle MD Unavailable [phone] Rufus Herrera MD Unavailable [phone] Micaela Ladd RN Unavailable Jennifer [email or web address] Encounter Details Date Type Department Care Team (Late st Contact Info) Description 02/10/2025 Procedure Pass [facility] Endoscopy Department [address] [place] [address] Social History Tobacco Use Types Packs/Day Years [...] Telemedicine [facility], [facility] [place] [facility], [facility] [place] [facility] [place] [address] [address] Ria Tee NP [address] [place] [phone] [email or web address] .[email or web address] Angela Engle MD [address] [place] [phone] [email or web address] documented as of this encounter Visit Diagnoses Not on filedocumented in this encounter Care Teams Machine Long Goods Helper Relationship Specialty Start Date End Date Faheem Troy MD [address] [place] [address] [place] [address] PCP - General Internal Medicine 09/24/22 Self-Referred, Patient 09/24/22 [place] [address] [email or web address] Historical LMR Provider 09/09/17 Angela Engle MD [address] [place] [phone] [email or web address] Medical Oncology 10/03/22 Rufus Herrera MD [address] [place] [address] [place] [address] [email or web address] Hematology and Oncology 10/06/22 Micaela Ladd RN [address] [place] [phone] [email or web address] Primary Infusion Nurse 10/22/22 documented as of this encounter Additional Source Comments The information contained in this document represents components of the legal health record. It is not the complete legal health record.[facility]
--- OUTSIDE RECORDS SUMMARY | 2025-11-11 07:31 | XMS_ITS | Encounter Summary ---
Author Organization [facility] Address [address] [address] Phone Care Team Providers Care Rn Lvn Name Role Phone Faheem Troy MD Primary Care Provider [phone] Self-Referred, Patient Unavailable Unavailab Jaqui Thomas MD Unavailable [phone] Angela Engle MD Unavailable [phone] Rufus Herrera MD Unavailable [phone] Micaela Ladd RN Unavailable Jennifer [email or web address] Encounter Details Date Type Department Care Team (Late st Contact Info) Description 11/26/2023 Procedure Pass [facility], MRI [address] [facility] 4th [place] [address] Social History Tobacco Use Types Packs/Day Years [...] Telemedicine Center for Breast Oncology, [facility], [place] [facility] [place] [facility] [place] [address] [facility] [address]th [place] [address] Ria Tee NP [address] [place] [phone] [email or web address] Angela Engle MD [address] [place] [id number] [email or web address] documented as of this encounter Visit Diagnoses Not on filedocumented in this encounter Care Teams Rn Lvn Relationship Specialty Start Date End Date Faheem Troy MD [address] [place] [address] [place] [address] PCP - General Internal Medicine 09/24/22 Self-Referred, Patient 09/24/22 [place] [address] [email or web address] Historical LMR Provider 09/09/17 Angela Engle MD [address] [place] [id number] [email or web address] Medical Oncology 10/03/22 Rufus Herrera MD [facility] [place] [address] [email or web address] Hematology and Oncology 10/06/22 Micaela Ladd RN [address] [place] [id number] [email or web address] Primary Infusion Nurse 10/22/22 documented as of this encounter Additional Source Comments The information contained in this document represents components of the legal health record. It is not the complete legal health record.[facility]
--- OUTSIDE RECORDS SUMMARY | 2025-11-11 07:31 | XMS_ITS | Clinical Summary ---
Author Organization [facility] Address [address] [address] Care Team Providers Care Lath Hand Name Role Phone Faheem Troy MD Primary Care Provider [phone] Allergies Active Allergy Reactions Criticality Noted Date [...] Sigmoidoscopy 2021 Influenza Vaccine (#1) 2025 Insurance [facility] Care Teams Lath Hand Relationship Specialty Start Date End Date Faheem Troy MD [address] [place] [id number] PCP - General Internal Medicine 09/19/22
--- OUTSIDE RECORDS SUMMARY | 2025-11-11 07:31 | XMS_ITS | Encounter Summary ---
Author Organization [facility] Address [address] [address] Phone Care Team Providers Care Wooden Tank Erector Name Role Phone Faheem Troy MD Primary Care Provider [phone] Self-Referred, Patient Unavailable Unavailab Jaqui Thomas MD Unavailable Angela Engle MD Unavailable [phone] Rufus Herrera MD Unavailable Micaela Ladd RN Unavailable Jennifer [email or web address] Encounter Details Date Type Department Care Team (Late st Contact Info) Description 02/21/2023 Procedure Pass [facility] Periop [address] [place] [address] Social History Tobacco Use Types Packs/Day Years [...] Telemedicine Center for Breast Oncology, [facility], [facility] [place] [facility] [place] [address] [address] Ria Tee [employer] [address] [place] [phone] [email or web address] .[facility] Angela Engle MD [address] [place] [phone] [email or web address] documented as of this encounter Visit Diagnoses Not on filedocumented in this encounter Care Teams Wooden Tank Erector Relationship Specialty Start Date End Date Faheem Troy MD [address] [place] [address] [place] [address] PCP - General Internal Medicine 09/24/22 Self-Referred, Patient 09/24/22 [place] [address] [email or web address] Historical LMR Provider 09/09/17 Angela Engle MD [address] [place] [phone] [email or web address] Medical Oncology 10/03/22 Rufus Herrera MD [address] [facility] [place] [address] [email or web address] Hematology and Oncology 10/06/22 Micaela Ladd RN [address] [place] [address] [email or web address] Primary Infusion Nurse 10/22/22 documented as of this encounter Additional Source Comments The information contained in this document represents components of the legal health record. It is not the complete legal health record.[facility]
--- OUTSIDE RECORDS SUMMARY | 2025-11-11 07:31 | XMS_ITS | Clinical Summary ---
Author Organization [facility] Address [address] [address] Phone Care Team Providers Care Road Roller Engineer Name Role Phone Faheem Troy MD Primary Care Provider [phone] Self-Referred, Patient Unavailable Unavailab Jaqui Thomas MD Unavailable [phone] Angela Engle MD Unavailable [phone] Rufus Herrera MD Unavailable [phone] Micaela Ladd RN Unavailable [email or web address], [facility] Allergies Active Allergy Reactions Criticality Noted Date Comments Sulfa (Sulfonamide Antibiotics) Itching,Unknown 08/14/2012 Medications mesalamine (PENTASA) 500 MG CR capsule Take 1,000 mg by mouth. Active omeprazole (PRILOSEC OTC) 20 MG tablet Take 1 tablet (20 mg total) by mouth daily as needed. 06/01/2024 Active magnesium glycinate 200 mg magnesium capsule Take 200 mg by mouth daily with breakfast. Active DULoxetine (CYMBALTA) 30 MG capsule Take 1 capsule (30 mg total) by mouth daily. 90 capsule 2 08/09/2025 Active cholecalciferol 25 MCG (1,000 unit) tablet Take 2 tablets (2,000 Units total) by mouth daily. Patient thinks dose is about 2000 U daily 08/09/2025 Active calcium citrate (CALCITRATE) 950 mg (200 mg elemental) tablet Take 1 tablet (950 mg total) by mouth daily. 08/09/2025 Active anastrozole (ARIMIDEX) 1 mg tablet Take 1 tablet (1 mg total) by mouth daily. 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 Malignant neoplasm of lower- outer quadrant of left breast of female, estrogen receptor positive 10/02/2022 Cancer Staging:Clinical: Unsigned Crohn's disease 09/20/2022 Encounters Date Type Department Care Team Description 10/11/2025 [facility], [facility], [facility] [address] [place] [address] Ria Tee NP Medication Refill from Last 3 Months Social History Tobacco [...] Telemedicine [facility], [facility], [facility] [place] [address] [address] Ria Tee NP [address] [place] [id number] [email or web address] Angela Engle MD [address] [place] [id number] [email or web address] Health Maintenance Due Date Last Done [...] VACCINE (#1) 2025 COVID-19 VACCINE ( - 2024-2 6 season) 2025 SMOKING Hx and SMOKELESS TOB ACCO SCREENING 02/10/2026 02/10/2025 SCREENING FOR DIABETES 08/09/2028 08/09/2025 RSV VACCINE (1 - 1-dose 75+ series) 2047 HEPATITIS A VACCINES Aged Out No long [...] this topic Medical Devices Implanted Type 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 Device Identifier Shelf Expiration Date Model / Serial / Lot Breast Breast Insurance [employer] PPO [employer] [facility] [employer] [facility] [employer] [facility] P[employer] PPO [facility] PPO Care Teams Road Roller Engineer Relationship Specialty Start Date End Date Faheem Tryo MD [address] [place] [address] [place] [address] PCP - General Internal Medicine 09/24/22 Self-Referred, Patient 09/24/22 [place] [address] [email or web address] Historical LMR Provider 09/09/17 Angela Engle MD [address] [place] [id number] [email or web address] Medical Oncology 10/03/22 Rufus Herrera MD [address] [place] [address] [place] [address] [email or web address] Hematology and Oncology 10/06/22 Micaela Ladd RN [address] [place] [id number] [email or web address] Primary Infusion Nurse 11/29/22 Additional Source Comments The information contained in this document represents components of the legal health record. It is not the complete legal health record.[facility]
--- OUTSIDE RECORDS SUMMARY | 2025-11-11 07:31 | XMS_ITS ---
Author Organization [facility] Address [address] [place] [address] Phone Care Team Providers Care Digital Account Director Name Role Phone Faheem Troy MD Primary Care Provider [phone] Self-Referred, Patient Unavailable Unavailab Jaqui Thomas MD Unavailable [phone] Angela Engle MD Unavailable [phone] Rufus Herrera MD Unavailable [phone] Micaela Ladd RN Unavailable [email or web address] Active Problems Problem Noted Date Diagnosed [...]
== END 2025-11-11 08:58 | disposition home or self-care (01) ==
LOC: HO.HGI 07:29
PROVIDERS: PCP Internal Medicine; Visit Provider Internal Medicine Gastroenterology
DX: K50.90 Crohn's disease, unspecified, without complications (principal); K59.03 Drug induced constipation; K57.92 Diverticulitis of intestine, part unspecified, without perforation or abscess without bleeding; R93.5 Abnormal findings on diagnostic imaging of other abdominal regions, including retroperitoneum
CPT/HCPCS: 98013